=== PATIENT | male | born 1975 | race Caucasian/White ===

== ENCOUNTER 2016-07-23 15:37 | Inpatient (IN) | payer OTHER ==
[2016-07-23] MEDS ORDERED: SODIUM CHLORIDE 0.9% 500 ML IV STA (15:57)
[2016-07-23] MEDS ORDERED: HYDROmorphone 1 MG/ML 1 ML SYRINGE IVP STA (15:57)
--- NOTE | 2016-07-23 16:12 | ED ---
Abdominal Pain HPI - General Chief Complaint: Abdominal Pain Stated Complaint: liver/pancreas-sent by Time Seen by Provider: 07/23/16 15:45 Source: patient, RN notes reviewed Mode of arrival: ambulatory Limitations: no limitations - History of Present Illness Initial Comments: 41-year-old male with a recent alcoholic who quit one year ago presents because he had abdominal pain nausea vomiting any yellowing of the eyes. Patient states he went to his family care doctor and referred here. Patient states she' s had been having brown to the urine as well. Patient denies any pain or discomfort with this just at this time but states he was riding a few days ago. Patient denies any history of liver or pancreatic issues in the past. Patient states that he was concerned due to his symptoms and went to his doctor and been his doctor has now referred him here.Patient denies any recent fever, chills, shortness of breath, chest pain, back pain, numbness or tingling, dysuria or hematuria, constipation or diarrhea, headaches or visual changes, or any other current symptoms. - Related Data Home Medications Medication Instructions Recorded Confirmed Omeprazole Magnesium [Prilosec Otc] 20 mg PO QAM 07/23/16 07/23/16 Ranitidine HCl [Zantac] 150 mg PO HS 07/23/16 07/23/16 Allergies Allergy/AdvReac Type Severity Reaction Status Date / Time Penicillins Allergy Anaphylaxis Verified 07/23/16 16:12 Review of Systems ROS Statement: Those systems with pertinent positive or pertinent negative responses have been documented in the HPI. ROS Other: All systems not noted in ROS Statement are negative. Past Medical History Past Medical History: No Reported History Additional Past Medical History / Comment(s): alcohol abuse for years History of Any Multi-Drug Resistant Organisms: None Reported Past Surgical History: No Surgical Hx Reported Past Psychological History: No Psychological Hx Reported Smoking Status: Current every day smoker Past Alcohol Use History: Abuse Past Drug Use History: None Reported General Exam - General Exam Comments Initial Comments: General: The patient is awake and alert, in no distress, and does not appear acutely ill. Eye: Pupils are equal, round and reactive to light, extra-ocular movements are intact; there is normal conjunctiva bilaterally. Jaundice Ears, nose, mouth and throat: There are moist mucous membranes and no oral lesions. Neck: The neck is supple, there is no tenderness. Cardiovascular: There is a regular rate and rhythm. No murmur, rub or gallop is appreciated. Respiratory: Lungs are clear to auscultation, respirations are non-labored, breath sounds are equal. No wheezes, stridor, rales, or rhonchi. Gastrointestinal: Soft, non-distended, non-tender abdomen without masses or organomegaly noted. There is no rebound or guarding present. No CVA tenderness. Bowel sounds are unremarkable. Back: There is no tenderness to palpation in the midline. There is no obvious deformity. No rashes noted. Musculoskeletal: Normal ROM, no tenderness, There is no pedal edema. There is no calf tenderness or swelling. Sensation intact. Pulses equal bilaterally 2+. Neurological: CN II-XII intact, There are no obvious motor or sensory deficits. Coordination appears grossly intact. Speech is normal. Skin: Skin is warm and dry and no rashes or lesions are noted. Psychiatric: Cooperative, appropriate mood & affect, normal judgment. Limitations: no limitations Course Vital Signs 07/23/16 07/23/16 15:40 17:59 Temperature 97.8 F 97.8 F Pulse Rate 86 76 Respiratory 20 18 Rate Blood Pressure 141/90 124/79 O2 Sat by Pulse 98 99 Oximetry Medical Decision Making - Medical Decision Making 41-year-old male complaining of liver and pancreas issues per his doctor. At this time lab work is reviewed. Patient appears to have elevated pancreatic enzymes also appears to have elevated liver enzymes with reactive hep C here however laboratory done outpatient we does show a nonreactive hepatitis C. At this time we will admit the patient for IV hydration. At this time we will continue tract patient's labs we will consult GI and Dr. Greenfield has agreed to the admission per Dr. Tenorio. - Lab Data Result diagrams: 07/23/16 15:55 07/23/16 15:55 Lab Results 07/23/16 07/23/16 07/23/16 Range/Units 15:55 15:55 15:55 WBC 8.5 (3.8-10.6) k/uL RBC 5.38 (4.30-5.90) m/uL Hgb 17.3 (13.0-17.5) gm/dL Hct 54.7 H (39.0-53.0) % MCV 101.5 H (80.0-100.0) fL MCH 32.1 (25.0-35.0) pg MCHC 31.6 (31.0-37.0) g/dL RDW 13.7 (11.5-15.5) % Plt Count 258 (150-450) k/uL Neutrophils % 53 % Lymphocytes % 32 % Monocytes % 6 % Eosinophils % 3 % Basophils % 2 % Neutrophils # 4.5 (1.3-7.7) k/uL Lymphocytes # 2.7 (1.0-4.8) k/uL Monocytes # 0.5 (0-1.0) k/uL Eosinophils # 0.2 (0-0.7) k/uL Basophils # 0.1 (0-0.2) k/uL Macrocytosis Slight PT (9.0-12.0) sec INR (<1.1) APTT (22.0-30.0) sec Sodium 141 (137-145) mmol/L Potassium 4.8 (3.5-5.1) mmol/L Chloride 107 (98-107) mmol/L Carbon Dioxide 21 L (22-30) mmol/L Anion Gap 13 mmol/L BUN 12 (9-20) mg/dL Creatinine 0.75 (0.66-1.25) mg/dL Est GFR (MDRD) Af Amer >60 (>60 ml/min/1.73 sqM) Est GFR (MDRD) Non-Af >60 (>60 ml/min/1.73 sqM) Glucose 84 (74-99) mg/dL Plasma Lactic Acid Nelson 1.0 (0.7-2.0) mmol/L Calcium 9.3 (8.4-10.2) mg/dL Phosphorus 4.6 H (2.5-4.5) mg/dL Magnesium 2.0 (1.6-2.3) mg/dL Total Bilirubin 7.6 H (0.2-1.3) mg/dL AST 1465 H (17-59) U/L ALT 2595 H (21-72) U/L Alkaline Phosphatase 234 H (38-126) U/L Ammonia 13 (<30) umol/L Total Protein 8.0 (6.3-8.2) g/dL Albumin 4.5 (3.5-5.0) g/dL Amylase 129 H (30-110) U/L Lipase 493 H (23-300) U/L Urine Color Urine Appearance (Clear) Urine pH (5.0-8.0) Ur Specific Nichols (1.001-1.035) Urine Protein (Negative) Urine Glucose (UA) (Negative) Urine Ketones (Negative) Urine Blood (Negative) Urine Nitrite (Negative) Urine Bilirubin (Negative) Urine Urobilinogen (<2.0) mg/dL Ur Leukocyte Esterase (Negative) Hepatitis A IgM Ab NEGATIVE Hep Bs Antigen Negative Hep B Core IgM Ab NEGATIVE Hep C IgG Ab Reactive (Negative) 07/23/16 07/23/16 Range/Units 15:55 15:55 WBC (3.8-10.6) k/uL RBC (4.30-5.90) m/uL Hgb (13.0-17.5) gm/dL Hct (39.0-53.0) % MCV (80.0-100.0) fL MCH (25.0-35.0) pg MCHC (31.0-37.0) g/dL RDW (11.5-15.5) % Plt Count (150-450) k/uL Neutrophils % % Lymphocytes % % Monocytes % % Eosinophils % % Basophils % % Neutrophils # (1.3-7.7) k/uL Lymphocytes # (1.0-4.8) k/uL Monocytes # (0-1.0) k/uL Eosinophils # (0-0.7) k/uL Basophils # (0-0.2) k/uL Macrocytosis PT 11.7 (9.0-12.0) sec INR 1.2 (<1.1) APTT 27.2 (22.0-30.0) sec Sodium (137-145) mmol/L Potassium (3.5-5.1) mmol/L Chloride (98-107) mmol/L Carbon Dioxide (22-30) mmol/L Anion Gap mmol/L BUN (9-20) mg/dL Creatinine (0.66-1.25) mg/dL Est GFR (MDRD) Af Amer (>60 ml/min/1.73 sqM) Est GFR (MDRD) Non-Af (>60 ml/min/1.73 sqM) Glucose (74-99) mg/dL Plasma Lactic Acid Nelson (0.7-2.0) mmol/L Calcium (8.4-10.2) mg/dL Phosphorus (2.5-4.5) mg/dL Magnesium (1.6-2.3) mg/dL Total Bilirubin (0.2-1.3) mg/dL AST (17-59) U/L ALT (21-72) U/L Alkaline Phosphatase (38-126) U/L Ammonia (<30) umol/L Total Protein (6.3-8.2) g/dL Albumin (3.5-5.0) g/dL Amylase (30-110) U/L Lipase (23-300) U/L Urine Color Dark Brown Urine Appearance Clear (Clear) Urine pH 6.0 (5.0-8.0) Ur Specific Nichols 1.018 (1.001-1.035) Urine Protein Trace H (Negative) Urine Glucose (UA) Negative (Negative) Urine Ketones Negative (Negative) Urine Blood Negative (Negative) Urine Nitrite Negative (Negative) Urine Bilirubin 2+ H (Negative) Urine Urobilinogen 4.0 (<2.0) mg/dL Ur Leukocyte Esterase Negative (Negative) Hepatitis A IgM Ab Hep Bs Antigen Hep B Core IgM Ab Hep C IgG Ab (Negative) - Radiology Data Radiology results: report reviewed, image reviewed Disposition Clinical Impression: Alcoholic hepatitis, Hepatitis C, Jaundice, Acute pancreatitis Disposition: ADMITTED IP TO THIS [facility] Condition: Stable Referrals: Georgia Waggoner MD [Primary Care Provider] - 1-2 days Time of Disposition: 18:07 Decision Date: 07/23/16 Decision Time: 18:07
[2016-07-23 16:14] LABS: Basophils # (A) 0.1 k/uL (0-0.2); Basophils % (A) 2 %; CH 32.5; CHCM 32.2; Eosinophils # (A) 0.2 k/uL (0-0.7); Eosinophils % (A) 3 %; HCT 54.7 % (39.0-53.0); HDW 2.62; HGB 17.3 gm/dL (13.0-17.5); Luc # (Auto) 0.37; Luc % (Auto) 4; Lymphocytes # (A) 2.7 k/uL (1.0-4.8); Lymphocytes % (A) 32 %; MCH 32.1 pg (25.0-35.0); MCHC 31.6 g/dL (31.0-37.0); MCV 101.5 fL (80.0-100.0); Macrocytosis Slight; Mean Platelet Volume 7.9; Monocytes # (A) 0.5 k/uL (0-1.0); Monocytes % (A) 6 %; Neutrophils # (A) 4.5 k/uL (1.3-7.7); Neutrophils % (A) 53 %; RBC 5.38 m/uL (4.30-5.90); RDW 13.7 % (11.5-15.5); WBC 8.5 k/uL (3.8-10.6); WBC (Perox) 7.73
[2016-07-23 16:25] LABS: Appearance,Urine Clear (Clear); Bilirubin,Urine 2+ (Negative); Glucose,Urine (UA) Negative (Negative); Ketones,Urine Negative (Negative); Leukocyte Esterase,Urine Negative (Negative); Nitrite,Urine Negative (Negative); Protein,Urine Trace (Negative); Specific Gravity,Urine 1.018 (1.001-1.035); UA Billing (MACRO vs. MICRO) CHEM
[2016-07-23 16:26] LABS: Alkaline Phosphatase 234 U/L (38-126); Amylase 129 U/L (30-110); Anion Gap 13 mmol/L; Blood Urea Nitrogen 12 mg/dL (9-20); Calcium 9.3 mg/dL (8.4-10.2); Carbon Dioxide 21 mmol/L (22-30); Chloride 107 mmol/L (98-107); Glucose 84 mg/dL (74-99); Non-African American GFR(MDRD) >60 (>60 ml/min/1.73 sqM); Phosphorous 4.6 mg/dL (2.5-4.5); Potassium 4.8 mmol/L (3.5-5.1); Sodium 141 mmol/L (137-145); Total Bilirubin 7.6 mg/dL (0.2-1.3)
[2016-07-23 16:36] LABS: AST 1465 U/L (17-59)
[2016-07-23 16:43] LABS: INR 1.2 (<1.1); Partial Thromboplastin Time 27.2 sec (22.0-30.0); Prothrombin Time 11.7 sec (9.0-12.0)
[2016-07-23 16:44] LABS: ALT 2595 U/L (21-72)
--- NOTE | 2016-07-23 17:11 | XR ---
EXAMINATION TYPE: XR abdomen 2V DATE OF EXAM: 07/23/2016 COMPARISON: 11/20/2010 HISTORY: Abdominal pain TECHNIQUE: 2 views FINDINGS: There is no sign of intestinal obstruction or pneumoperitoneum. Fecal pattern is normal. Juhi ng bases are clear. There are no pathologic calcifications over the kidneys. IMPRESSION: Nonacute abdomen. No change.
[2016-07-23 17:15] LABS: Hepatitis B Surface Ag Index 0.07
[2016-07-23 17:16] LABS: Hepatitis B Core IgM Index 0.04; Hepatitis C Virus IgG Ab Reactive (Negative)
--- NOTE | 2016-07-23 17:23 | US ---
EXAMINATION TYPE: US abdomen limited DATE OF EXAM: 07/23/2016 COMPARISON: NONE CLINICAL HISTORY: RUQ. EXAM MEASUREMENTS: Liver Length: 16.6 cm Gallbladder Wall: 1.0 cm CBD: 0.3 cm Right Kidney: 11.9 x 4.7 x 5.3 cm Pancreas: wnl Liver: wnl Gallbladder: very thick edematous wall, no stones visualized Evidence for sonographic Wright's sign: No CBD: wnl Right Kidney: wnl IMPRESSION: There is gallbladder wall thickening. No stones seen. This is suggestive of acalculous ch olecystitis. No dilated ducts.
[2016-07-23] MEDS ORDERED: NALOXONE 0.4 MG/ML 1 ML VIAL IV PRN (18:08)
[2016-07-23] MEDS ORDERED: ONDANSETRON 4 MG/2 ML VIAL IVP PRN (18:08)
[2016-07-23] MEDS: SODIUM CHLORIDE 0.9% 1,000 ML IV SCH (18:31)
[2016-07-23 18:59] LABS: Acetaminophen <10.0 ug/mL; Alcohol <10 mg/dL
[2016-07-23] MEDS: HYDROmorphone 1 MG/ML 1 ML SYRINGE IV PRN ×2 (19:19→22:29)
[2016-07-23 19:29] VITALS: BMI 24.7
[2016-07-23] MEDS ORDERED: FAMOTIDINE 20 MG TAB PO SCH (21:00)
[2016-07-23] MEDS: CALCIUM CARBONATE LIQUID 500 MG/5 ML CUP PO SCH (22:30)
[2016-07-23] MEDS: NICOTINE 21MG/24HR PATCH TRANSDERM SCH (22:30)
[2016-07-24] MEDS: HYDROmorphone 1 MG/ML 1 ML SYRINGE IV PRN ×7 (02:16→23:03)
[2016-07-24] MEDS: SODIUM CHLORIDE 0.9% 1,000 ML IV SCH ×3 (07:01→16:17)
[2016-07-24] MEDS: PANTOPRAZOLE 40 MG TABLET PO SCH (07:01)
[2016-07-24] MEDS: CALCIUM CARBONATE LIQUID 500 MG/5 ML CUP PO SCH ×3 (07:01→17:20)
--- NOTE | 2016-07-24 07:44 | HP ---
DATE OF ADMISSION: 07/23/2016 PRESENTING COMPLAINT: Abdominal pain. HISTORY OF PRESENTING COMPLAINT: This is a 41-year-old patient who follows with Dr. Georgia Waggoner. Patient has been a long-standing alcoholic for over 20 years. Stopped drinking about a month ago since not feeling well. Patient started not feeling well about 3-4 weeks and increasing abdominal pain for the last 2 weeks; urine becoming strongly discolored. Having increasing upper abdominal pain, nausea, decreased bowel movement. No fever. Went to a local doctor and was sent in. Patient was found to have grossly elevated liver enzymes and admitted for the same. REVIEW OF SYSTEMS: Weight loss, loss of appetite. HEENT: None. RESPIRATORY: Some wheezing. CARDIOVASCULAR: None. GASTROINTESTINAL: As above. GENITOURINARY: None. MUSCULOSKELETAL: None. Dermatological: Yellow eyes. HEMATOLOGICAL: None. LYMPHATICS: None. PSYCHIATRY: Anxious. NEUROLOGICAL: None. PAST MEDICAL HISTORY: History of alcohol abuse. PAST SURGICAL HISTORY: None. SOCIAL HISTORY: Pack and a half day. Alcohol for over 20 years, cut back a month ago, basically homeless, currently stable in parents. Family history of myocardial infarction and MS. HOME MEDICATIONS: 1. Zantac 150 mg q.h.s. 2. Prilosec 20 mg p.o. daily. ALLERGIES: PENICILLIN. On examination, temperature 98, pulse 76, respiration 18, blood pressure 120/72, pulse ox 99% on room air., General appearance: Average build, lying in bed, somewhat restless. EYES: Pupils equal. Conjunctivae yellow. HEENT: Oral cavity normal. NECK: JVD not raised. Mass not palpable. RESPIRATORY: Effort increased. LUNGS: Decreased breath sounds. Mild wheezing. CARDIOVASCULAR: First and second sounds normal. No edema. ABDOMEN: Diffuse abdominal tenderness. Mild guarding. No rigidity. LYMPHATIC: No lymph node palpable in neck or axillae. PSYCHIATRY: Alert and oriented x3. Mood and affect anxious -appearing. NEUROLOGICAL: Pupils equal. Cranial nerves grossly intact. Power and sensation grossly intact. INVESTIGATIONS: White count 8.5, hemoglobin 7.3, potassium 4.8 and ( ) 7.6, AST 1465, ALT 2595, amylase 129, lipase 193, and serum alcohol less than 10, ( ) IgG antibody reactive. ASSESSMENT: 1. Acute severe alcoholic hepatitis. 2. Hyperbilirubinemia. 3. Alcoholic pancreatitis. 4. Chronic alcohol dependence. 5. Chronic nicotine dependence. 6. Probable acute and chronic gastritis from alcoholism. PLAN: The patient is put on IV proton pump inhibitor, IV fluids. Put on a liquid diet. Advised against smoking and will put on a nicotine patch and Gastroenterology was consulted. We will do neuro checks for hepatic failure. We will also give TUMS for the gastric lining. Patient counseled against smoking and alcohol. Given a nicotine patch. Gastroenterology was consulted. Copy to Dr. Georgia Waggoner.
[2016-07-24 08:02] LABS: INR 1.3 (<1.1); Prothrombin Time 12.5 sec (9.0-12.0)
[2016-07-24 08:04] LABS: Aty Lym Flag Slight; CHCM 32.4; HDW 2.73; HGB 15.2 gm/dL (13.0-17.5); MCH 32.2 pg (25.0-35.0); MCHC 32.4 g/dL (31.0-37.0); MCV 99.4 fL (80.0-100.0); Mean Platelet Volume 7.7; RBC 4.72 m/uL (4.30-5.90); RDW 13.4 % (11.5-15.5); WBC 5.9 k/uL (3.8-10.6); WBC (Perox) 6.09
[2016-07-24 08:18] LABS: Alkaline Phosphatase 186 U/L (38-126); Anion Gap 9 mmol/L; Blood Urea Nitrogen 11 mg/dL (9-20); Calcium 9.1 mg/dL (8.4-10.2); Carbon Dioxide 24 mmol/L (22-30); Chloride 107 mmol/L (98-107); Glucose 97 mg/dL (74-99); Magnesium 1.8 mg/dL (1.6-2.3); Non-African American GFR(MDRD) >60 (>60 ml/min/1.73 sqM); Phosphorous 4.3 mg/dL (2.5-4.5); Potassium 4.5 mmol/L (3.5-5.1); Sodium 140 mmol/L (137-145); Total Bilirubin 8.5 mg/dL (0.2-1.3); Total Protein 6.4 g/dL (6.3-8.2)
[2016-07-24 08:41] LABS: Add Differential Manual Differential
[2016-07-24 08:45] LABS: Nucleated Red Blood Cells 0 /100 WBC (0-0); Total Cells Counted 200
[2016-07-24 08:50] LABS: Target Cells Present
[2016-07-24] MEDS: ENOXAPARIN 40 MG/0.4 ML SYRINGE SQ SCH (08:54)
[2016-07-24 08:57] LABS: ALT 2230 U/L (21-72); AST 1444 U/L (17-59)
[2016-07-24] MEDS ORDERED: NICOTINE 21MG/24HR PATCH TRANSDERM SCH (09:00)
[2016-07-24] MEDS: NICOTINE 21MG/24HR PATCH TRANSDERM SCH (10:01)
--- NOTE | 2016-07-24 10:06 | P.CONS ---
History of Present Illness - Reason for Consult Consult date: 07/24/16 Hepatitis Requesting physician: Stephan Magallon - History of Present Illness 41-year-old male admitted with a 2 week history of generalized malaise fatigue, mild right upper quadrant discomfort and jaundice with dark colored urine. Patient was evaluated in the outpatient setting. Chemistries revealed total bilirubin 6.0. AST 970. ALT 2620. Alkaline phosphatase 229. Hepatitis panel nonreactive on July 19. Lipase 99. Past medical history of heavy EtOH abuse kind to fifth of vodka daily for 20 years quit a month ago. History of IVDA heroin abuse. Last heroin usage about 2 months ago but reports using "clean" needle. Denies consumption of acetaminophen or aspirin. No other illicit drugs. No history of hepatitis or known liver disorders. Denies weight loss fever or chills. Denies acholic stools. No recent travels. No diarrhea. Admission white count 8.5. Hemoglobin 17.3. MCV 101.5. Hematocrit 54.7. Total bilirubin 7.6-8.5. AST 5893-9774. ALT 1263-1494. Alkaline phosphatase 186- 234. Ammonia 13. Acetaminophen less than 10. Serum alcohol less than 10. Lipase 493. Amylase 129. INR 1.2-1.3. Hepatitis panel in the outpatient setting on July 19 was nonreactive however hepatitis panel yesterday was reactive for hepatitis C IgG antibody. Abdominal ultrasound pancreas liver within normal limits. Gallbladder thick edematous wall 1 cm, no stones. No dilated ducts. CBD 0.3 cm. Review of Systems Constitutional: Denies fever, chills, sweats, weight gain, or loss. HEENT: Negative for migraines, blurred vision or loss, earaches, drainage, tinnitus, oral mucosal lesions, dysphagia, or odynophagia. Cardiac: Negative for chest pain, arrhythmias, or palpitation. Respiratory: Nicotine cigarette dependency. Negative for shortness of breath, hemoptysis, cough, or sputum production. Gastrointestinal: See HPI for pertinent findings. Genitourinary: Negative for hematuria, urgency, frequency, polyuria, dysuria, or penile discharge. Musculoskeletal: Negative for muscle aches, swelling, arthritis, and arthralgias. Neurologic: Negative for stroke or TIA. Endocrine: Negative for thyroid problems. Skin: Negative for rash or itching. Psychiatric: Negative history for depression and anxiety. IVDA heroin abuse. All systems: negative (See HPI) Past Medical History Past Medical History: No Reported History Additional Past Medical History / Comment(s): alcohol abuse for years History of Any Multi-Drug Resistant Organisms: None Reported Past Surgical History: No Surgical Hx Reported Past Psychological History: No Psychological Hx Reported Smoking Status: Current every day smoker Past Alcohol Use History: Abuse Past Drug Use History: None Reported - Past Family History Father Family Medical History: Myocardial Infarction (MD) Mother Additional Family Medical History / Comment(s): MS Medications and Allergies Home Medications Medication Instructions Recorded Confirmed Type Omeprazole Magnesium [Prilosec Otc] 20 mg PO QAM 07/23/16 07/23/16 History Ranitidine HCl [Zantac] 150 mg PO HS 07/23/16 07/23/16 History Allergies Allergy/AdvReac Type Severity Reaction Status Date / Time Penicillins Allergy Anaphylaxis Verified 07/23/16 16:12 Physical Exam Vitals: Vital Signs Temp Pulse Pulse Resp BP BP BP 07/24/16 08:00 68 16 07/24/16 07:00 97.6 F 68 16 106/58 07/23/16 23:09 83 18 07/23/16 22:59 97.8 F 83 18 120/73 07/23/16 19:19 98 F 78 18 121/72 07/23/16 18:29 97.7 F 64 18 131/74 07/23/16 17:59 97.8 F 76 18 124/79 07/23/16 15:40 97.8 F 86 20 141/90 Pulse Ox 07/24/16 08:00 07/24/16 07:00 98 07/23/16 23:09 07/23/16 22:59 99 07/23/16 19:19 99 07/23/16 18:29 99 07/23/16 17:59 99 07/23/16 15:40 98 Intake and Output 07/23/16 07/24/16 07/24/16 22:59 06:59 14:59 Intake Total 400 800 240 Balance 400 800 240 Intake: Intake, IV Titration 400 800 Amount Sodium Chloride 0.9% 1, 400 800 000 ml @ 100 mls/hr IV . Q10H CECE Rx#:[id number] Oral 240 Other: Voiding Method Toilet Toilet Toilet # Voids 2 2 Weight 80.467 kg 80.467 kg Patient Weight 07/25/16 06:59 Weight 80.467 kg General appearance: The patient is alert, oriented, in no acute distress. Visibly jaundiced. HET: Head is normocephalic and atraumatic. Pupils are equal and reactive. Scleral icterus. Oropharynx is clear without lesions. Neck: Supple without lymphadenopathy. Trachea midline. Heart: S1 S2. Regular rate and rhythm. Lungs: No crackles or wheezes are heard. Abdomen: Soft, mild tenderness to the right upper quadrant, nondistended with bowel sounds. No peritoneal signs. No palpable organomegaly or masses. Extremities: Normal skin color and turgor. No cyanosis, rash, ulceration, clubbing, or edema. Radial and pedal pulses are 2/4 bilaterally. Neurological: No focal deficits. Strength and sensation are grossly intact. Results CBC & Chem 7: 07/24/16 07:22 07/24/16 07:22 Labs: Abnormal Lab Results - Last 24 Hours (Table) 07/23/16 07/23/16 07/23/16 Range/Units 15:55 15:55 15:55 Hct 54.7 H (39.0-53.0) % MCV 101.5 H (80.0-100.0) fL PT (9.0-12.0) sec Carbon Dioxide 21 L (22-30) mmol/L Phosphorus 4.6 H (2.5-4.5) mg/dL Total Bilirubin 7.6 H (0.2-1.3) mg/dL AST 1465 H (17-59) U/L ALT 2595 H (21-72) U/L Alkaline Phosphatase 234 H (38-126) U/L Amylase 129 H (30-110) U/L Lipase 493 H (23-300) U/L Urine Protein Trace H (Negative) Urine Bilirubin 2+ H (Negative) 07/24/16 07/24/16 Range/Units 07:22 07:22 Hct (39.0-53.0) % MCV (80.0-100.0) fL PT 12.5 H (9.0-12.0) sec Carbon Dioxide (22-30) mmol/L Phosphorus (2.5-4.5) mg/dL Total Bilirubin 8.5 H (0.2-1.3) mg/dL AST 1444 H (17-59) U/L ALT 2230 H (21-72) U/L Alkaline Phosphatase 186 H (38-126) U/L Amylase (30-110) U/L Lipase (23-300) U/L Urine Protein (Negative) Urine Bilirubin (Negative) Microbiology - Last 24 Hours (Table) 07/23/16 15:55 Urine Culture - Preliminary Urine,Voided US - abdomen: report reviewed (Dr. Hussein) Assessment and Plan (1) Acute hepatitis Narrative/Plan: Suspect acute hepatitis C viral infection with superimposed alcohol hepatitis. Status: Acute (2) Hepatitis C antibody positive in blood Status: Acute (3) Alcoholic hepatitis Status: Acute (4) Alcohol abuse Status: Chronic (5) Heroin abuse Status: Acute (6) Alcoholic pancreatitis Status: Suspected (7) Jaundice, hepatocellular Status: Acute Plan: 1. Will obtain hepatitis C RNA quantitative measurement/genotype. 2. Will obtain viral studies CMV/EBV. Salicylate level. 3. IVDA EtOH abstinence strongly advised. 4. Continue supportive and symptomatically treatment. 5. Daily CMP/PT/INR. For now INR is stable we'll continue to monitor closely. 6. Light diet/full liquid diet as tolerated. We'll follow closely with you. Thank you for this kind referral and the opportunity to participate in the care of your patient. This consultation was discussed with Dr. Hussein. The impression and plan of care have been directed as dictated.
--- NOTE | 2016-07-24 20:31 | PN ---
DATE OF SERVICE: 07/24/2016 PRESENTING COMPLAINT: Abdominal pain. INTERVAL HISTORY: This is a patient who presented with severe pancreatitis, alcohol related and gastritis. Still having significant abdominal pain. LFTs are not really changed. GI was consulted. Patient does drink some liquid diet in bed. Review of systems done for constitutional, cardiovascular, GI, pulmonary; relevant findings as above. Current medications are reviewed that include Protonix, IV fluids, TUMs. On examination, temperature 97.5, pulse 68, respirations 16, blood pressure 108/72, pulse ox 99% on room air. GENERAL APPEARANCE: Lying in bed, restless. EYES: Pupils equal. Conjunctivae yellow. NECK: JVD not raised. Mass not palpable. RESPIRATORY: Effort normal. LUNGS: Decreased breath sounds. Some wheezing. CARDIOVASCULAR: First and second sounds normal. No edema. ABDOMEN: Diffuse tenderness. No guarding or rigidity. Bowel sounds are present. PSYCHIATRY: Alert and oriented x3. Mood and affect anxious -appearing. INVESTIGATIONS: White count 5.9, hemoglobin 15.2. Potassium 4.5, total bilirubin 8.5, AST 1444, ALT 2230. ASSESSMENT: 1. Acute severe alcoholic hepatitis, slow to respond. 2. Hyperbilirubinemia. 3. Alcoholic pancreatitis. 4. Chronic alcohol dependence. 5. Chronic nicotine dependence. 6. Possible acute on chronic gastritis from alcoholism. PLAN: Prognosis remains guarded. Follow to GI. Care was discussed with the patient. Again re-emphasized no alcohol. Follow.
[2016-07-25] MEDS: HYDROmorphone 1 MG/ML 1 ML SYRINGE IV PRN ×7 (02:47→22:21)
[2016-07-25] MEDS: SODIUM CHLORIDE 0.9% 1,000 ML IV SCH ×2 (02:51→15:12)
[2016-07-25 04:54] LABS: EBV - EA (IgG) <5.0 U/mL (<9.0); EBV - EBNA (IgG) >600.0 U/mL (<18.0); EBV - VCA (IgG) >750.0 U/mL (<18.0); EBV - VCA IgM <10.0 U/mL (<36.0)
[2016-07-25] MEDS: ENOXAPARIN 40 MG/0.4 ML SYRINGE SQ SCH (07:43)
[2016-07-25] MEDS: NICOTINE 21MG/24HR PATCH TRANSDERM SCH (07:43)
[2016-07-25] MEDS: CALCIUM CARBONATE LIQUID 500 MG/5 ML CUP PO SCH ×3 (07:43→17:38)
[2016-07-25] MEDS: PANTOPRAZOLE 40 MG TABLET PO SCH (07:43)
[2016-07-25 08:16] LABS: INR 1.3 (<1.1); Prothrombin Time 12.6 sec (9.0-12.0)
[2016-07-25 08:18] LABS: Basophils # (A) 0.1 k/uL (0-0.2); Basophils % (A) 1 %; CH 32.2; CHCM 32.4; Eosinophils # (A) 0.2 k/uL (0-0.7); Eosinophils % (A) 4 %; HCT 47.1 % (39.0-53.0); HDW 2.64; HGB 15.3 gm/dL (13.0-17.5); Luc # (Auto) 0.21; Luc % (Auto) 5; Lymphocytes # (A) 1.6 k/uL (1.0-4.8); Lymphocytes % (A) 35 %; MCH 32.5 pg (25.0-35.0); MCHC 32.5 g/dL (31.0-37.0); MCV 99.9 fL (80.0-100.0); Mean Platelet Volume 7.6; Monocytes # (A) 0.4 k/uL (0-1.0); Monocytes % (A) 9 %; Neutrophils # (A) 2.2 k/uL (1.3-7.7); Neutrophils % (A) 47 %; RBC 4.71 m/uL (4.30-5.90); RDW 13.4 % (11.5-15.5); WBC 4.6 k/uL (3.8-10.6)
[2016-07-25 08:33] LABS: Alkaline Phosphatase 194 U/L (38-126); Anion Gap 8 mmol/L; Blood Urea Nitrogen 9 mg/dL (9-20); Calcium 9.1 mg/dL (8.4-10.2); Carbon Dioxide 27 mmol/L (22-30); Chloride 107 mmol/L (98-107); Glucose 85 mg/dL (74-99); Non-African American GFR(MDRD) >60 (>60 ml/min/1.73 sqM); Potassium 4.5 mmol/L (3.5-5.1); Sodium 142 mmol/L (137-145); Total Bilirubin 9.5 mg/dL (0.2-1.3); Total Protein 6.5 g/dL (6.3-8.2)
[2016-07-25 08:48] LABS: AST 1481 U/L (17-59)
[2016-07-25 09:04] LABS: ALT 2230 U/L (21-72)
--- NOTE | 2016-07-25 11:16 | P.PN ---
Subjective Principal diagnosis: Hepatitis 41-year-old male with a history of IVDA heroin abuse admitted with 2 week history jaundice generalized malaise. Hepatitis panel reactive for hepatitis C antibody. Additional hepatitis C testing is pending. Afebrile. INR stable at 1.3. LFTs relatively unchanged total bilirubin slightly increased to 9.5. Lipase 300. AFP 3.2. Tolerating regular diet. CMV nonreactive. EBV nuclear and capsid antigen IgG antibody elevated suspect previous exposure. Salicylate <1.0. Objective - Vital Signs Vital signs: Vital Signs Temp 97.6 F 07/25/16 07:00 Pulse 65 07/25/16 08:00 Resp 16 07/25/16 08:00 BP 105/64 07/25/16 07:00 Pulse Ox 97 07/25/16 07:00 Intake & Output 07/24/16 07/25/16 07/25/16 18:59 06:59 18:59 Intake Total 1420 1200 240 Balance 1420 1200 240 Weight 80.467 kg 80.467 kg Intake: Intake, IV Titration 700 1200 Amount Sodium Chloride 0.9% 1, 700 1200 000 ml @ 100 mls/hr IV . Q10H [facility]CE Rx#:[id number] Oral 720 240 Other: Voiding Method Toilet Toilet Toilet # Voids 2 2 2 - Exam General appearance: The patient is alert, oriented, in no acute distress. Jaundice. Sclerae icterus. HET: Head is normocephalic and atraumatic. Pupils are equal and reactive. Oropharynx is clear without lesions. Neck: Supple without lymphadenopathy. Trachea midline. Heart: S1 S2. Regular rate and rhythm. Lungs: No crackles or wheezes are heard. Abdomen: Soft, mild tenderness right upper quadrant, nondistended with bowel sounds. No peritoneal signs. No palpable organomegaly or masses. Extremities: Normal skin color and turgor. No cyanosis, rash, ulceration, clubbing, or edema. Radial and pedal pulses are 2/4 bilaterally. Neurological: No focal deficits. Strength and sensation are grossly intact. - Labs CBC & Chem 7: 07/25/16 07:48 07/25/16 07:48 Labs: Abnormal Lab Results - Last 24 Hours (Table) 07/24/16 07/25/16 07/25/16 Range/Units 12:16 07:48 07:48 PT 12.6 H (9.0-12.0) sec Total Bilirubin 9.5 H (0.2-1.3) mg/dL AST 1481 H (17-59) U/L ALT 2230 H (21-72) U/L Alkaline Phosphatase 194 H (38-126) U/L EBV Capsid Ag IgG Ab >750.0 H (<18.0) U/mL EBV Nuclear Ag IgG Ab >600.0 H (<18.0) U/mL Microbiology - Last 24 Hours (Table) 07/23/16 15:55 Urine Culture - Final Urine,Voided 07/23/16 15:55 Blood Culture - Preliminary Blood No Growth after 24 hours Assessment and Plan (1) Acute hepatitis Narrative/Plan: Suspect acute hepatitis C viral infection with superimposed alcohol hepatitis. Status: Acute (2) Hepatitis C antibody positive in blood Status: Acute (3) Alcoholic hepatitis Status: Acute (4) Alcohol abuse Status: Chronic (5) Heroin abuse Status: Acute (6) Alcoholic pancreatitis Status: Suspected (7) Jaundice, hepatocellular Status: Acute Plan: 1. Agreeable for discharge. Follow up in GI office in 1-2 weeks after discharge for reevaluation. Assessment and plan of care discussed with Dr. Rocha.
--- NOTE | 2016-07-25 16:06 | P.PN ---
Progress Note - Text DATE OF SERVICE: 07/25/2016 PRESENTING COMPLAINT: Abdominal pain INTERVAL HISTORY: This a patient who is admitted with severe alcoholic hepatitis, acute pancreatitis, acute gastritis. The patient is lying in bed, still has some abdominal pain, tolerating his liquid diet, ambulatory within the room. REVIEW OF SYSTEMS: Done for constitutional ,cardiovascular, GI, pulmonary with relevant findings as above. CURRENT MEDICATIONS Lovenox, hydromorphone, nicotine patch, Protonix. PHYSICAL EXAM: VITAL SIGNS: GENERAL APPEARANCE: Lying in bed, uncomfortable appearing. EYES: Pupils equal. Conjunctiva normal. NECK: JVD not raised. Mass not palpable. RESPIRATORY: Respiratory effort normal. Lungs diminished to auscultation. CARDIOVASCULAR: First and second sounds normal. No edema. ABDOMEN: Soft diffuse tenderness Liver and spleen not palpable. . No mass palpable. PSYCHIATRY: Alert and oriented x3. Mood and affect anxious appearing. INVESTIGATIONS: CBC unremarkable, total bilirubin 9.5, AST 1481, ALTs 2230, alkaline phosphatase 194, lipase 300 ASSESSMENT: Acute severe alcoholic hepatitis, slow to respond Hyperbilirubinemia, worsening Alcoholic pancreatitis, unchanged Chronic alcohol dependence Chronic nicotine dependence. Acute and chronic gastritis from alcoholism PLAN: Continue current medication and treatment plan. We'll continue to follow closely. LAWN SERVICE SUPERVISOR statement: Patient was seen and examined by nurse practitioner Tina Goodwin in all elements of the case discussed with attending is Dr. Magallon
[2016-07-26] MEDS: HYDROmorphone 1 MG/ML 1 ML SYRINGE IV PRN ×7 (01:36→18:05)
--- NOTE | 2016-07-26 07:32 | PN ---
DATE OF SERVICE: 07/25/2016 ATTENDING NOTE: This patient was seen and examined by me earlier today. I reviewed the note of my nurse practitioner, Ms. Goodwin. I reviewed, discussed, additional findings below. This patient with alcoholism present with acute severe alcoholic hepatitis, gastritis, and pancreatitis. Feels a shade better. Did tell him to eat the light ( ) food and avoid acetic foods. The patient does appear to be uncomfortable. Has been up to the bathroom. On examination, epigastric tenderness present. No guarding or rigidity. PSYCH: Alert and oriented x3. Patient anxious-appearing. INVESTIGATIONS: AST 142 and ALT 5230. Kaveh-Cody virus antibodies noted. ASSESSMENT: 1. Acute severe alcoholic hepatitis, slow to respond. 2. Acute on chronic gastritis from alcoholism. 3. Hyperbilirubinemia worsening. 4. Acute alcoholic pancreatitis. PLAN: Patient told to keep on taking light diet, avoid acidic foods. Encouraged to ambulate. Follow with GI. Patient reiterated about not drinking alcohol.
[2016-07-26] MEDS: SODIUM CHLORIDE 0.9% 1,000 ML IV SCH ×2 (08:13→17:10)
[2016-07-26] MEDS: PANTOPRAZOLE 40 MG TABLET PO SCH (08:13)
[2016-07-26] MEDS: CALCIUM CARBONATE LIQUID 500 MG/5 ML CUP PO SCH ×3 (08:13→17:11)
[2016-07-26] MEDS: NICOTINE 21MG/24HR PATCH TRANSDERM SCH (08:13)
[2016-07-26] MEDS: ENOXAPARIN 40 MG/0.4 ML SYRINGE SQ SCH (08:14)
[2016-07-26 10:58] LABS: Basophils # (A) 0.1 k/uL (0-0.2); Basophils % (A) 1 %; CH 32.1; CHCM 32.4; Eosinophils # (A) 0.2 k/uL (0-0.7); Eosinophils % (A) 4 %; HCT 44.2 % (39.0-53.0); HDW 2.64; HGB 14.6 gm/dL (13.0-17.5); Luc # (Auto) 0.18; Luc % (Auto) 4; Lymphocytes # (A) 1.3 k/uL (1.0-4.8); Lymphocytes % (A) 30 %; MCH 32.9 pg (25.0-35.0); MCHC 33.1 g/dL (31.0-37.0); MCV 99.6 fL (80.0-100.0); Mean Platelet Volume 7.5; Monocytes # (A) 0.3 k/uL (0-1.0); Monocytes % (A) 7 %; Neutrophils # (A) 2.4 k/uL (1.3-7.7); Neutrophils % (A) 53 %; RBC 4.44 m/uL (4.30-5.90); RDW 13.5 % (11.5-15.5); WBC 4.4 k/uL (3.8-10.6); WBC (Perox) 4.61
[2016-07-26 11:09] LABS: Alkaline Phosphatase 194 U/L (38-126); Anion Gap 9 mmol/L; Blood Urea Nitrogen 9 mg/dL (9-20); Calcium 9.3 mg/dL (8.4-10.2); Carbon Dioxide 27 mmol/L (22-30); Chloride 105 mmol/L (98-107); Glucose 89 mg/dL (74-99); Non-African American GFR(MDRD) >60 (>60 ml/min/1.73 sqM); Potassium 4.4 mmol/L (3.5-5.1); Sodium 141 mmol/L (137-145); Total Protein 6.2 g/dL (6.3-8.2)
--- NOTE | 2016-07-26 11:11 | P.PN ---
Subjective Principal diagnosis: Hepatitis 41-year-old male with a history of IVDA heroin abuse admitted with 2 week history jaundice generalized malaise. Hepatitis panel reactive for hepatitis C antibody. Additional hepatitis C testing is pending. Afebrile. INR stable yesterday at 1.3. LFTs pending today. Tolerating regular diet. Objective - Vital Signs Vital signs: Vital Signs Temp 97.3 F L 07/25/16 21:43 Pulse 80 07/26/16 08:00 Resp 18 07/26/16 08:00 BP 112/65 07/26/16 07:00 Pulse Ox 97 07/26/16 07:00 Intake & Output 07/25/16 07/26/16 07/26/16 18:59 06:59 18:59 Intake Total 1920 800 Balance 1920 800 Weight 80.467 kg 80.467 kg Intake: IV 800 Sodium Chloride 0.9% 1, 800 000 ml @ 100 mls/hr IV . Q10H [facility] Rx#:[id number] Intake, IV Titration 600 Amount Sodium Chloride 0.9% 1, 600 000 ml @ 100 mls/hr IV . Q10H [facility] Rx#:[id number] Oral 1320 Other: Voiding Method Toilet Toilet Toilet # Voids 2 1 1 - Exam General appearance: The patient is alert, oriented, in no acute distress. Jaundice. Sclerae icterus. HET: Head is normocephalic and atraumatic. Pupils are equal and reactive. Oropharynx is clear without lesions. Neck: Supple without lymphadenopathy. Trachea midline. Heart: S1 S2. Regular rate and rhythm. Lungs: No crackles or wheezes are heard. Abdomen: Soft, mild tenderness right upper quadrant, nondistended with bowel sounds. No peritoneal signs. No palpable organomegaly or masses. Extremities: Normal skin color and turgor. No cyanosis, rash, ulceration, clubbing, or edema. Radial and pedal pulses are 2/4 bilaterally. Neurological: No focal deficits. Strength and sensation are grossly intact. - Labs CBC & Chem 7: 07/26/16 10:15 07/25/16 07:48 Labs: Microbiology - Last 24 Hours (Table) 07/23/16 15:55 Blood Culture - Preliminary Blood No Growth after 48 hours Assessment and Plan (1) Acute hepatitis Narrative/Plan: Suspect acute hepatitis C viral infection with superimposed alcohol hepatitis. Status: Acute (2) Hepatitis C antibody positive in blood Status: Acute (3) Alcoholic hepatitis Status: Acute (4) Alcohol abuse Status: Chronic (5) Heroin abuse Status: Acute (6) Alcoholic pancreatitis Status: Suspected (7) Jaundice, hepatocellular Status: Acute Plan: 1. Discharge per medicine if LFTs stable this morning. Repeat CMP within a week of discharge. Follow up in GI office in 7-10 days. We'll sign off. Assessment and plan a care discussed with Dr. Rocha
[2016-07-26 11:16] LABS: AST 1483 U/L (17-59)
[2016-07-26 11:52] LABS: ALT 2171 U/L (21-72)
--- NOTE | 2016-07-26 14:35 | P.PN ---
Progress Note - Text DATE OF SERVICE: 07/26/2016 PRESENTING COMPLAINT: Abdominal pain INTERVAL HISTORY: This a patient who is admitted with severe alcoholic hepatitis, acute pancreatitis, acute gastritis. The patient is lying in bed, still has some abdominal pain, tolerating his liquid diet still trying to avoid acidic foods, ambulatory within the room, is anxious appearing. REVIEW OF SYSTEMS: Done for constitutional ,cardiovascular, GI, pulmonary with relevant findings as above. CURRENT MEDICATIONS Lovenox, hydromorphone, nicotine patch, Protonix. PHYSICAL EXAM: VITAL SIGNS: Temperature 97.6, pulse 65, respiratory rate 16, blood pressure 105 /64, oxygen saturation 97% on room air GENERAL APPEARANCE: Lying in bed, uncomfortable and anxious appearing. EYES: Pupils equal. Conjunctiva normal. NECK: JVD not raised. Mass not palpable. RESPIRATORY: Respiratory effort normal. Lungs diminished to auscultation. CARDIOVASCULAR: First and second sounds normal. No edema. ABDOMEN: Soft diffuse tenderness Liver and spleen not palpable. . No mass palpable. PSYCHIATRY: Alert and oriented x3. Mood and affect anxious appearing. INVESTIGATIONS: CBC unremarkable, AST 1483, ALTs 2171, alkaline phosphatase 194, total bilirubin 9.0 ASSESSMENT: Acute severe alcoholic hepatitis, slow to respond Hyperbilirubinemia, worsening Acute Alcoholic pancreatitis, unchanged Chronic alcohol dependence Chronic nicotine dependence. Acute on chronic gastritis from alcoholism. PLAN: Liver enzymes remain elevated, GI has cleared patient as long as labs downtrending. Continue current medication and treatment plan. Plan for discharge in a day or 2. We'll continue to follow closely. ACCOUNTS OFFICER statement: Patient was seen and examined by nurse practitioner Tina Goodwin in all elements of the case discussed with attending is Dr. Magallon
[2016-07-26 14:50] LABS: HCV Qualitative Result DETECTED (Not detected)
[2016-07-26] MEDS: traMADol 50 MG TAB PO PRN (20:15)
[2016-07-27] MEDS: traMADol 50 MG TAB PO PRN ×3 (06:20→20:22)
--- NOTE | 2016-07-27 07:25 | PN ---
DATE OF SERVICE: 07/26/2016 ATTENDING NOTE: This patient was seen and examined by me earlier today. I reviewed the note of my nurse practitioner, Ms. Goodwin. Reviewed, discussed and additional findings below. Patient admitted with severe alcoholic hepatitis, pancreatitis, gastritis. Still some pain is better, but oral intake is slowly improving. I spoke to Mara from GI and no further intervention by them and they have actually cleared the patient. Patient did get up to the bathroom. On examination, temperature 98.2, pulse 72, respirations 18, blood pressure 105/60, pulse 97% on room air. GENERAL APPEARANCE: Lying in bed, somewhat uncomfortable. ABDOMEN: Some diffuse tenderness. Anxious-appearing. INVESTIGATIONS: AST 143, ALT 2171. ASSESSMENT: 1. Acute severe alcoholic hepatitis. 2. Hyperbilirubinemia. 3. Acute alcoholic pancreatitis, which is biochemically improved. 4. Chronic gastritis. PLAN: Repeat labs tomorrow. If no worsening, then patient can be discharged tomorrow. Care was discussed with the patient. Will follow.
[2016-07-27 07:58] LABS: Alkaline Phosphatase 231 U/L (38-126); Amylase 75 U/L (30-110); Anion Gap 9 mmol/L; Blood Urea Nitrogen 9 mg/dL (9-20); Calcium 9.5 mg/dL (8.4-10.2); Carbon Dioxide 25 mmol/L (22-30); Chloride 106 mmol/L (98-107); Glucose 84 mg/dL (74-99); Non-African American GFR(MDRD) >60 (>60 ml/min/1.73 sqM); Potassium 4.4 mmol/L (3.5-5.1); Sodium 140 mmol/L (137-145); Total Bilirubin 10.4 mg/dL (0.2-1.3); Total Protein 6.6 g/dL (6.3-8.2)
[2016-07-27] MEDS: NICOTINE 21MG/24HR PATCH TRANSDERM SCH (08:15)
[2016-07-27] MEDS: ENOXAPARIN 40 MG/0.4 ML SYRINGE SQ SCH (08:15)
[2016-07-27] MEDS: PANTOPRAZOLE 40 MG TABLET PO SCH (08:15)
[2016-07-27] MEDS: CALCIUM CARBONATE LIQUID 500 MG/5 ML CUP PO SCH ×3 (08:15→17:14)
--- NOTE | 2016-07-27 08:27 | US ---
EXAMINATION TYPE: US abdomen complete DATE OF EXAM: 07/27/2016 COMPARISON: US 07/23/2016 CLINICAL HISTORY: rule out pseudocyst; pancreatitis per order, acalculus cholecystitis from recent US here; icterus; hypogastric pain and back pain. EXAM MEASUREMENTS: Liver Length: 18.1 cm Gallbladder Wall: 1.3 cm CBD: 0.4 cm Spleen: 13.0 cm Right Kidney: 11.1 x 5.4 x 5.0cm Left Kidney: 11.8 x 5.3 x 6.1cm Pancreas: wnl Liver: small amount of free fluid is noted inferior to liver; liver appears wnl Gallbladder: abnormally thickened and edematous garza and as previously seen by recent US; no stones seen Evidence for sonographic Wright's sign: mild pain CBD: size is wnl; internal echogenicity is hypoechoic compared to normal anechoic CBD appearance Spleen: size is at upper limits of normal Right Kidney: wnl Left Kidney: mid lower pole parallel hyperechoic lines suggests vessel wall calcification Upper IVC: wnl Abd Aorta: wnl as visualized as inferior aorta is gassed out IMPRESSION: 1. Small amount of free fluid noted adjacent to the liver. 2. Gallbladder wall appears thickened and edematous. Does appear to be abnormal echogenicity within t he CBD. Correlate for cholecystitis. Mucosal lesion, sludge or tiny stones within the distal CBD not excluded. CBD measures within normal limits in size and 4 mm.
[2016-07-27 08:43] LABS: ALT 2167 U/L (21-72); AST 1470 U/L (17-59)
[2016-07-27] MEDS ORDERED: LEVOFLOXACIN 500MG-D5W PMX 500 MG in DEXTROSE/WATER 1 100ML.BAG IVPB SCH (21:00)
--- NOTE | 2016-07-27 21:45 | P.PN ---
Progress Note - Text DATE OF SERVICE: 07/27/2016 PRESENTING COMPLAINT: Abdominal pain INTERVAL HISTORY: This a patient who is admitted with severe alcoholic hepatitis, acute pancreatitis, acute gastritis. The patient is lying in bed, still has some abdominal pain, barely tolerating his liquid diet still trying to avoid acidic foods, ambulatory within the room and in the hallway, is anxious appearing. Is complaining of not having enough pain medication on board. REVIEW OF SYSTEMS: Done for constitutional ,cardiovascular, GI, pulmonary with relevant findings as above. CURRENT MEDICATIONS Lovenox, hydromorphone, nicotine patch, Protonix. PHYSICAL EXAM: VITAL SIGNS: Temperature 97.6, pulse 60, respiratory rate 18, blood pressure 117 /73, oxygen saturation 97% on room air. GENERAL APPEARANCE: Lying in bed, uncomfortable and anxious appearing. EYES: Pupils equal. Conjunctiva normal. NECK: JVD not raised. Mass not palpable. RESPIRATORY: Respiratory effort normal. Lungs diminished to auscultation. CARDIOVASCULAR: First and second sounds normal. No edema. ABDOMEN: Soft diffuse tenderness Liver and spleen not palpable. . No mass palpable. PSYCHIATRY: Alert and oriented x3. Mood and affect anxious appearing. INVESTIGATIONS: Total bilirubin 10.4, AST 1470, ALTs 2167, alkaline phosphatase 231. ASSESSMENT: Acute severe alcoholic hepatitis, slow to respond Hyperbilirubinemia, worsening Acute Alcoholic pancreatitis, unchanged Chronic alcohol dependence Chronic nicotine dependence. Chronic gastritis from alcoholism. PLAN: Discussion had with patient regarding pain medication. CERTIFIED ETHICAL HACKER explained how pain medication are processed by the liver and given the current state of his liver adding additional pain medications is not appropriate. Explained that I would have a discussion with Dr. Magallon and Dr. Rocha regarding his concerns. Liver enzymes remain elevated, GI has cleared patient as long as labs downtrending. Continue current medication and treatment plan. Plan for discharge in a day or 2. We'll continue to follow closely. CERTIFIED ETHICAL HACKER statement: Patient was seen and examined by nurse practitioner Tina Goodwin in all elements of the case discussed with attending is Dr. Magallon
--- NOTE | 2016-07-28 00:30 | P.PN ---
Subjective Principal diagnosis: Hepatitis The patient is a 41-year-old male with history of IV drug use was admitted to the hospital because of jaundice and malaise of 2 weeks duration. The patient also has history of alcohol dependency and indicates that he has not used any drugs or alcohol for more than 2 months. The patient had significant elevation in his transaminases as well as jaundice. His hepatitis serology showed positive hepatitis C viral titers Log 6.56 genotype 1a. His bilirubin has increased from 8.5 on admission to 10.4. AST is now at 1470 ALT at 2167 and alkaline phosphatase 231. Patient continues to complain of abdominal pain and keeps asking for more and stronger pain medicines. Objective - Vital Signs Vital signs: Vital Signs Temp 97.6 F 07/27/16 07:00 Pulse 60 07/27/16 07:00 Resp 18 07/27/16 08:00 BP 117/73 07/27/16 07:00 Pulse Ox 97 07/27/16 07:00 Intake & Output 07/26/16 07/27/16 07/27/16 18:59 06:59 18:59 Intake Total 1180 300 Balance 1180 300 Weight 80.467 kg 80.467 kg Intake: IV 700 300 Sodium Chloride 0.9% 1, 700 300 000 ml @ 100 mls/hr IV . Q10H [facility] Rx#:[id number] Oral 480 Other: Voiding Method Toilet Toilet Toilet # Voids 3 1 - Exam General appearance: The patient is alert, oriented, in no acute distress. Visibly jaundiced. HET: Head is normocephalic and atraumatic. Pupils are equal and reactive. Scleral icterus. Oropharynx is clear without lesions. Neck: Supple without lymphadenopathy. Trachea midline. Heart: S1 S2. Regular rate and rhythm. Lungs: No crackles or wheezes are heard. Abdomen: Soft, mild tenderness to the right upper quadrant, nondistended with bowel sounds. No peritoneal signs. No palpable organomegaly or masses. Extremities: Normal skin color and turgor. No cyanosis, rash, ulceration, clubbing, or edema. Radial and pedal pulses are 2/4 bilaterally. Neurological: No focal deficits. Strength and sensation are grossly intact. 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 The other possible etiologies for his liver enzyme abnormalities and worsening bilirubin are not likely with his history of not using drugs or alcohol for more than 2 months and is negative toxicology on admission. The thickening of the wall of the gallbladder and the of cholecystitis cannot account for the degree of elevation in his transaminases and total bilirubin. The EBV viral titer points to a remote infection but no acute infection. An acute viral infection or toxic hepatitis superimposed on chronic liver disease related to alcohol or chronic HCV infection is part of the possibilities as well. Despite his liver enzyme abnormalities and rising bilirubin, he does not seem to be showing additional manifestations of liver failure including coagulopathy or encephalopathy or other alarm symptoms. Agree with your current management, I think it would be appropriate to continue to monitor the situation closely until we have more clarity as to the etiology and the course he is taking. I would discuss with you and follow do with interest.
[2016-07-28] MEDS: traMADol 50 MG TAB PO PRN ×2 (04:49→12:27)
[2016-07-28] MEDS ORDERED: RX INFO: IV CONTRAST WAS GIVEN 1 EACH MISC MISCELLANE PRN (07:04)
[2016-07-28] MEDS: PANTOPRAZOLE 40 MG TABLET PO SCH (07:24)
[2016-07-28] MEDS: NICOTINE 21MG/24HR PATCH TRANSDERM SCH (07:24)
[2016-07-28] MEDS: ENOXAPARIN 40 MG/0.4 ML SYRINGE SQ SCH (07:24)
[2016-07-28 07:44] LABS: Basophils # (A) 0.1 k/uL (0-0.2); Basophils % (A) 2 %; CH 31.5; CHCM 31.7; Eosinophils # (A) 0.3 k/uL (0-0.7); Eosinophils % (A) 5 %; HCT 47.9 % (39.0-53.0); HDW 2.42; HGB 15.5 gm/dL (13.0-17.5); Luc % (Auto) 4; Lymphocytes # (A) 1.8 k/uL (1.0-4.8); Lymphocytes % (A) 32 %; MCH 32.3 pg (25.0-35.0); MCHC 32.3 g/dL (31.0-37.0); MCV 100.1 fL (80.0-100.0); Monocytes # (A) 0.4 k/uL (0-1.0); Monocytes % (A) 8 %; Neutrophils # (A) 2.7 k/uL (1.3-7.7); Neutrophils % (A) 49 %; RBC 4.78 m/uL (4.30-5.90); RDW 13.9 % (11.5-15.5); WBC 5.4 k/uL (3.8-10.6); WBC (Perox) 5.48
[2016-07-28] MEDS: IOHEXOL 350 MG/ML 25 ML BOTTLE (ORAL USE) PO PRN ×2 (07:53→08:36)
[2016-07-28 08:09] LABS: Alkaline Phosphatase 229 U/L (38-126); Anion Gap 11 mmol/L; Blood Urea Nitrogen 11 mg/dL (9-20); Calcium 9.5 mg/dL (8.4-10.2); Carbon Dioxide 26 mmol/L (22-30); Chloride 104 mmol/L (98-107); Glucose 79 mg/dL (74-99); Non-African American GFR(MDRD) >60 (>60 ml/min/1.73 sqM); Potassium 4.6 mmol/L (3.5-5.1); Sodium 141 mmol/L (137-145); Total Bilirubin 9.3 mg/dL (0.2-1.3); Total Protein 6.9 g/dL (6.3-8.2)
[2016-07-28 08:20] LABS: ALT 1910 U/L (21-72); AST 1452 U/L (17-59)
[2016-07-28 08:35] VITALS: TEMP 96.9
[2016-07-28] MEDS: CALCIUM CARBONATE LIQUID 500 MG/5 ML CUP PO SCH ×2 (08:40→12:27)
--- NOTE | 2016-07-28 09:38 | CT ---
EXAMINATION TYPE: CT abdomen pelvis w con DATE OF EXAM: 07/28/2016 COMPARISON: NONE HISTORY: Jaundice, alcoholic hepatitis, abn US CT DLP: 548.7 mGycm Automated exposure control for dose reduction was used. CONTRAST: CT scan of the abdomen pelvis is performed with IV Contrast, patient injected with 100 mL of Omnipaqu e 300. FINDINGS- LUNG BASES-groundglass changes in the lung bases are suggestive of pneumonitis or atelectasis correla te for COPD. LIVER/GB-there appears be evidence of pericholecystic fluid. Correlate for cholecystitis. There is mi ld periportal edema and central intrahepatic biliary prominence. PANCREAS- No gross abnormality is seen. SPLEEN-spleen measures 14 cm and is mildly prominent. ADRENALS- No gross abnormality is seen. KIDNEYS/BLADDER- no hydronephrosis nephrolithiasis or renal mass. BOWEL- no bowel dilatation. Appendix is not seen with certainty. Small duodenal diverticulum suspect ed. LYMPH NODES- No greater than 1cm abdominal or pelvic lymph nodes areappreciated. OSSEOUS STRUCTURES- No significant abnormality is seen. There is variant anatomy of the celiac axis and SMA. Origin of the celiac axis and SMA appear to be c omminuted. Diminutive artery above the level of the celiac axis noted. Small amount of adjacent to ga llbladder. IMPRESSION- 1. Correlate for cholecystitis. 2. Splenomegaly 3. Nonspecific periportal edema correlate for hepatocellular disease. Mild central intrahepatic bilia ry dilation also suspected. 4. Suspected. Anatomy of the celiac axis and SMA suspected common origin. 5. Appendix not identified in nondiagnostic for appendicitis. 6. Air within the subcutaneous tissues may be iatrogenic correlate clinically along the anterior abdo keila wall.
--- NOTE | 2016-07-28 12:03 | PN ---
DATE OF SERVICE: 07/27/2016 ATTENDING NOTE: This patient was seen and examined by me earlier today. I reviewed the note of my nurse practitioner, Ms. Goodwin. Reviewed, discussed with additional findings below. This patient presented with acute severe hepatitis for multiple reasons. Some acute pancreatitis, acute, gastritis. Still having abdominal pain. I spoke to Dr. Rocha today to come and talk to patient. I kept him back since his numbers are not improving. He has still been in pain. Given his liver failure, I have been cautious about his pain medications. ( ) liver failure. Patient's father, mother and ex- are in the room. Obviously concerned about him. On examination, the patient is afebrile. Abdominal tenderness. No guarding or rigidity. PSYCHIATRY: Alert and oriented x3. Patient is actually walked up and down in the hallway. INVESTIGATIONS: Blood work is noted. I had ordered an ultrasound yesterday evening to check for any pancreatic pseudocyst. I had a discussion with the patient and family members. They were concerned if there was anything else going on. I did explain to them to ask GI specialist and that I am following with him. There was concern if there was any other additional etiology present. I did say that I will go ahead and check on the ultrasound and also put in surgical consult. I did look at the ultrasound. Results are noted. There is some gallbladder abnormity stated. Clinically the patient has got no fever, no white count. I discussed with the family earlier. I will get a surgical consultation. I did discuss this with the patient latera again in the evening and also did tell the patient and family if he did not improve and sent for cultures, I may even transfer him to [facility] to see if they have any further input on the matter. Patient's enzymes remain high. Bilirubin is 10.4. Patient's hep C is also positive.
[2016-07-28 15:01] VITALS: BP 111/78; PULSE 86; RESP 18
--- NOTE | 2016-07-28 16:00 | P.PN ---
Progress Note - Text Please see full dictated consult. Patient imaging including computed tomography scan and ultrasound were reviewed. He reports intolerance to fatty foods as his abdominal pain is worsened after eating foods with fat. Separately has a complicated history of acute hepatitis. Recommend immediate transfer to tertiary care center such as [facility] given his complicated hepatitis history. In the meantime, recommend low-fat diet.
--- NOTE | 2016-07-28 20:40 | P.GSCN ---
History of Present Illness Consult date: 07/28/16 Reason for Consult: Cholecystitis Requesting physician: Stephan Magallon History of present illness: The patient is a 41-year-old male who was admitted now 1 week ago with abdominal pain and jaundice. His hospital workup demonstrated acute hepatitis. He has hyperbilirubinemia as a result. Separately, he has personal history of IV drug abuse including alcohol abuse. He had an ultrasound which demonstrated findings consistent with cholecystitis. Given these findings, Gen. surgery is consulted. He reports worsening of his abdominal pain after eating particularly foods with fat. Review of Systems CONSTITUTIONAL: Denies any fever or chills. Has weight loss. HEENT: Denies any trouble with vision, hearing or nosebleeds. No difficulty swallowing. LYMPHATIC: The patient denies any lumps and bumps around the neck. ENDOCRINE: Denies any thyroid disorders. Denies any blood sugar glucose intolerance. RESPIRATORY: Denies pneumonia. Denies any troubles with breathing or dyspnea on exertion. CARDIOVASCULAR: Denies any chest pain, palpitations, or recent heart attacks. GASTROINTESTINAL: Has heart burn. No constipation or bright red blood per rectum. Recent diagnosis of acute hepatitis. GENITOURINARY: Denies any blood in urine or increased urinary frequency. MUSCULOSKELETAL: Has back pain, stiffness, joint arthritis. NEUROLOGIC: Denies any numbness or tingling along the distal extremities. No seizure disorders or headaches. PSYCHIATRIC: Denies depression or suidical ideation. HEMATOLOGIC: Has abnormal bleeding or bruising. Past Medical History Past Medical History: No Reported History Additional Past Medical History / Comment(s): alcohol abuse for years History of Any Multi-Drug Resistant Organisms: None Reported Past Surgical History: No Surgical Hx Reported Past Psychological History: No Psychological Hx Reported Smoking Status: Current every day smoker Past Alcohol Use History: Abuse Past Drug Use History: None Reported - Past Family History Father Family Medical History: Myocardial Infarction ([place]) Mother Additional Family Medical History / Comment(s): MS Medications and Allergies Home Medications Medication Instructions Recorded Confirmed Type Omeprazole Magnesium [Prilosec Otc] 20 mg PO QAM 07/23/16 07/23/16 History Ranitidine HCl [Zantac] 150 mg PO HS 07/23/16 07/23/16 History Allergies Allergy/AdvReac Type Severity Reaction Status Date / Time Penicillins Allergy Anaphylaxis Verified 07/23/16 16:12 Surgical - Exam Vital Signs Temp Pulse Resp BP Pulse Ox 97.8 F 86 20 141/90 98 07/23/16 15:40 07/23/16 15:40 07/23/16 15:40 07/23/16 15:40 07/23/16 15:40 GENERAL: Well developed and in no acute distress. Pleasant. HEENT: No sclera icterus. Extraocular movements grossly intact. Moist buccal mucosa. Head is atraumatic, normocephalic. Hears conversational speech. No nasal drainage. NECK: Supple without lymphadenopathy. No JV distention. CHEST: Non-labored respirations and equal bilateral excursions. CARDIOVASCULAR: Regular rate and rhythm. Palpable 2+ radial pulses. ABDOMEN: Soft, tender along the umbilicus. Minimal tenderness along the right upper quadrant. MUSCULOSKELETAL: No clubbing, cyanosis or edema. NEUROLOGIC: No focal or lateralizing signs. PSYCH: Appropriate affect. Alert and oriented to person, place and time. Results - Labs 07/28/16 06:56 07/28/16 06:56 Abnormal Lab Results - Last 24 Hours (Table) 07/28/16 07/28/16 Range/Units 06:56 06:56 MCV 100.1 H (80.0-100.0) fL Total Bilirubin 9.3 H (0.2-1.3) mg/dL AST 1452 H (17-59) U/L ALT 1910 H (21-72) U/L Alkaline Phosphatase 229 H (38-126) U/L Microbiology - Last 24 Hours (Table) 07/23/16 15:55 Blood Culture - Preliminary Blood No Growth after 96 hours Diabetes panel 07/28/16 Range/Units 06:56 Sodium 141 (137-145) mmol/L Potassium 4.6 (3.5-5.1) mmol/L Chloride 104 (98-107) mmol/L Carbon Dioxide 26 (22-30) mmol/L BUN 11 (9-20) mg/dL Creatinine 0.85 (0.66-1.25) mg/dL Glucose 79 (74-99) mg/dL Calcium 9.5 (8.4-10.2) mg/dL AST 1452 H (17-59) U/L ALT 1910 H (21-72) U/L Alkaline Phosphatase 229 H (38-126) U/L Total Protein 6.9 (6.3-8.2) g/dL Albumin 3.8 (3.5-5.0) g/dL Calcium panel 07/28/16 Range/Units 06:56 Calcium 9.5 (8.4-10.2) mg/dL Albumin 3.8 (3.5-5.0) g/dL Pituitary panel 07/28/16 Range/Units 06:56 Sodium 141 (137-145) mmol/L Potassium 4.6 (3.5-5.1) mmol/L Chloride 104 (98-107) mmol/L Carbon Dioxide 26 (22-30) mmol/L BUN 11 (9-20) mg/dL Creatinine 0.85 (0.66-1.25) mg/dL Glucose 79 (74-99) mg/dL Calcium 9.5 (8.4-10.2) mg/dL Adrenal panel 07/28/16 Range/Units 06:56 Sodium 141 (137-145) mmol/L Potassium 4.6 (3.5-5.1) mmol/L Chloride 104 (98-107) mmol/L Carbon Dioxide 26 (22-30) mmol/L BUN 11 (9-20) mg/dL Creatinine 0.85 (0.66-1.25) mg/dL Glucose 79 (74-99) mg/dL Calcium 9.5 (8.4-10.2) mg/dL Total Bilirubin 9.3 H (0.2-1.3) mg/dL AST 1452 H (17-59) U/L ALT 1910 H (21-72) U/L Alkaline Phosphatase 229 H (38-126) U/L Total Protein 6.9 (6.3-8.2) g/dL Albumin 3.8 (3.5-5.0) g/dL - Imaging CT scan - abdomen: report reviewed, image reviewed CT scan - pelvis: report reviewed, image reviewed (Findings are consistent with fluid along the gallbladder. No free air.) US - abdomen: report reviewed, image reviewed Assessment and Plan (1) Cholecystitis Status: Acute (2) History of alcohol abuse Status: Acute (3) Acute hepatitis Status: Acute (4) Hepatitis C antibody positive in blood Status: Acute (5) Heroin abuse Status: Acute (6) Jaundice Status: Acute (7) Epigastric abdominal pain Status: Acute Plan: 1. His diagnostic studies and clinical exam are consistent with cholecystitis in the background of acute hepatitis with jaundice. 2. I reviewed with him that he is high surgical risk however recommend management with a sports umpire. Transfer to a tertiary care center such as [facility] is advised. 3. On review of his diet, he has been receiving fatty foods which he states is exacerbating his abdominal pain. Recommend low-fat diet. 4. I have reviewed the care plan with the federal java developer and am in agreement with transfer to tertiary care center.
--- NOTE | 2016-07-29 09:54 | DS ---
DATE OF ADMISSION: 07/23/2016 DATE OF DISCHARGE: 07/28/2016 TRANSFER/DISCHARGE SUMMARY FINAL DIAGNOSES: 1. Acute severe hepatitis, probably a combination of alcoholic and hepatitis C. 2. Acute severe alcoholic hepatitis, may be a chronic component. 3. Hyperbilirubinemia. 4. Alcoholic pancreatitis, present on admission. 5. Chronic alcohol dependence. 6. Chronic nicotine dependence. 7. Possible acute on chronic gastritis from alcoholism. 8. Possible acute cholecystitis. CONSULTATIONS: Dr. Rocha from GI and Dr. Cowan from general surgery. HOSPITAL COURSE: This patient presented with increasing abdominal pain with grossly elevated LFTs. Patient's AST was 1465, ALT 2595. Bilirubin was 7.6, did go up to 10.4 then down to 9.3. Amylase and lipase were up, did actually normalize. Patient's CMV IgG antibody was nonreactive. Kaveh-Cody virus capsid Ag IgG antibody was greater than 750 and nuclear antigen IgG antibody was greater than 600. Hepatitis A and IgM was negative. Hepatitis B was negative. Hepatitis C virus RNA quantitative was detected and C RNA was 3.6 million and PCR log was 6.56. Hepatitis C genotype was 1a. A lengthy discussion was had with the patient and family. Also they discussed with Dr. Rocha. This could be cholecystitis in addition to the above and with patient not a good surgical candidate at this point because of the multiple other problems, Dr. Cowan also talked to the patient. She also recommended that the patient be transferred to [facility] in a specialized center. I discussed this with the patient. He is agreeable the same. I spoke to ( ) from [facility]. Patient is being accepted there to the medical service. On examination, upper abdominal tenderness. PSYCH: Alert and oriented x3. Jaundice present. Discharge plan more than 35 minutes. Additionally, in the form of antibiotic, patient was on Levaquin.
== END 2016-07-28 17:40 | disposition short-term general hospital (02) | DRG 432 ==
LOC: EC 15:37 → 5MS5E 18:18
PROVIDERS: ADMIT Hospitalist; ATTEND Hospitalist
DX: K70.10 Alcoholic hepatitis without ascites (principal); K85.20 Alcohol induced acute pancreatitis without necrosis or infection; K72.90 Hepatic failure, unspecified without coma; K81.9 Cholecystitis, unspecified; F11.10 Opioid abuse, uncomplicated; B19.20 Unspecified viral hepatitis C without hepatic coma; F10.20 Alcohol dependence, uncomplicated; F17.210 Nicotine dependence, cigarettes, uncomplicated; K29.20 Alcoholic gastritis without bleeding; Z88.0 Allergy status to penicillin; Z79.899 Other long term (current) drug therapy
CPT/HCPCS: 36415; 74020; 74177; 76700; 76705; 80053; 80074; 80306; 80320; 81003; 82105; 82140; 82150; 83520; 83605; 83690; 83735; 84100; 85025; 85610; 85730; 86644; 86663; 86664; 86665; 87040; 87086; 87522; 87902; 96361; 96374; 96376; 99285

== ENCOUNTER → 2016-09-24 | Outpatient (CLI) | payer OTHER ==
--- NOTE | 2016-09-24 23:53 | MR ---
EXAMINATION TYPE: MR liver wo/w con and mrcp DATE OF EXAM: 09/24/2016 COMPARISON: NONE HISTORY: Epigastic pain Standard multiplanar, multisequence MRI departmental protocol Multiplanar, multisequence images of the abdomen were acquired. Diffusion weighted imaging was perfor med. The contrast was MultiHance 17 mL. FINDINGS: Liver has normal size. There is diffuse hepatic periportal edema. The bile ducts are not di lated. There is no evidence of a pancreatic mass. Pancreas has normal size. Gallbladder appears jorge luis l. There is no evidence of fluid around the gallbladder. There is no discrete liver mass. Spleen is enlarged and measures 14 cm. There is no evidence of an adrenal mass. Kidneys show satisfactory contrast opacification. There is n o hydronephrosis. There is no sign of retroperitoneal adenopathy. There is no sign of pleural effusio n. There is no sign of ascites. The MRCP images show no evidence of dilated bile ducts. Ducts have normal size. Gallbladder appears n ormal. Pancreatic duct appears normal. Intrahepatic bile ducts are not dilated. I see no filling defe ct. There is no evidence of a stricture. IMPRESSION: There is periportal fluid consistent with edema. This is similar to the CT scan of 07/28/2016. The cau se is not evident. This could relate to nonspecific hepatitis in view of the lack of any other signif icant abnormality. There is clearing of the fluid around the gallbladder since the old CT scan. Mild splenomegaly. Normal pancreatic duct and common bile duct. Normal hepatic ducts. No evidence of pancreatitis.
== END | disposition home or self-care (01) ==
LOC: RADMRIMAIN 07:12
PROVIDERS: ATTEND Internal Medicine Gastroenterology
DX: R16.1 Splenomegaly, not elsewhere classified (principal); R10.13 Epigastric pain
CPT/HCPCS: 74183; A9577

== ENCOUNTER 2017-06-14 05:44 | Emergency (ER) | payer BC, OTHER ==
--- NOTE | 2017-06-14 06:08 | ED ---
Overdose HPI - General Source: patient, EMS Mode of arrival: EMS Limitations: no limitations - History of Present Illness MD Complaint: accidental overdose -: minutes(s) How Overdose Was Discovered: family/friend present at time Context: Accidental Overdose: wanted to get high Treatments Prior to Arrival: none <Shawn Bailey - Last Filed: 06/14/17 06:31> <Raffaele Ham - Last Filed: 06/14/17 09:21> - General Chief Complaint: Overdose Stated Complaint: Overdose Time Seen by Provider: 06/14/17 05:49 - History of Present Illness Initial Comments: Patient is a 41 year old man presenting after accidental overdose. Sts that he has heroin affinity and believes he may have taken too much. Sts parents called EMS when he was hard to awaken. Patient denies complaints. (AlejandroShawn laguna) - Related Data Home Medications Medication Instructions Recorded Confirmed Omeprazole Magnesium [Prilosec Otc] 20 mg PO QAM 07/23/16 07/23/16 Ranitidine HCl [Zantac] 150 mg PO HS 07/23/16 07/23/16 Allergies Allergy/AdvReac Type Severity Reaction Status Date / Time Penicillins Allergy Anaphylaxis Verified 07/23/16 16:12 Review of Systems ROS Other: All systems not noted in ROS Statement are negative. Constitutional: Denies: fever, chills Respiratory: Denies: cough, dyspnea Cardiovascular: Denies: chest pain, palpitations, syncope Gastrointestinal: Denies: abdominal pain, nausea, vomiting Musculoskeletal: Denies: back pain Skin: Reports: other (No abscesses). Denies: rash Neurological: Denies: headache, weakness Psychiatric: Denies: depression, suicidal thoughts <Shawn Bailey - Last Filed: 06/14/17 06:31> ROS Other: All systems not noted in ROS Statement are negative. <Raffaele Ham - Last Filed: 06/14/17 09:21> ROS Statement: Those systems with pertinent positive or pertinent negative responses have been documented in the HPI. Past Medical History Past Medical History: No Reported History Additional Past Medical History / Comment(s): alcohol abuse for years History of Any Multi-Drug Resistant Organisms: None Reported Past Surgical History: No Surgical Hx Reported Additional Past Surgical History / Comment(s): ganglion cyst. Past Psychological History: Anxiety, Bipolar, Depression, PTSD Smoking Status: Current every day smoker Past Alcohol Use History: Abuse Past Drug Use History: Heroin - Past Family History Father Family Medical History: Myocardial Infarction ([place]) Mother Additional Family Medical History / Comment(s): <Shawn Bailey - Last Filed: 06/14/17 06:31> General Exam Limitations: no limitations General appearance: alert, in no apparent distress Head exam: Present: atraumatic, normocephalic Eye exam: Present: normal appearance. Absent: scleral icterus, conjunctival injection Respiratory exam: Present: normal lung sounds bilaterally. Absent: respiratory distress, wheezes, rales, rhonchi, stridor Cardiovascular Exam: Present: regular rate, normal rhythm, normal heart sounds. Absent: systolic murmur, diastolic murmur, rubs, gallop GI/Abdominal exam: Present: soft. Absent: distended, tenderness, guarding, rebound Extremities exam: Present: normal inspection, normal capillary refill. Absent: pedal edema, calf tenderness Skin exam: Present: warm, dry, intact, normal color. Absent: rash <LynnShawn - Last Filed: 06/14/17 06:31> Vital Signs 06/14/17 06/14/17 06/14/17 05:45 06:00 06:08 Temperature 98.5 F 98.2 F Pulse Rate 113 H 81 Pulse Rate [ 90 Sensitizer ] Respiratory 18 16 Rate Blood Pressure 139/86 139/86 O2 Sat by Pulse 96 97 Oximetry 06/14/17 06/14/17 06:37 08:49 Temperature Pulse Rate 75 84 Pulse Rate [ Sensitizer ] Respiratory 15 18 Rate Blood Pressure 117/79 119/74 O2 Sat by Pulse 96 98 Oximetry Medical Decision Making - EKG Data -: EKG Interpreted by Me EKG shows normal: sinus rhythm, axis (normal), intervals (normal), QRS complexes (normal), ST-T waves (normal) Rate: normal (95 bpm) <AlejandroShawn laguna - Last Filed: 06/14/17 06:31> <Raffaele Ham - Last Filed: 06/14/17 09:21> - Medical Decision Making I asked the patient if he was suicidal patient stated he was absolutely not suicidal he states he actually enjoys life quite a bit has a son to live for. Patient is awake and oriented. Patient again denies suicide. Patient ate breakfast. Patient will be discharged home. (Raffaele Ham) Disposition <Shawn Bailey - Last Filed: 06/14/17 06:31> Is patient prescribed a controlled substance at d/c from ED?: No Time of Disposition: 09:21 <Raffaele Ham - Last Filed: 06/14/17 09:21> Clinical Impression: Opiate abuse, continuous Disposition: HOME SELF-CARE Condition: Good Instructions: Narcotic Abuse (ED) Referrals: None,Stated [Primary Care Provider] - 1-2 days
[2017-06-14 06:12] VITALS: TEMP 98.2
[2017-06-14] MEDS ORDERED: ONDANSETRON 4 MG/2 ML VIAL IVP STA ×2 (06:54)
[2017-06-14 08:50] VITALS: RESP 18
[2017-06-14 09:28] VITALS: BP 121/79; PULSE 80
== END 2017-06-14 10:11 | disposition home or self-care (01) ==
LOC: EC 05:44
DX: F11.10 Opioid abuse, uncomplicated (principal); F17.200 Nicotine dependence, unspecified, uncomplicated; Z79.899 Other long term (current) drug therapy; Z88.0 Allergy status to penicillin
CPT/HCPCS: 82075; 93005; 99284; 96374; J2405

== ENCOUNTER 2018-04-18 20:12 | Inpatient (IN) | payer OTHER ==
[2018-04-18] MEDS ORDERED: ONDANSETRON 4 MG/2 ML VIAL IVP STA (21:22)
[2018-04-18] MEDS ORDERED: HYDROmorphone 2 MG/ML 1 ML SYRINGE IVP STA (21:22)
[2018-04-18] MEDS ORDERED: RX INFO: IV CONTRAST WAS GIVEN 1 EACH MISC MISCELLANE PRN (21:35)
[2018-04-18 22:10] LABS: Basophils # (A) 0.1 k/uL (0-0.2); Basophils % (A) 0 %; Eosinophils # (A) 0.3 k/uL (0-0.7); Eosinophils % (A) 3 %; HCT 42.5 % (39.0-53.0); HGB 14.6 gm/dL (13.0-17.5); Lymphocytes # (A) 1.5 k/uL (1.0-4.8); Lymphocytes % (A) 15 %; MCH 31.3 pg (25.0-35.0); MCHC 34.4 g/dL (31.0-37.0); MCV 90.9 fL (80.0-100.0); Mean Platelet Volume 6.5; Monocytes # (A) 0.6 k/uL (0-1.0); Monocytes % (A) 6 %; Neutrophils # (A) 7.7 k/uL (1.3-7.7); Neutrophils % (A) 75 %; Platelet Count 246 k/uL (150-450); RBC 4.68 m/uL (4.30-5.90); RDW 12.8 % (11.5-15.5); WBC 10.3 k/uL (3.8-10.6)
[2018-04-18 22:20] LABS: INR 0.9 (<1.2); Partial Thromboplastin Time 27.2 sec (22.0-30.0)
[2018-04-18 22:21] LABS: ALT 34 U/L (21-72); AST 18 U/L (17-59); Albumin 3.9 g/dL (3.5-5.0); Alkaline Phosphatase 78 U/L (38-126); Amylase 59 U/L (30-110); Anion Gap 10 mmol/L; Blood Urea Nitrogen 15 mg/dL (9-20); Calcium 9.3 mg/dL (8.4-10.2); Carbon Dioxide 22 mmol/L (22-30); Chloride 103 mmol/L (98-107); Glucose 100 mg/dL (74-99); Lipase 78 U/L (23-300); Potassium 4.3 mmol/L (3.5-5.1); Sodium 135 mmol/L (137-145); Total Bilirubin 0.6 mg/dL (0.2-1.3); Total Protein 7.6 g/dL (6.3-8.2)
[2018-04-18] MEDS ORDERED: IBUPROFEN 600 MG TAB PO STA (23:20)
--- NOTE | 2018-04-18 23:24 | ED ---
Abdominal Pain HPI - General Source: patient Mode of arrival: ambulatory Limitations: no limitations <Laure Hawthorne - Last Filed: 04/18/18 23:21> <Miles Espino - Last Filed: 04/19/18 05:11> - General Chief Complaint: Abdominal Pain Stated Complaint: Abd pain Time Seen by Provider: 04/18/18 21:02 - History of Present Illness Initial Comments: 42-year-old male patient presents to the emergency department today for evaluation of left arm pain, redness, swelling, and abdominal pain. Patient states that he does have a history of IV drug use, states he was clean for one year and then used injectable drugs the other day. Patient states her last 2-3 days he has been having increasing, swelling, and tenderness over the left antecubital region. States today the swelling became worse and started to exten d down to his wrist. Patient denies any numbness or tingling to the arm. States he has felt feverish and chilled. Patient states that over the last 2-3 days he has had increase in abdominal pain. States the pain is severe. States he's had multiple episodes of vomiting. Denies any constipation or diarrhea. Denies any hematochezia, melena, or hematemesis. Patient denies any recent rash, shortness breath, chest pain, back pain, numbness, tingling, dizziness, weakness, hematuria, dysuria, urinary urgency, urinary frequency, headache, visual changes, or any other complaints. (Laure Hawthorne) - Related Data Home Medications Medication Instructions Recorded Confirmed No Known Home Medications 04/18/18 04/18/18 Allergies Allergy/AdvReac Type Severity Reaction Status Date / Time Penicillins Allergy Anaphylaxis Verified 04/18/18 21:22 Review of Systems ROS Other: All systems not noted in ROS Statement are negative. <Laure Hawthorne - Last Filed: 04/18/18 23:21> ROS Other: All systems not noted in ROS Statement are negative. <Miles Espino - Last Filed: 04/19/18 05:11> ROS Statement: Those systems with pertinent positive or pertinent negative responses have been documented in the HPI. Past Medical History Past Medical History: No Reported History Additional Past Medical History / Comment(s): alcohol abuse for years, hep c History of Any Multi-Drug Resistant Organisms: None Reported Past Surgical History: No Surgical Hx Reported Additional Past Surgical History / Comment(s): ganglion cyst. Past Psychological History: Anxiety, Bipolar, Depression, PTSD Smoking Status: Current every day smoker Past Alcohol Use History: Abuse Past Drug Use History: Heroin - Past Family History Father Family Medical History: Myocardial Infarction ([place]) Mother Additional Family Medical History / Comment(s): MS <Laure Hawthorne M - Last Filed: 04/18/18 23:21> General Exam Limitations: no limitations General appearance: alert, in no apparent distress, other (This is a well- developed, thin appearing adult male patient in mild distress related to pain. Vital signs upon presentation are temperature 99.7F oral, pulse 124, respirations 22, blood pressure 157/88, pulse ox 100% on room air.) Eye exam: Present: normal appearance, PERRL, EOMI. Absent: scleral icterus, conjunctival injection, periorbital swelling Respiratory exam: Present: normal lung sounds bilaterally. Absent: respiratory distress, wheezes, rales, rhonchi, stridor Cardiovascular Exam: Present: normal rhythm, tachycardia, normal heart sounds. Absent: systolic murmur, diastolic murmur, rubs, gallop, clicks GI/Abdominal exam: Present: soft, tenderness (Generalized abdominal tenderness), guarding, normal bowel sounds. Absent: distended, rebound, rigid Neurological exam: Present: alert, oriented X3, CN II-XII intact Psychiatric exam: Present: normal affect, normal mood Skin exam: Present: warm, dry, intact, normal color. Absent: rash <Laure Hawthorne M - Last Filed: 04/18/18 23:21> Course Vital Signs 04/18/18 04/18/18 04/19/18 20:42 23:41 00:06 Temperature 99.7 F H 99.7 F H Pulse Rate 124 H 61 109 H Respiratory 22 18 18 Rate Blood Pressure 157/88 146/99 138/91 O2 Sat by Pulse 100 100 98 Oximetry 04/19/18 04/19/18 01:50 04:02 Temperature 98.4 F Pulse Rate 70 79 Respiratory 17 16 Rate Blood Pressure 125/81 118/89 O2 Sat by Pulse 96 99 Oximetry Medical Decision Making - Lab Data Result diagrams: 04/18/18 21:55 04/18/18 21:55 <Laure Hawthorne M - Last Filed: 04/18/18 23:21> - Lab Data Result diagrams: 04/18/18 21:55 04/18/18 21:55 <Miles Espino - Last Filed: 04/19/18 05:11> - Medical Decision Making Patient has had to me by previous shift physician assistant in nursing Laure Hawthorne. He flew, patient was here for left upper extremity pain. He is an IV drug abuser. He had extensive workup including CT abdomen and pelvis and CT of the arm. Labs otherwise. Fairly benign. Ultrasound bedside was performed by myself showing large abscess. Abscess was drained after needle aspiration. Lidocaine with epi was used. Wound was packed with 1% iodoform packing and patient tolerated the procedure well. Patient was in a lot of pain after the procedure and given degree of cellulitis and also that patient does not have primary care physician will have patient admitted for IV antibiotics and wound monitoring. Patient understandable and agreeable with disposition. (Miles Espino) - Lab Data Lab Results 04/18/18 04/18/18 04/18/18 Range/Units 21:55 21:55 21:55 WBC 10.3 (3.8-10.6) k/uL RBC 4.68 (4.30-5.90) m/uL Hgb 14.6 (13.0-17.5) gm/dL Hct 42.5 (39.0-53.0) % MCV 90.9 (80.0-100.0) fL MCH 31.3 (25.0-35.0) pg MCHC 34.4 (31.0-37.0) g/dL RDW 12.8 (11.5-15.5) % Plt Count 246 (150-450) k/uL Neutrophils % 75 % Lymphocytes % 15 % Monocytes % 6 % Eosinophils % 3 % Basophils % 0 % Neutrophils # 7.7 (1.3-7.7) k/uL Lymphocytes # 1.5 (1.0-4.8) k/uL Monocytes # 0.6 (0-1.0) k/uL Eosinophils # 0.3 (0-0.7) k/uL Basophils # 0.1 (0-0.2) k/uL PT (9.0-12.0) sec INR (<1.2) APTT (22.0-30.0) sec Sodium 135 L (137-145) mmol/L Potassium 4.3 (3.5-5.1) mmol/L Chloride 103 (98-107) mmol/L Carbon Dioxide 22 (22-30) mmol/L Anion Gap 10 mmol/L BUN 15 (9-20) mg/dL Creatinine 0.74 (0.66-1.25) mg/dL Est GFR (CKD-EPI)AfAm >90 (>60 ml/min/1.73 sqM) Est GFR (CKD-EPI)NonAf >90 (>60 ml/min/1.73 sqM) Glucose 100 H (74-99) mg/dL Plasma Lactic Acid Nelson 1.4 (0.7-2.0) mmol/L Calcium 9.3 (8.4-10.2) mg/dL Total Bilirubin 0.6 (0.2-1.3) mg/dL AST 18 (17-59) U/L ALT 34 (21-72) U/L Alkaline Phosphatase 78 (38-126) U/L Total Protein 7.6 (6.3-8.2) g/dL Albumin 3.9 (3.5-5.0) g/dL Amylase 59 (30-110) U/L Lipase 78 (23-300) U/L Urine Color Urine Appearance (Clear) Urine pH (5.0-8.0) Ur Specific Swan (1.001-1.035) Urine Protein (Negative) Urine Glucose (UA) (Negative) Urine Ketones (Negative) Urine Blood (Negative) Urine Nitrite (Negative) Urine Bilirubin (Negative) Urine Urobilinogen (<2.0) mg/dL Ur Leukocyte Esterase (Negative) 04/18/18 04/19/18 Range/Units 21:55 00:25 WBC (3.8-10.6) k/uL RBC (4.30-5.90) m/uL Hgb (13.0-17.5) gm/dL Hct (39.0-53.0) % MCV (80.0-100.0) fL MCH (25.0-35.0) pg MCHC (31.0-37.0) g/dL RDW (11.5-15.5) % Plt Count (150-450) k/uL Neutrophils % % Lymphocytes % % Monocytes % % Eosinophils % % Basophils % % Neutrophils # (1.3-7.7) k/uL Lymphocytes # (1.0-4.8) k/uL Monocytes # (0-1.0) k/uL Eosinophils # (0-0.7) k/uL Basophils # (0-0.2) k/uL PT 10.0 (9.0-12.0) sec INR 0.9 (<1.2) APTT 27.2 (22.0-30.0) sec Sodium (137-145) mmol/L Potassium (3.5-5.1) mmol/L Chloride (98-107) mmol/L Carbon Dioxide (22-30) mmol/L Anion Gap mmol/L BUN (9-20) mg/dL Creatinine (0.66-1.25) mg/dL Est GFR (CKD-EPI)AfAm (>60 ml/min/1.73 sqM) Est GFR (CKD-EPI)NonAf (>60 ml/min/1.73 sqM) Glucose (74-99) mg/dL Plasma Lactic Acid Nelson (0.7-2.0) mmol/L Calcium (8.4-10.2) mg/dL Total Bilirubin (0.2-1.3) mg/dL AST (17-59) U/L ALT (21-72) U/L Alkaline Phosphatase (38-126) U/L Total Protein (6.3-8.2) g/dL Albumin (3.5-5.0) g/dL Amylase (30-110) U/L Lipase (23-300) U/L Urine Color Yellow Urine Appearance Clear (Clear) Urine pH 7.5 (5.0-8.0) Ur Specific Swan 1.027 (1.001-1.035) Urine Protein Negative (Negative) Urine Glucose (UA) Negative (Negative) Urine Ketones Negative (Negative) Urine Blood Negative (Negative) Urine Nitrite Negative (Negative) Urine Bilirubin Negative (Negative) Urine Urobilinogen 2.0 (<2.0) mg/dL Ur Leukocyte Esterase Negative (Negative) Disposition <Laure Hawthorne - Last Filed: 04/18/18 23:21> Decision Time: 05:11 <Miles Espino - Last Filed: 04/19/18 05:11> Clinical Impression: Cellulitis Disposition: ADMITTED IP TO THIS HOSP Condition: Fair Referrals: None,Stated [Primary Care Provider] - 1-2 days
--- NOTE | 2018-04-19 00:09 | CT ---
EXAM: CT Abdomen and Pelvis With Intravenous Contrast CLINICAL HISTORY: ITS.REASON CT Reason: Pain TECHNIQUE: Axial computed tomography images of the abdomen and pelvis with intravenous contrast. CTDI is 9.1+9.6 mGy and DLP is 949.9 mGy-cm. This CT exam was performed using one or more of the following dose reduction techniques: automated exposure control, adjustment of the mA and/or kV according to patient size, and/or use of iterative reconstruction technique. COMPARISON: CT dated 07/28/2016. FINDINGS: Lung bases: Unremarkable. No mass. No consolidation. ABDOMEN: Liver: Subtle periportal edema is nonspecific but can be seen in hepatitis and overhydration among other etiologies. Gallbladder and bile ducts: Unremarkable. No calcified stones. No ductal dilation. Pancreas: Unremarkable. No evidence of mass. No ductal dilation. Spleen: Unremarkable. No splenomegaly. Adrenals: Unremarkable. No mass. Kidneys and ureters: Unremarkable. No solid mass. No hydronephrosis. Stomach and bowel: Unremarkable. No obstruction. No mucosal thickening. PELVIS: Appendix: The appendix is again not identified with certainty. Bladder: Unremarkable. No evidence of mass. Reproductive: Unremarkable as visualized. ABDOMEN and PELVIS: Intraperitoneal space: Unremarkable. No free air. No significant fluid collection. Bones/joints: No acute fracture. Soft tissues: Unremarkable. Vasculature: Unremarkable. No abdominal aortic aneurysm. Lymph nodes: Unremarkable. No enlarged lymph nodes. IMPRESSION: 1. Subtle periportal edema is nonspecific but can be seen in hepatitis and overhydration among other etiologies. 2. The appendix is again not identified with certainty. Evaluation is limited without oral contrast.
[2018-04-19 00:35] LABS: Appearance,Urine Clear (Clear); Bilirubin,Urine Negative (Negative); Blood,Urine Negative (Negative); Color,Urine Yellow; Glucose,Urine (UA) Negative (Negative); Ketones,Urine Negative (Negative); Leukocyte Esterase,Urine Negative (Negative); Nitrite,Urine Negative (Negative); PH, Urine 7.5 (5.0-8.0); Protein,Urine Negative (Negative); Specific Gravity,Urine 1.027 (1.001-1.035)
--- NOTE | 2018-04-19 03:04 | CT ---
EXAM: CT Left Upper Extremity Without Intravenous Contrast CLINICAL HISTORY: ITS.REASON CT Reason: Pain TECHNIQUE: Axial computed tomography images of the left upper extremity without intravenous contrast. CTDI is 15.4 mGy and DLP is 1088.2 mGy-cm. This CT exam was performed using one or more of the following dose reduction techniques: automated exposure control, adjustment of the mA and/or kV according to patient size, and/or use of iterative reconstruction technique. COMPARISON: No relevant prior studies available. FINDINGS: Limitations: Interpretation of this CT of the entire left arm is limited without more detailed history. Bones/joints: There is a punctate age-indeterminate nondisplaced fracture of the coronoid process. Soft tissues: Diffuse soft tissue edema. IMPRESSION: 1. Interpretation of this CT of the entire left arm is limited without more detailed history. 2. There is a punctate age-indeterminate nondisplaced fracture of the coronoid process. 3. Diffuse soft tissue edema. This may represent edema or cellulitis. It is otherwise not well characterized without contrast.
[2018-04-19] MEDS ORDERED: VANCOMYCIN IV PER PHARMACY 1 EACH MISC MISCELLANE PRN ×2 (04:23→08:18)
[2018-04-19] MEDS ORDERED: LIDOCAINE 1%-EPI 1:100,000 20 ML VIAL SQ STA (04:33)
[2018-04-19] MEDS ORDERED: MORPHINE SULFATE 4 MG/ML SYRINGE IVP STA (04:56)
[2018-04-19] MEDS ORDERED: VANCOMYCIN 1,500 MG in SODIUM CHLORIDE 0.9% 250 ML IVPB ONE (05:00)
[2018-04-19] MEDS ORDERED: NALOXONE 0.4 MG/ML 1 ML VIAL IV PRN (05:07)
[2018-04-19] MEDS ORDERED: MORPHINE SULFATE 4 MG/ML SYRINGE IV PRN (05:07)
[2018-04-19 06:35] VITALS: BMI 23.0
[2018-04-19] MEDS: SODIUM CHLORIDE 0.9% 1,000 ML IV SCH (08:12)
--- NOTE | 2018-04-19 08:34 | P.HPIM ---
History of Present Illness H&P Date: 04/19/18 Chief Complaint: Left forearm swelling and pain 42-year-old male with history of IV drug abuse. Patient presented to the hospital due to progressive worsening of swelling and erythema over his left forearm. Patient admits to using IV drug her when for the past 3 years he was clean for 1 year during that time however he relapsed 3 months ago is using IV heroin at least 3 times daily. Patient reports that 4 days ago he noticed some swelling and redness that progressively got worse he didn't try anything at home he hoped that it will clear but he realizes that could be infected sites decided to come the hospital today for evaluation he denies any fevers or chills at home but he does report significant swelling in the left forearm when compared to the other arm he denies any numbness or tingling in his left hand. He denies any similar symptoms in the past. He de nies any history of endocarditis. He denies any chest pain or trouble breathing at this time. In the ED I&D was done to the abscess collection over his left forearm however patient was admitted due to concerns regarding compliance with outpatient by mouth antibiotics due to his addiction and IV drugs. However patient at this time declined evaluation for drug rehab [facility] placement due to concerns about losing his job. Patient also reported occasional abdominal cramps for which CAT scan of the belly was done in the ED showed nonspecific portal edema otherwise unremarkable. Patient labs were unremarkable. I will check alpha-fetoprotein. Otherwise patient denies any changes in his bowel habits any melena or bloody bowel movements. Patient seen on the medical floor seems to be in pain whenever he moves his left forearm I explained to the patient that I will avoid IV opiates and will rely on by mouth opiates and IV NSAIDs he voiced understanding and agreement. Review of Systems Pertinent positives as noted in HPI. All other systems were reviewed and are negative Past Medical History Past Medical History: No Reported History Additional Past Medical History / Comment(s): alcohol abuse for years, hep c History of Any Multi-Drug Resistant Organisms: None Reported Past Surgical History: No Surgical Hx Reported Additional Past Surgical History / Comment(s): ganglion cyst. Past Anesthesia/Blood Transfusion Reactions: No Reported Reaction Past Psychological History: Anxiety, Bipolar, Depression, PTSD Smoking Status: Current every day smoker Past Alcohol Use History: Abuse Past Drug Use History: Heroin - Past Family History Father Family Medical History: Myocardial Infarction ([place]) Mother Additional Family Medical History / Comment(s): MS Medications and Allergies Home Medications Medication Instructions Recorded Confirmed Type No Known Home Medications 04/18/18 04/18/18 History Allergies Allergy/AdvReac Type Severity Reaction Status Date / Time Penicillins Allergy Anaphylaxis Verified 04/18/18 21:22 Physical Exam Vitals: Vital Signs Temp Pulse Resp BP Pulse Ox 04/19/18 06:13 98.6 F 81 17 138/84 98 04/19/18 05:09 98.7 F 81 18 140/102 98 04/19/18 04:02 98.4 F 79 16 118/89 99 04/19/18 01:50 70 17 125/81 96 04/19/18 00:06 109 H 18 138/91 98 04/18/18 23:41 99.7 F H 61 18 146/99 100 04/18/18 20:42 99.7 F H 124 H 22 157/88 100 Intake and Output 04/18/18 04/19/18 04/19/18 21:59 06:59 14:59 Other: Weight Constitutional: Patient looks in pain whenever he moves his left upper extremity otherwise, conversant, pleasant, well-nourished Eyes: Anicteric sclerae, moist conjunctiva, no lid-lag Pupils equal round reactive to light ENMT: NC/AT Oropharynx clear, no erythema, or exudates Neck: Supple, FROM, no masses, or JVD No carotid bruits No thyromegaly Lungs: Clear to auscultation Clear to percussion Normal respiratory effort, no accessory muscle use Cardiovascular: Heart regular in rate and rhythm, No murmurs, gallops, or rubs No peripheral edema Abdominal: Soft Nontender, no guarding, rebound or rigidity Abdomen moving with respiration Normoactive bowel sounds No hepatomegaly, No splenomegaly No palpable mass No abdominal wall hernia noted Skin: Surgical dressing looks dry and intact over the proximal ventral aspect of the left forearm which is tender to palpation with surrounding erythema and induration was marked using a pen to marked the edges to assess for progression, warm to the touch Otherwise skin is unremarkable Extremities: No digital cyanosis No clubbing Pedal pulses intact and symmetrical Radial pulses intact and symmetrical No calf tenderness Psychiatric: Alert and oriented to person, place and time Appropriate affect fair judgment Neuro Muscles Strength 5/5 in all 4 extremities except for limited exam over his left upper extremity due to pain Sensation to light touch grossly present throughout Cranial nerves II-XII grossly intact No focal sensory deficits Lymphatics: no palpable cervical or supraclavicular , or inguinal lymph nodes Results CBC & Chem 7: 04/18/18 21:55 04/18/18 21:55 Labs: Abnormal Lab Results - Last 24 Hours (Table) 04/18/18 Range/Units 21:55 Sodium 135 L (137-145) mmol/L Glucose 100 H (74-99) mg/dL Thrombosis Risk Factor Assmnt - Choose All That Apply Any of the Below Risk Factors Present?: Yes Each Factor Represents 1 point: Age 41-60 years Other Risk Factors: No Other congenital or acquired thrombophilia - If yes, enter type in comment: No Thrombosis Risk Factor Assessment Total Risk Factor Score: 1 Thrombosis Risk Factor Assessment Level: Low Risk Assessment and Plan Assessment: 42 -year-old male with no significant past medical history except for IV drug abuse admitted under observation with anticipated length of stay less than 48 hours for forearm cellulitis and abscess status post I&D to receive IV antibiotics , Patient is an IV drug abuser and concerns were for compliance with by mouth antibiotics if the patient to be discharged from the ER. Will be monitor for less than 48 hours and follow-up on his blood cultures to rule out any bacteremia. Patient will be initiated on IV vancomycin. pain control with PO opiates and IV NSAIDs. Patient declined evaluation for possible placement a t drug abuse rehab [facility] due to concerns regarding losing his job Plan: Cellulitis and abscess of left forearm due to IV drug abuse IV drug abuse with heroin Patient status I&D in the ED Pain control with by mouth opiates (we'll try to avoid IV opiates) and IV Toradol Follow-up cultures IV vancomycin dosed by pharmacy Elevation of the left forearm IV drug abuse with heroin Patient counseled regarding drug abuse Patient refused placement at rehab at this time due to concerns regarding losing his job Consultation for addiction medicine Avoid IV opiates Smoking Counseled to quit smoking Nicotine replacement therapy offered History of hepatitis C Check AFP Patient reported occasional abdominal pains, computed tomography scan of the abdomen was unremarkable showed nonspecific portal edema Surrogate decision-maker: Patient mother CODE STATUS: Full code Discussed with: Patient, ER, RN Anticipated discharge: <[address]: Home A total of 60 minutes was spent on the care of this complex patient more than 50% of the time was spent in counseling and care coordination.
[2018-04-19] MEDS: KETOROLAC 30 MG/ML 1 ML VIAL IVP SCH ×3 (11:49→20:37)
[2018-04-19] MEDS: NICOTINE 21MG/24HR PATCH TRANSDERM SCH (11:50)
[2018-04-19] MEDS: HYDROcodone/APAP 7.5-325MG 1 EACH TAB PO PRN ×3 (11:50→23:18)
[2018-04-19] MEDS: VANCOMYCIN 1,250 MG in SODIUM CHLORIDE 0.9% 250 ML IVPB SCH ×2 (12:38→20:37)
[2018-04-19] MEDS: HEPARIN SODIUM,PORCINE 5,000 UNIT/ML 1 ML VIAL SQ SCH ×2 (17:14→23:18)
[2018-04-20] MEDS ORDERED: MORPHINE SULFATE 4 MG/ML SYRINGE IVP STA ×2 (00:07→11:02)
[2018-04-20 00:38] VITALS: RESP 16
[2018-04-20] MEDS: KETOROLAC 30 MG/ML 1 ML VIAL IVP SCH ×3 (02:42→15:53)
[2018-04-20] MEDS: VANCOMYCIN 1,250 MG in SODIUM CHLORIDE 0.9% 250 ML IVPB SCH ×2 (05:31→13:49)
[2018-04-20] MEDS: HYDROcodone/APAP 7.5-325MG 1 EACH TAB PO PRN ×3 (05:31→17:34)
[2018-04-20] MEDS: HEPARIN SODIUM,PORCINE 5,000 UNIT/ML 1 ML VIAL SQ SCH ×2 (07:05→15:23)
[2018-04-20] MEDS: SODIUM CHLORIDE 0.9% 1,000 ML IV SCH (07:10)
[2018-04-20] MEDS: NICOTINE 21MG/24HR PATCH TRANSDERM SCH (07:10)
[2018-04-20 07:54] LABS: Basophils % (A) 0 %; Eosinophils # (A) 0.1 k/uL (0-0.7); Eosinophils % (A) 1 %; HCT 42.3 % (39.0-53.0); HGB 13.9 gm/dL (13.0-17.5); Lymphocytes # (A) 1.3 k/uL (1.0-4.8); Lymphocytes % (A) 13 %; MCH 30.6 pg (25.0-35.0); MCHC 32.8 g/dL (31.0-37.0); MCV 93.2 fL (80.0-100.0); Mean Platelet Volume 6.5; Monocytes # (A) 0.5 k/uL (0-1.0); Monocytes % (A) 5 %; Neutrophils # (A) 7.9 k/uL (1.3-7.7); Neutrophils % (A) 79 %; Platelet Count 245 k/uL (150-450); RBC 4.54 m/uL (4.30-5.90); RDW 12.7 % (11.5-15.5)
[2018-04-20 08:09] LABS: ALT 30 U/L (21-72); AST 16 U/L (17-59); Albumin 3.1 g/dL (3.5-5.0); Alkaline Phosphatase 62 U/L (38-126); Anion Gap 7 mmol/L; Blood Urea Nitrogen 15 mg/dL (9-20); Calcium 8.8 mg/dL (8.4-10.2); Carbon Dioxide 21 mmol/L (22-30); Chloride 110 mmol/L (98-107); Glucose 92 mg/dL (74-99); Potassium 4.5 mmol/L (3.5-5.1); Sodium 138 mmol/L (137-145); Total Bilirubin 0.7 mg/dL (0.2-1.3); Total Protein 6.6 g/dL (6.3-8.2)
--- NOTE | 2018-04-20 11:25 | P.PN ---
Subjective Progress Note Date: 04/20/18 Principal diagnosis: left arm pain Patient is a 42-year-old male with a past medical history of hepatitis C, tobacco abuse and IV drug use who presented to the ER with complaints of left forearm pain. He had been injecting heroin into that area. In the ER he underwent an extensive evaluation. On arrival he had a mild elevated heart rate at 124. Laboratory analysis was within normal limits. In the ER he underwent I&D of the left forearm abscess with placement of iodoform gauze. Left forearm CT showed diffuse soft tissue edema representing edema or cellulitis. CT of abdomen and pelvis showed periportal edema. There was concern that he'll be noncompliant with oral medication that he has increasing risk for sepsis and bacteremia secondary to his IV drug use. He was subsequently admitted for further monitoring. Dressing removed on the morning of 04/20 with removal of packing. He still has a significant amount of purulent drainage. Patient seen and examined at bedside. He complains of increasing pain in his left arm that feels like a tightness. He denies any significant withdrawal symptoms including nausea, vomiting, tremulousness, or diaphoresis. 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 He has no other complaints currently. Objective - Vital Signs Vital signs: Vital Signs Temp 98.2 F 04/20/18 07:00 Pulse 82 04/20/18 07:00 Resp 16 04/20/18 07:00 BP 154/90 04/20/18 07:00 Pulse Ox 100 04/20/18 07:00 Intake & Output 04/19/18 04/20/18 04/20/18 18:59 06:59 18:59 Intake Total 200 2200 Balance 200 2200 Intake: Intake, IV Titration 1100 Amount Sodium Chloride 0.9% 1, 600 000 ml @ 100 mls/hr IV . Q10H [facility] Rx#:[id number] Vancomycin 1,250 mg In 500 Sodium Chloride 0.9% 250 ml @ 125 mls/hr IVPB Q8H [facility] Rx#:[id number] Oral 200 1100 Other: Voiding Method Toilet # Voids 1 2 - Exam General: non toxic, no distress, appears at stated age Derm: left arm with edema, erythema and warmt around incision site, still large amount of purulen drainage expressed approximately 50 CC. warm, dry Head: atraumatic, normocephalic, symmetric Eyes: EOMI, no lid lag, anicteric sclera Mouth: no lip lesion, mucus membranes moist Cardiovascular: S1S2 reg, no murmur, positive posterior tibial pulse bilateral, Lungs: CTA bilateral, no rhonchi, no rales , no accessory muscle use Abdominal: soft, nontender to palpation, no guarding, no appreciable organomegaly Ext: no gross muscle atrophy, no edema, no contractures Neuro: CN II-XI grossly intact, no focal neuro deficits Psych: Alert, oriented, appropriate affect - Labs CBC & Chem 7: 04/20/18 06:48 04/20/18 06:48 Labs: Abnormal Lab Results - Last 24 Hours (Table) 04/20/18 04/20/18 Range/Units 06:48 06:48 Neutrophils # 7.9 H (1.3-7.7) k/uL Chloride 110 H (98-107) mmol/L Carbon Dioxide 21 L (22-30) mmol/L AST 16 L (17-59) U/L Albumin 3.1 L (3.5-5.0) g/dL Microbiology - Last 24 Hours (Table) 04/18/18 21:55 Blood Culture - Preliminary Blood No Growth after 24 hours 04/19/18 00:25 Urine Culture - Preliminary Urine,Voided Assessment and Plan Assessment: Abscess and cellulitis of the left upper extremity -Continue with iodoform packing -Nonocclusive dressing -Continue with vancomycin another 24 hours and anticipate discharge in a.m. on Bactrim -At high risk for readmission if discharged early secondary to likely noncompliance with oral medication row due to IV drug use. Risk include sepsis, bactermia and IV drug use -Intends on quitting when he goes home but already talking about snorting if he has withdrawal symptoms -Social work consult Tobacco abuse -Cessation -Nicotine replacement Social stressors -Has no PCP but has active insurance. We'll work on setting him up a follow-up appointment prior to discharge. DVT prophylaxis:early ambulation Discussed with: patient, nursing Anticipated discharge: [address]: home A total of 25 minutes was spent on the care of this complex patient more than 50% of the time was spent in counseling and care coordination.
[2018-04-20] MEDS ORDERED: VANCOMYCIN TROUGH DUE 1 EACH MISC MISCELLANE ONE (12:00)
[2018-04-20 16:30] VITALS: BP 139/88; PULSE 92; TEMP 97.5
--- NOTE | 2018-04-20 19:30 | P.DS ---
Providers Date of admission: 04/19/18 05:11 Expected date of discharge: 04/20/18 Attending physician: Fiona Patiño MD Primary care physician: Stated None Hospital Course: Discharge Diagnosis: Abscess and cellulitis of the left upper extremity IV drug use Tobacco abuse Hospital Course: Patient is a 42-year-old male with a past medical history of hepatitis C, tobacco abuse and IV drug use who presented to the ER with complaints of left forearm pain. He had been injecting heroin into that area. In the ER he underwent an extensive evaluation. On arrival he had a mild elevated heart rate at 124. Laboratory analysis was within normal limits. In the ER he underwent I&D of the left forearm abscess with placement of iodoform gauze. Left forearm CT showed diffuse soft tissue edema representing edema or cellulitis. CT of abdomen and pelvis showed periportal edema. There was concern that he'll be noncompliant with oral medication that he has increasing risk for sepsis and bacteremia secondary to his IV drug use. He was subsequently admitted for further monitoring. Dressing removed on the morning of 04/20 with removal of packing. He still has a significant amount of purulent drainage and it was repacked. The erythema and redness around the site had significantly decreased. He was checked on again in the even and redness and edema improved even further, incision was still draining. Patient requesting discharge as he was feeling better. He was determined stable for discharge. He will remove the packing on the morning of 04/21. He will keep the wound covered. He will go to urgent care for in 2-4 days for a recheck. He was provided an rx for motrin 800mg for pain and bactrim for 5 more days. He was also given an Rx for pepcid. He was given information on narcotic rehabs. Patient seen and examined at bedside.improvement in swelling and redness. Vital signs reviewed and stable. General: non toxic, no distress, appears at stated age Derm: redness and warmth on the left arm, with purulent drainage out of prior I and D site improving. Not warm, dry A total of 40 minutes of time were spent preparing this complex discharge summary . Pertinent Studies: CT left for arm cellulitis CT and and pelvis with periportal hepatitis Patient Condition at Discharge: Fair Plan - Discharge Summary Discharge Rx Participant: Yes New Discharge Prescriptions: New Sulfamethox-Tmp 800-160Mg [Bactrim DS 800-160 mg] 1 tab PO Q12HR #10 tab Ibuprofen [Motrin] 800 mg PO Q8H PRN #20 tab PRN Reason: Pain Famotidine [Pepcid] 20 mg PO DAILY #10 tablet Discharge Medication List Famotidine [Pepcid] 20 mg PO DAILY #10 tablet 04/20/18 [Rx] Ibuprofen [Motrin] 800 mg PO Q8H PRN #20 tab 04/20/18 [Rx] Sulfamethox-Tmp 800-160Mg [Bactrim DS 800-160 mg] 1 tab PO Q12HR #10 tab 04/20/18 [Rx] Follow up Appointment(s)/Referral(s): None,Stated [Primary Care Provider] - 1-2 days Activity/Diet/Wound Care/Special Instructions: regular diet activity as tolerated Remove packing on the morning of 04/21. Keep wound covered with 4 by 4 and when working cover with saran wrap Follow-up with a physician in the next 2-4 days for a recheck on your wound an infection Abstain from illicit drugs
== END 2018-04-20 20:15 | disposition home or self-care (01) | DRG 603 ==
LOC: EC 20:12 → 4SSUR 04-19 05:11
PROVIDERS: ADMIT Internal Medicine; ATTEND Internal Medicine
PROC: 0J9H3ZZ Drainage of Left Lower Arm Subcutaneous Tissue and Fascia, Percutaneous Approach (ICD-10-PCS; principal; 2018-04-18)
DX: L03.114 Cellulitis of left upper limb (principal); L02.414 Cutaneous abscess of left upper limb; F11.10 Opioid abuse, uncomplicated; Z71.6 Tobacco abuse counseling; F17.210 Nicotine dependence, cigarettes, uncomplicated; F31.9 Bipolar disorder, unspecified; F43.10 Post-traumatic stress disorder, unspecified; Z82.49 Family history of ischemic heart disease and other diseases of the circulatory system; Z91.14 Patient's other noncompliance with medication regimen; Z86.19 Personal history of other infectious and parasitic diseases; Z82.0 Family history of epilepsy and other diseases of the nervous system; F10.11 Alcohol abuse, in remission; Z88.0 Allergy status to penicillin; F41.9 Anxiety disorder, unspecified; Z71.51 Drug abuse counseling and surveillance of drug abuser
CPT/HCPCS: 10160; 36415; 74177; 80053; 80202; 81003; 82105; 82150; 83605; 83690; 85025; 85610; 85730; 87040; 87086; 94760; 96365; 96375; 99285

== ENCOUNTER 2018-07-13 22:34 | Emergency (ER) | payer BC, OTHER ==
[2018-07-13 22:44] VITALS: BP 151/97; PULSE 110; RESP 18; TEMP 98.3
[2018-07-13] MEDS ORDERED: DIPH,PERTUS(ACELL)TETVAC-LF 0.5 ML VIAL IM ONE (23:03)
[2018-07-13] MEDS ORDERED: LIDOCAINE 1% INJ 10MG/ML (20 ML MDV) SQ ONE (23:03)
--- NOTE | 2018-07-13 23:57 | ED ---
General Adult HPI - General Chief complaint: Wound/Laceration Stated complaint: Finger Lac Time Seen by Provider: 07/13/18 22:49 Source: patient Mode of arrival: ambulatory Limitations: no limitations - History of Present Illness Initial comments: Patient is a 42-year-old male presents emergency Department with a laceration to the PIP of his left second digit. Patient reports drinking alcohol earlier today when he decided to sharpen some metal and caused a laceration. Patient reports walking to the emergency department. Patient reports mild bleeding at the site of injury. Patient reports the pain is localized only to the site of injury without radiation. Patient reports full range of motion. Patient denies numbness or tingling.. Patient denies use of blood thinners. Patient is unaware of his tetanus status. Patient denies taking medication to alleviate the pain. - Related Data Home Medications Medication Instructions Recorded Confirmed Buprenorphine HCl/Naloxone HCl 1 film SL BID 07/13/18 07/13/18 [Suboxone 8 mg-2 mg Sl Film] Allergies Allergy/AdvReac Type Severity Reaction Status Date / Time influenza virus vaccine, Allergy Rash/Hives Verified 07/13/18 23:06 specific Penicillins Allergy Anaphylaxis Verified 07/13/18 23:06 Review of Systems ROS Statement: Those systems with pertinent positive or pertinent negative responses have been documented in the HPI. ROS Other: All systems not noted in ROS Statement are negative. Past Medical History Past Medical History: No Reported History Additional Past Medical History / Comment(s): alcohol abuse for years, hep c, drug addiction " all drugs" History of Any Multi-Drug Resistant Organisms: None Reported Past Surgical History: No Surgical Hx Reported Additional Past Surgical History / Comment(s): ganglion cyst. Past Anesthesia/Blood Transfusion Reactions: No Reported Reaction Past Psychological History: Anxiety, Bipolar, Depression, PTSD Smoking Status: Current every day smoker Past Alcohol Use History: Abuse Past Drug Use History: Cocaine, Heroin, IV Drug Use, Methamphetamine, Opiates, Prescription Drug Abuse - Past Family History Father Family Medical History: Myocardial Infarction ([place]) Mother Additional Family Medical History / Comment(s): MS General Exam Limitations: no limitations General appearance: alert, in no apparent distress Head exam: Present: atraumatic, normocephalic, normal inspection Eye exam: Present: normal appearance, PERRL, EOMI Pupils: Present: normal accommodation ENT exam: Present: normal exam Neck exam: Present: normal inspection, full ROM Respiratory exam: Present: normal lung sounds bilaterally Cardiovascular Exam: Present: regular rate, normal rhythm, normal heart sounds Left Shoulder Exam: Present: normal inspection, full ROM Upper Arm exam: Present: normal inspection, full ROM Elbow exam: Present: normal inspection, full ROM Forearm Wrist exam: Present: normal inspection, full ROM Hand Wrist exam: Present: tenderness (PIP on left second digit.), laceration (2 cm laceration on the PIP of left second digit.) Vascular: Present: normal capillary refill, radial pulse, ulnar pulse Back exam: Present: normal inspection, full ROM Neurological exam: Present: alert, oriented X3 Psychiatric exam: Present: normal affect, normal mood Skin exam: Present: warm, intact, normal color Course Vital Signs 07/13/18 22:40 Temperature 98.3 F Pulse Rate 110 H Respiratory 18 Rate Blood Pressure 151/97 O2 Sat by Pulse 98 Oximetry Procedures - Laceration Laceration #1 Consent Obtained: verbal consent Indication: laceration Site: hand Size (cm): 2 Description: linear Depth: simple, single layer Anesthetic Used: lidocaine 1% Anesthesia Technique: local infiltration Amount (mls): 10 Pre-repair: irrigated extensively Type of Sutures: nylon Size of Sutures: 4-0 Number of Sutures: 6 Technique: simple, interrupted Patient Tolerated Procedure: well Medical Decision Making - Medical Decision Making Patient is a 42-year-old male presenting to emergency department with a lac eration to the PIP of left second digit. Patient was given tetanus prophylaxis. The laceration was repaired with 3 sutures. Patient advised to return to emergency department in 10 days. Patient advised to follow proper wound care instructions. Patient advised to follow-up primary care. Patient advised to return to emergency department if symptoms worsen. Case discussed with physician. Disposition Clinical Impression: Laceration Disposition: HOME SELF-CARE Condition: Stable Instructions (If sedation given, give patient instructions): Laceration (DC) Additional Instructions: Please follow up primary care. Please return to emergency department if symptoms worsen. Please return in 10 days for suture removal. Is patient prescribed a controlled substance at d/c from ED?: No Referrals: Armando Melendrez MD [Primary Care Provider] - 1-2 days Time of Disposition: 23:30
== END 2018-07-14 00:05 | disposition home or self-care (01) ==
LOC: EC 22:34
DX: S61.211A Laceration without foreign body of left index finger without damage to nail, initial encounter (principal); F10.10 Alcohol abuse, uncomplicated; F17.200 Nicotine dependence, unspecified, uncomplicated; Z88.0 Allergy status to penicillin; Z88.7 Allergy status to serum and vaccine; Z98.890 Other specified postprocedural states; Z23 Encounter for immunization; W26.8XXA Contact with other sharp object(s), not elsewhere classified, initial encounter; Y93.89 Activity, other specified; Y92.015 Private garage of single-family (private) house as the place of occurrence of the external cause
CPT/HCPCS: 90715; 99282; 12001; 90471; J2001

== ENCOUNTER 2018-08-13 16:41 | Inpatient (IN) | payer BC ==
[2018-08-13] MEDS ORDERED: LEVOFLOXACIN 750MG-D5W PMX 750 MG in DEXTROSE/WATER 1 150ML.BAG IVPB STA (16:57)
[2018-08-13] MEDS ORDERED: SODIUM CHLORIDE 0.9% 1,000 ML IV ONE ×2 (16:57→19:07)
[2018-08-13] MEDS ORDERED: VANCOMYCIN IV PER PHARMACY 1 EACH MISC MISCELLANE PRN ×2 (16:57→20:13)
[2018-08-13] MEDS ORDERED: KETOROLAC 30 MG/ML 1 ML VIAL IVP STA (16:58)
[2018-08-13] MEDS ORDERED: MORPHINE SULFATE 4 MG/ML SYRINGE IVP STA ×2 (16:58→16:59)
[2018-08-13] MEDS ORDERED: ACETAMINOPHEN TAB 500 MG TAB PO STA (16:59)
[2018-08-13] MEDS ORDERED: VANCOMYCIN 1,500 MG in SODIUM CHLORIDE 0.9% 250 ML IVPB ONE (17:00)
[2018-08-13] MEDS ORDERED: ONDANSETRON 4 MG/2 ML VIAL IVP STA (17:01)
--- NOTE | 2018-08-13 17:05 | ED ---
General Adult HPI - General Chief complaint: Psychiatric Symptoms Stated complaint: Abscess Time Seen by Provider: 08/13/18 16:49 Source: patient, RN notes reviewed, old records reviewed Mode of arrival: ambulatory Limitations: no limitations - History of Present Illness Initial comments: Patient is a 43-year-old male who presents emergency department today for evaluation with complaints of right forearm abscess. Patient reports that he has a history of IV drug abuse, drug choice is heroin. Patient reports that he injected into his right forearm 4 days ago. He states that he's had abscesses such as this will pass. He also states that he is suicidal but denies any specific plan. Patient reports emergency Department with fever, complains of decreased strength within the right arm due to swelling. Patient states that he has been hospitalized with these in the past. - Related Data Home Medications Medication Instructions Recorded Confirmed Buprenorphine HCl/Naloxone HCl 1 film SL BID 07/13/18 07/13/18 [Suboxone 8 mg-2 mg Sl Film] Allergies Allergy/AdvReac Type Severity Reaction Status Date / Time influenza virus vaccine, Allergy Rash/Hives Verified 08/13/18 16:59 specific Penicillins Allergy Anaphylaxis Verified 08/13/18 16:59 Review of Systems ROS Statement: Those systems with pertinent positive or pertinent negative responses have been documented in the HPI. ROS Other: All systems not noted in ROS Statement are negative. Past Medical History Past Medical History: No Reported History Additional Past Medical History / Comment(s): alcohol abuse for years, hep c, drug addiction " all drugs" History of Any Multi-Drug Resistant Organisms: None Reported Past Surgical History: No Surgical Hx Reported Additional Past Surgical History / Comment(s): ganglion cyst. Past Anesthesia/Blood Transfusion Reactions: No Reported Reaction Past Psychological History: Anxiety, Bipolar, Depression, PTSD Smoking Status: Current every day smoker Past Alcohol Use History: Abuse Past Drug Use History: Cocaine, Heroin, IV Drug Use, Methamphetamine, Opiates, Prescription Drug Abuse - Past Family History Father Family Medical History: Myocardial Infarction ([place]) Mother Additional Family Medical History / Comment(s): MS General Exam - General Exam Comments Initial Comments: 43-year-old male. Alert and oriented 3. Patient appears in moderate discomfort. Pacing around the room. Limitations: no limitations General appearance: alert, in no apparent distress Head exam: Present: atraumatic, normocephalic, normal inspection Eye exam: Present: normal appearance, PERRL, EOMI. Absent: scleral icterus, conjunctival injection, periorbital swelling ENT exam: Present: normal exam, mucous membranes moist Neck exam: Present: normal inspection. Absent: tenderness, meningismus, lymphadenopathy Respiratory exam: Present: normal lung sounds bilaterally. Absent: respiratory distress, wheezes, rales, rhonchi, stridor Cardiovascular Exam: Present: regular rate, normal rhythm, normal heart sounds. Absent: systolic murmur, diastolic murmur, rubs, gallop, clicks GI/Abdominal exam: Present: soft, normal bowel sounds. Absent: distended, tenderness, guarding, rebound, rigid Right Elbow exam: Present: normal inspection, full ROM Forearm Wrist exam: Present: full ROM. Absent: normal inspection (Patient has a large forcibly by 3 cm abscess over the right forearm with surrounding circumfer ential cellulitis.) Hand Wrist exam: Present: normal inspection, full ROM Neuro motor exam: Present: wrist extension intact, thumb opposition intact, thumb IP flexion intact, thumb adduction intact, fingers 2-5 abduction intact Vascular: Present: normal capillary refill Back exam: Present: normal inspection Neurological exam: Present: alert, oriented X3, CN II-XII intact Psychiatric exam: Present: normal affect Skin exam: Present: warm, dry, intact, normal color. Absent: rash Course Vital Signs 08/13/18 16:54 Temperature 100.9 F H Pulse Rate 89 Respiratory 22 Rate Blood Pressure 150/110 O2 Sat by Pulse 96 Oximetry Medical Decision Making - Medical Decision Making Patient is a 43-year-old male persist restarted today with right forearm abscess and cellulitis. Latest IV drug use. Incision and drainage is completed. Patient did not tolerate the procedure well swelling some purulent fluid was removed for Patient would refuse further treatment of removing the abscess. Patient was started on Levaquin and vancomycin. He is ALLERGIC to penicillins. Lactic acid is elevated 2.3. Given 2 L bolus. We'll admit the Patient this time with consult infectious disease. Aerobic wound culture is completed. - Lab Data Result diagrams: 08/13/18 17:04 08/13/18 17:04 Lab Results 08/13/18 08/13/18 08/13/18 Range/Units 17: 17: 17:04 WBC 13.5 H (3.8-10.6) k/uL RBC 4.61 (4.30-5.90) m/uL Hgb 14.7 (13.0-17.5) gm/dL Hct 42.8 (39.0-53.0) % MCV 92.9 (80.0-100.0) fL MCH 31.9 (25.0-35.0) pg MCHC 34.3 (31.0-37.0) g/dL RDW 12.6 (11.5-15.5) % Plt Count 269 (150-450) k/uL Neutrophils % 75 % Lymphocytes % 16 % Monocytes % 4 % Eosinophils % 2 % Basophils % 1 % Neutrophils # 10.1 H (1.3-7.7) k/uL Lymphocytes # 2.1 (1.0-4.8) k/uL Monocytes # 0.6 (0-1.0) k/uL Eosinophils # 0.3 (0-0.7) k/uL Basophils # 0.1 (0-0.2) k/uL Sodium 140 (137-145) mmol/L Potassium 4.4 (3.5-5.1) mmol/L Chloride 104 (98-107) mmol/L Carbon Dioxide 26 (22-30) mmol/L Anion Gap 10 mmol/L BUN 12 (9-20) mg/dL Creatinine 0.83 (0.66-1.25) mg/dL Est GFR (CKD-EPI)AfAm >90 (>60 ml/min/1.73 sqM) Est GFR (CKD-EPI)NonAf >90 (>60 ml/min/1.73 sqM) Glucose 106 H (74-99) mg/dL Plasma Lactic Acid Nelson 2.3 H* (0.7-2.0) mmol/L Calcium 9.0 (8.4-10.2) mg/dL Total Bilirubin 1.0 (0.2-1.3) mg/dL AST 27 (17-59) U/L ALT 25 (21-72) U/L Alkaline Phosphatase 58 (38-126) U/L Total Protein 7.1 (6.3-8.2) g/dL Albumin 4.0 (3.5-5.0) g/dL Serum Alcohol <10 mg/dL - Radiology Data Radiology results: report reviewed Right forearm is soft tissue swelling. Disposition Clinical Impression: Abscess of forearm, Drug abuse, Sepsis Disposition: ADMITTED IP TO THIS HOSP Condition: Stable Is patient prescribed a controlled substance at d/c from ED?: No Referrals: Armando Mleendrez MD [Primary Care Provider] - 1-2 days Time of Disposition: 18:27
[2018-08-13] MEDS ORDERED: LIDOCAINE/EPINEPHR/TETRACAINE 5 ML BOTTLE TOPICAL ONE (17:09)
[2018-08-13] MEDS: SODIUM CHLORIDE 0.9% 1,000 ML IV SCH (17:13)
[2018-08-13 17:25] LABS: Basophils # (A) 0.1 k/uL (0-0.2); Basophils % (A) 1 %; Eosinophils # (A) 0.3 k/uL (0-0.7); Eosinophils % (A) 2 %; HCT 42.8 % (39.0-53.0); HGB 14.7 gm/dL (13.0-17.5); Lymphocytes # (A) 2.1 k/uL (1.0-4.8); Lymphocytes % (A) 16 %; MCH 31.9 pg (25.0-35.0); MCHC 34.3 g/dL (31.0-37.0); MCV 92.9 fL (80.0-100.0); Mean Platelet Volume 6.7; Monocytes # (A) 0.6 k/uL (0-1.0); Monocytes % (A) 4 %; Neutrophils # (A) 10.1 k/uL (1.3-7.7); Neutrophils % (A) 75 %; Platelet Count 269 k/uL (150-450); RBC 4.61 m/uL (4.30-5.90); RDW 12.6 % (11.5-15.5); WBC 13.5 k/uL (3.8-10.6)
--- NOTE | 2018-08-13 17:32 | XR ---
EXAMINATION TYPE: XR forearm RT DATE OF EXAM: 08/13/2018 COMPARISON: NONE HISTORY: Forearm abscess. Pain TECHNIQUE: 2 views FINDINGS: There is soft tissue swelling anterior to the mid forearm on the lateral view. I see no fra cture nor dislocation. Elbow joint and wrist joint appear intact. IMPRESSION: Anterior soft tissue swelling.
[2018-08-13 17:38] LABS: ALT 25 U/L (21-72); AST 27 U/L (17-59); African American GFR (CKD) >90 (>60 ml/min/1.73 sqM); Alcohol <10 mg/dL; Alkaline Phosphatase 58 U/L (38-126); Anion Gap 10 mmol/L; Blood Urea Nitrogen 12 mg/dL (9-20); Carbon Dioxide 26 mmol/L (22-30); Chloride 104 mmol/L (98-107); Glucose 106 mg/dL (74-99); Potassium 4.4 mmol/L (3.5-5.1); Sodium 140 mmol/L (137-145); Total Protein 7.1 g/dL (6.3-8.2)
[2018-08-13] MEDS ORDERED: NALOXONE 0.4 MG/ML 1 ML VIAL IV PRN (18:28)
[2018-08-13] MEDS ORDERED: KETOROLAC 30 MG/ML 1 ML VIAL IVP PRN (18:28)
[2018-08-13] MEDS ORDERED: ACETAMINOPHEN TAB 325 MG TAB PO PRN (18:28)
[2018-08-13] MEDS ORDERED: IBUPROFEN 400 MG TAB PO PRN (18:28)
--- NOTE | 2018-08-13 20:11 | P.HPIM ---
History of Present Illness H&P Date: 08/13/18 The patient is a 43 yo M with a PMH of polysubstance abuse (heroin, cocaine, methamphetamines), Hepatitis C, tobacco abuse, anxiety, and depression presented to the ED for R forearm swelling and pain. The patient reports that for the past 3 days he has had worsening pain and swelling of his R forearm. He notes injecting heroin at the site 4 days prior. He reports prior abscesses of his arms brought on by injecting substances. He notes that the pain gradually worsened and became a 10/10 earlier today at which time he came to the ED. He also endorsed fever and chills, R hand weakness due to pain, and finger paresthesias. At time of the interview, he reports his pain had improved to a 7/10. He notes he has difficulty making a fist with his right hand due to pain and developed tingling of his fingers a few hours prior to presentation. The patient also stated that he is tired of his constant substance abuse and is contemplating suicide, though denied any particular plan. He otherwise denied nausea, vomiting, chest pain or SOB. Denied abdominal pain, diarrhea, sick contacts, or recent travel. He underwent an extensive evaluation in the ED w/ R forearm x-ray showing soft-tissue swelling. Laboratory evaluation revealed a WBC count of 13.5, lactate 2.3, Cr 0.83, and Hgb 14.7. He is allergic to Penicillins and was given Levaquin and Vancomycin and admitted to the medicine service for further management. Review of Systems Pertinent positives and negatives as discussed in HPI, a complete review of systems was performed and all other systems are negative. Past Medical History Past Medical History: No Reported History Additional Past Medical History / Comment(s): alcohol abuse for years, hep c, drug addiction " all drugs" History of Any Multi-Drug Resistant Organisms: None Reported Past Surgical History: No Surgical Hx Reported Additional Past Surgical History / Comment(s): ganglion cyst. Past Anesthesia/Blood Transfusion Reactions: No Reported Reaction Past Psychological History: Anxiety, Bipolar, Depression, PTSD Smoking Status: Current every day smoker Past Alcohol Use History: Abuse Past Drug Use History: Cocaine, Heroin, IV Drug Use, Methamphetamine, Opiates, Prescription Drug Abuse - Past Family History Father Family Medical History: Myocardial Infarction ([place]) Mother Additional Family Medical History / Comment(s): MS Medications and Allergies Home Medications Medication Instructions Recorded Confirmed Type Buprenorphine HCl/Naloxone HCl 1 film SL TID 07/13/18 08/13/18 History [Suboxone 8 mg-2 mg Sl Film] Allergies Allergy/AdvReac Type Severity Reaction Status Date / Time influenza virus vaccine, Allergy Rash/Hives Verified 08/13/18 18:38 specific Penicillins Allergy Anaphylaxis Verified 08/13/18 18:38 Physical Exam Vitals: Vital Signs Temp Pulse Resp BP Pulse Ox 08/13/18 19:05 97.7 F 95 18 123/95 97 08/13/18 16:54 100.9 F H 89 22 150/110 96 Intake and Output 08/13/18 08/13/18 08/13/18 06:59 14:59 22:59 Other: Weight 71.668 kg General: non toxic, in moderate distress from pain, appears at stated age, normal weight Derm: Right anterior forearm swelling, erythema, and induration with an ulcer and underlying fluctuance difficult to quantify size due to significant guarding by patient, warm Head: atraumatic, normocephalic, symmetric Eyes: EOMI, no lid lag, anicteric sclera, pupils equal round reactive to light ENT: Nose and ears atraumatic, no thrush, no pharyngeal erythema Neck: No thyromegaly, no cervical lymphadenopathy, trachea midline, supple Mouth: no lip lesion, mucus membranes moist Cardiovascular: S1S2 reg, no murmur, positive posterior tibial pulse bilateral, no edema, capillary refill less than 2 seconds Lungs: CTA bilateral, no rhonchi, no rales , no accessory muscle use Abdominal: soft, nontender to palpation, no guarding, no appreciable organomegaly, normal bowel sounds Ext: no gross muscle atrophy, muscle strength 5 out of 5 in all extremities grossly except RUE due to pain, no contractures, R hand limited ROM and strength due to pain, R radial pulse 3+, no overlying skin pallor, R hand and forearm skin warm Neuro: CN II-XI grossly intact, light touch intact all 4 extremities Psych: Alert, oriented, appropriate affect Results CBC & Chem 7: 08/13/18 17:04 08/13/18 17:04 Labs: Abnormal Lab Results - Last 24 Hours (Table) 08/13/18 08/13/18 08/13/18 Range/Units 17:04 17:04 17:04 WBC 13.5 H (3.8-10.6) k/uL Neutrophils # 10.1 H (1.3-7.7) k/uL Glucose 106 H (74-99) mg/dL Plasma Lactic Acid Nelson 2.3 H* (0.7-2.0) mmol/L Assessment and Plan Plan: Severe sepsis secondary to R forearm abscess, underwent I&D in the ED -C/w Vancomcycin and Levofloxacin -ID consult -In setting of paresthesias and decreased ROM, will consult surgery for monitoring of possible compartment syndrome and possible repeat I&D -IVFs -F/u blood and wound cultures -Pain control Suicidal ideation and hx of depression -Consult psychiatry -Suicide precautions for now Active tobacco abuse and Polysubstance abuse -Advised patient on importance of cessation -Nicotine patch DVT prophylaxis -Lovenox The patient is admitted with an anticipated greater than 2 midnight stay for evaluation of severe sepsis from abscess. CODE STATUS:Full Code Discussed with: Patient Anticipated discharge date: 08/15/[address]: Home A total of 45 minutes was spent on the care of this complex patient more than 50% of the time was spent in counseling and care coordination.
[2018-08-13] MEDS: oxyCODONE-APAP 5-325MG 1 EACH TAB PO PRN (21:11)
[2018-08-14] MEDS: oxyCODONE-APAP 5-325MG 1 EACH TAB PO PRN ×3 (01:17→16:56)
[2018-08-14] MEDS: SODIUM CHLORIDE 0.9% 1,000 ML IV SCH ×5 (03:46→19:41)
[2018-08-14] MEDS: VANCOMYCIN 1,250 MG in SODIUM CHLORIDE 0.9% 250 ML IVPB SCH ×3 (03:47→22:04)
[2018-08-14 04:10] LABS: Amphetamine Screen,Urine Detected (NotDetected); Barbiturate Screen,Urine Not Detected (NotDetected); Benzodiazepines Screen,Urine Not Detected (NotDetected); Cocaine Screen,Urine Detected (NotDetected); Methadone Screen, Urine Not Detected (NotDetected); Opiate Screen,Urine Detected (NotDetected); Oxycodone Screen, Urine Detected (NotDetected); Phencyclidine Screen,Urine Not Detected (NotDetected); Tricyclic Antidepressant,Urine Not Detected (NotDetected); Urn Cannabinoid Scrn Not Detected (NotDetected)
[2018-08-14] MEDS ORDERED: METHADONE 10 MG TAB PO STA (05:48)
[2018-08-14] MEDS: ENOXAPARIN 40 MG/0.4 ML SYRINGE SQ SCH (08:56)
[2018-08-14] MEDS: PANTOPRAZOLE 40 MG/10 ML VIAL IV SCH (08:58)
[2018-08-14] MEDS: NICOTINE 14MG/24HR PATCH TRANSDERM SCH (11:12)
--- NOTE | 2018-08-14 11:14 | P.PN ---
Subjective Progress Note Date: 08/14/18 Principal diagnosis: Forearm abscess Patient was seen and examined. No acute events overnight. Patient reports right forearm pain, 5 out of 10 in severity. States that it is too bags of IV heroin daily. He denies any chest pain, shortness breath or palpitations. No nausea or vomiting. No fever or chills. Objective - Vital Signs Vital signs: Vital Signs Temp 97.4 F L 08/14/18 07:17 Pulse 76 08/14/18 07:17 Resp 19 08/14/18 07:17 BP 135/97 08/14/18 07:17 Pulse Ox 98 08/14/18 07:17 Intake & Output 08/13/18 08/14/18 08/14/18 18:59 06:59 18:59 Intake Total 240 Balance 240 Weight 71.668 kg 71.668 kg Intake: Oral 240 - Exam General: [non toxic], [no distress], [appears at stated age] Derm: [warm], [dry] Head: [atraumatic], [normocephalic], [symmetric] Eyes: [EOMI], [no lid lag], [anicteric sclera] Mouth: [no lip lesion], [mucus membranes moist] Cardiovascular: [S1S2 reg], [no murmur], [positive posterior tibial pulse bilateral], Lungs: [CTA bilateral], [no rhonchi, no rales] , [no accessory muscle use] Abdominal: [soft], [ nontender to palpation], [no guarding], [no appreciable organomegaly] Ext: [no gross muscle atrophy], [no edema], [no contractures], [right forearm serosanguineous discharge, wrapped with dressing clean dry and intact] Neuro: [no focal neuro deficits] Psych: [Alert], [oriented], [appropriate affect] - Labs CBC & Chem 7: 08/13/18 17:04 08/13/18 17:04 Labs: Abnormal Lab Results - Last 24 Hours (Table) 08/13/18 08/13/18 08/13/18 Range/Units 17:04 17: 17:04 WBC 13.5 H (3.8-10.6) k/uL Neutrophils # 10.1 H (1.3-7.7) k/uL Glucose 106 H (74-99) mg/dL Plasma Lactic Acid Nelson 2.3 H* (0.7-2.0) mmol/L Urine Opiates Screen (NotDetected) Ur Oxycodone Screen (NotDetected) Ur Amphetamines Screen (NotDetected) U Methamphetamines Scrn (NotDetected) Urine Cocaine Screen (NotDetected) 08/14/18 Range/Units 03:40 WBC (3.8-10.6) k/uL Neutrophils # (1.3-7.7) k/uL Glucose (74-99) mg/dL Plasma Lactic Acid Nelson (0.7-2.0) mmol/L Urine Opiates Screen Detected H (NotDetected) Ur Oxycodone Screen Detected H (NotDetected) Ur Amphetamines Screen Detected H (NotDetected) U Methamphetamines Scrn Detected H (NotDetected) Urine Cocaine Screen Detected H (NotDetected) Microbiology - Last 24 Hours (Table) 08/13/18 19:16 Gram Stain - Preliminary Arm - Right Wound Culture - Preliminary Assessment and Plan Assessment: Assessment and Plan Sepsis due to right forearm abscess, I&D performed in the ED Suicidal ideation with history of depression IV drug abuse along with tobacco abuse Initially met septic criteria. Leukocytosis of 13.5, febrile at 100.9F, positive source of infection, lactic acid 2.3. Lactic acid within normal limits on repeat. Right forearm x-ray shows anterior soft tissue swelling. Plans: Pain management with Tylenol, Motrin, Toradol, Percocet. Add Morphine as needed. Started on vancomycin and levofloxacin IV for concerns of cellulitis. Follow wound cultures. Follow blood cultures. Follow general surgery consultation. Follow ID consultation. Continue normal saline at 150 mL per hour. Zofran as needed for nausea or vomiting. Plans: Continue sitter. Suicidal precautions. Continue psychiatry consultation. Plans: Start methadone. Offer nicotine patch. Patient admitted for sepsis secondary to right forearm abscess from IV drug use. I&D performed in the ED. Patient to go to OR today. Start methadone and adequate pain management. Is pending clinical improvement. Likely DC in 2-3 days.
[2018-08-14] MEDS: METHADONE 10 MG TAB PO SCH (11:30)
--- NOTE | 2018-08-14 12:03 | P.GSCN ---
History of Present Illness Consult date: 08/14/18 History of present illness: CHIEF COMPLAINT: Right forearm abscess HISTORY OF PRESENT ILLNESS: The patient is a 43 year old male who presents with history of intravenous drug abuse including IV heroin. He presented to the emergency room yesterday with moderate to severe pain of the right forearm with swelling and cellulitis. He presented with fevers including elevated white count over 14,000. Incidentally, he did have suicidal ideation. He also reported troubles with bending his right hand including decreased sensation of the hand as result of the swelling of the right forearm. A bedside I&D was attempted by emergency room provider. This morning, pain has somewhat improved however moderate swelling still persists. As result of the severity of the abs cess of the forearm, Gen. surgery is consultated for further intervention. PAST MEDICAL HISTORY: See list. PAST SURGICAL HISTORY: See list. MEDICATIONS: See list. ALLERGIES: See list. SOCIAL HISTORY: Has illicit drug use with heroin use FAMILY HISTORY: Noncontributory however please see list REVIEW OF ORGAN SYSTEMS: CONSTITUTIONAL: No fevers or chills. No recent weight loss. EYES: Denies any trouble with vision. No glasses. HEENT: No difficulties with hearing. No nosebleeds. No difficulty swallowing. RESPIRATORY: Denies pneumonia. Denies any troubles with breathing or dyspnea on exertion. CARDIOVASCULAR: Denies any chest pain, palpitations, or recent heart attacks. GASTROINTESTINAL: Denies fatty food intolerance. Denies change in bowel habits and gas bloat. GENITOURINARY: Denies any blood in urine or increased urinary frequency. NEUROLOGICAL: Denies any numbness or tingling along the distal extremities. No seizure disorders or headaches. MUSCULOSKELETAL: Has back pain, stiffness or joint arthritis. Has specific forearm pain SKIN: No current skin cancer. No rash. PSYCHIATRIC: Has current depression. Has suicidal thoughts. ENDOCRINE: Denies current thyroid disorders. Denies any blood sugar glucose intolerance. HEME/LYMPHATIC: Denies any lumps and bumps around the neck. No recent deep venous thrombosis. ALLERGY/IMMUNOLOGY: No immunoglobulin therapy. No immune deficiencies. BREAST: Denies current breast lumps, pain or nipple discharge. PHYSICAL EXAM: VITALS: Reviewed CONSTITUTIONAL: Well developed and in no acute distress. EYES: Conjuctivae without sclera icterus. Pupils are equally round and reactive to light. Extraocular movements grossly intact. HEAD, EARS, NOSE, THROAT: Moist buccal mucosa. Head is atraumatic, normocephalic. Hears conversational speech. No nasal drainage. Good dentition. NECK: Supple. No JV distention. No thyroidomegaly. RESPIRATORY: Non-labored respirations and equal bilateral excursions. No gross wheezes. CARDIOVASCULAR: Regular rate and rhythm. Palpable 2+ radial pulses. ABDOMEN: No hepatomegaly. Soft. Non-tender. Nondistended. LYMPH: No neck lymphadenopathy. No axillary lymphadenopathy. MUSCULOSKELETAL: Has edema and swelling along the proximal right forearm volar aspect dressings clean dry and intact. Sensation intact bilateral hands. SKIN: Warm and well perfused with good skin turgor. NEUROLOGIC: Cranial nerves I through XII grossly intact. Sensation upper and extremities intact. No focal or lateralizing signs. PSYCH: Appropriate affect. Alert and oriented to person, place and time. Displays appropriate insight. CLINCAL LABS: Reviewed with white blood cell count over 14,000 RADIOLOGY: Report reviewed without fracture of the right forearm IMAGING: Independently reviewed moderate soft tissue swelling of right forearm without gas or evidence of necrotizing fasciitis ASSESSMENT: 1. Right forearm abscess with cellulitis, complicated 2. History of IV drug abuse, IV heroin use 3. Suicidal ideation, acute PLAN: 1. Recommend further drainage and debridement of the right forearm surgically 2. Nothing by mouth at this time. 3. IV antibiotics 4. Suicidal precautions Thank you for this kind consultation. Past Medical History Past Medical History: No Reported History Additional Past Medical History / Comment(s): alcohol abuse for years, hep c, drug addiction " all drugs" History of Any Multi-Drug Resistant Organisms: None Reported Past Surgical History: No Surgical Hx Reported Additional Past Surgical History / Comment(s): ganglion cyst. Past Anesthesia/Blood Transfusion Reactions: No Reported Reaction Past Psychological History: Anxiety, Bipolar, Depression, PTSD Smoking Status: Current every day smoker Past Alcohol Use History: Abuse Past Drug Use History: Cocaine, Heroin, IV Drug Use, Methamphetamine, Opiates, Prescription Drug Abuse - Past Family History Father Family Medical History: Myocardial Infarction (NH) Mother Additional Family Medical History / Comment(s): MS Medications and Allergies Home Medications Medication Instructions Recorded Confirmed Type Buprenorphine HCl/Naloxone HCl 1 film SL TID 07/13/18 08/13/18 History [Suboxone 8 mg-2 mg Sl Film] Allergies Allergy/AdvReac Type Severity Reaction Status Date / Time influenza virus vaccine, Allergy Rash/Hives Verified 08/13/18 18:38 specific Penicillins Allergy Anaphylaxis Verified 08/13/18 18:38 Surgical - Exam Vital Signs Temp Pulse Resp BP Pulse Ox 100.9 F H 89 22 150/110 96 08/13/18 16:54 08/13/18 16:54 08/13/18 16:54 08/13/18 16:54 08/13/18 16:54 Results - Labs 08/13/18 17:04 08/13/18 17:04 Abnormal Lab Results - Last 24 Hours (Table) 08/13/18 08/13/18 08/13/18 Range/Units 17:04 17:04 17:04 WBC 13.5 H (3.8-10.6) k/uL Neutrophils # 10.1 H (1.3-7.7) k/uL Glucose 106 H (74-99) mg/dL Plasma Lactic Acid Nelson 2.3 H* (0.7-2.0) mmol/L Urine Opiates Screen (NotDetected) Ur Oxycodone Screen (NotDetected) Ur Amphetamines Screen (NotDetected) U Methamphetamines Scrn (NotDetected) Urine Cocaine Screen (NotDetected) 08/14/18 Range/Units 03:40 WBC (3.8-10.6) k/uL Neutrophils # (1.3-7.7) k/uL Glucose (74-99) mg/dL Plasma Lactic Acid Nelson (0.7-2.0) mmol/L Urine Opiates Screen Detected H (NotDetected) Ur Oxycodone Screen Detected H (NotDetected) Ur Amphetamines Screen Detected H (NotDetected) U Methamphetamines Scrn Detected H (NotDetected) Urine Cocaine Screen Detected H (NotDetected) Microbiology - Last 24 Hours (Table) 08/13/18 19:16 Gram Stain - Preliminary Arm - Right Wound Culture - Preliminary Diabetes panel 08/13/18 Range/Units 17:04 Sodium 140 (137-145) mmol/L Potassium 4.4 (3.5-5.1) mmol/L Chloride 104 (98-107) mmol/L Carbon Dioxide 26 (22-30) mmol/L BUN 12 (9-20) mg/dL Creatinine 0.83 (0.66-1.25) mg/dL Glucose 106 H (74-99) mg/dL Calcium 9.0 (8.4-10.2) mg/dL AST 27 (17-59) U/L ALT 25 (21-72) U/L Alkaline Phosphatase 58 (38-126) U/L Total Protein 7.1 (6.3-8.2) g/dL Albumin 4.0 (3.5-5.0) g/dL Calcium panel 08/13/18 Range/Units 17:04 Calcium 9.0 (8.4-10.2) mg/dL Albumin 4.0 (3.5-5.0) g/dL Pituitary panel 08/13/18 Range/Units 17:04 Sodium 140 (137-145) mmol/L Potassium 4.4 (3.5-5.1) mmol/L Chloride 104 (98-107) mmol/L Carbon Dioxide 26 (22-30) mmol/L BUN 12 (9-20) mg/dL Creatinine 0.83 (0.66-1.25) mg/dL Glucose 106 H (74-99) mg/dL Calcium 9.0 (8.4-10.2) mg/dL Adrenal panel 08/13/18 Range/Units 17:04 Sodium 140 (137-145) mmol/L Potassium 4.4 (3.5-5.1) mmol/L Chloride 104 (98-107) mmol/L Carbon Dioxide 26 (22-30) mmol/L BUN 12 (9-20) mg/dL Creatinine 0.83 (0.66-1.25) mg/dL Glucose 106 H (74-99) mg/dL Calcium 9.0 (8.4-10.2) mg/dL Total Bilirubin 1.0 (0.2-1.3) mg/dL AST 27 (17-59) U/L ALT 25 (21-72) U/L Alkaline Phosphatase 58 (38-126) U/L Total Protein 7.1 (6.3-8.2) g/dL Albumin 4.0 (3.5-5.0) g/dL Assessment and Plan (1) Suicidal ideation Current Visit: Yes Status: Acute Code(s): R45.851 - SUICIDAL IDEATIONS SNOMED Code(s): 5287835 (2) Drug abuse Current Visit: Yes Status: Acute Code(s): F19.10 - OTHER PSYCHOACTIVE SUBSTANCE ABUSE, UNCOMPLICATED SNOMED Code(s): 65340565 (3) Sepsis Current Visit: Yes Status: Acute Code(s): A41.9 - SEPSIS, UNSPECIFIED ORGANISM SNOMED Code(s): 31163709 (4) Cellulitis Current Visit: No Status: Acute Code(s): L03.90 - CELLULITIS, UNSPECIFIED SNOMED Code(s): 548043364 (5) Heroin abuse Current Visit: No Status: Acute Code(s): F11.10 - OPIOID ABUSE, UNCOMPLICATED SNOMED Code(s): 6214243 (6) Leukocytosis Current Visit: Yes Status: Acute Code(s): D72.829 - ELEVATED WHITE BLOOD CELL COUNT, UNSPECIFIED SNOMED Code(s): 689589864 (7) Fever Current Visit: Yes Status: Acute Code(s): R50.9 - FEVER, UNSPECIFIED SNOMED Code(s): 054911088
--- NOTE | 2018-08-14 13:00 | P.CN ---
Psychiatric Consult - . Consult date: 08/14/18 Consult:: 08/14/18 12:45 Identification: Patient is a 43-year-old male who presented to the emergency room complaining of an abscess on his right forearm Reason for Consult: Suicidal thoughts History of Present Illness: Patient's chart was reviewed and the patient was seen and interviewed in his room no family members were present patient states that he presented to the emergency room due to an abscess on his forearm where he has been injecting heroin for the last 2 years. Patient states that he is also been using Suboxone on and off. Patient states that he sick of being an addict and states that he has never been able to get to rehab. Patient states that he is frustrated with his inability to stop using drugs and/or alcohol and states that he felt like giving up but had no active plans to act and no active intent. Patient states that he is used heroin IV for the last 2 years and prior to that was snorting it for one year. States that he began using alcohol the age of 21 was drinking up to a half gallon a day during his early and mid 30s, currently he drinks about a pint several times a week. He states that he used cocaine for several years again during his early and mid 30s and denies that he has currently been using. He states that his drug scan is positive for that it's because it was in something he was given and he was unaware of it. Patient states that he's been using methamphetamines on and off for the last year and denies any marijuana use, other amphetamine use or benzodiazepine use. Patient has also been using Neurontin obtained on the street on several occasions because he wasn't feeling well. Patient states that he has never been to inpatient or outpatient alcohol or drug rehab and does not attend AA or NA meetings and states that he last attended meetings many years ago. Patient states that he was seen at [facility] told that he needed to pay $1200 to begin their inpatient program and he stated that he doesn't have the money but does have insurance. Patient states that he is spending about $1000 a week on drugs which is what he makes each week working. Patient states that he attempted suicide twice in the past this is been over 10 years ago and was admitted after both occasions once here and once at [facility] and states he was placed on Effexor and Seroquel at those times and states he stayed on them for a while but never followed up with outpatient psychiatry receiving his medications from his primary care physician. Patient states that he is not currently feeling depressed and refuses any psychotropic medication at this time. He states that he did not feel well and he was on the Seroquel. Patient does not endorse a history of auditory or visual hallucinations does not endorse a history of paranoid or delusional ideation unless he is intoxicated. Patient states that he has never had seizures on alcohol withdrawal and states that he did have blackouts in the past while he was using alcohol. Patient states that he is receiving Narcan once in the past from using heroin and this was 2 years ago. States that he sleeping too much or not at all and states he is eating fairly well. Patient states that he is not currently having any anxiety symptoms. Past Psychiatric History: patient has 2 admissions to inpatient psychiatric units over 10 years ago once here and once in [facility] for suicide attempts once by drowning Recall the other method. Patient was placed on Seroquel and Effexor in the past and states it is been a number of years since he's taken any psychotropic medication. Past Medical/Surgical History: Patient states that he has been diagnosed with hepatitis C Family History: Patient denies any psychiatric history in the family, states on his maternal and paternal side alcohol use disorder prevalent. States his maternal grandfather completed suicide many years ago after he was in a motor vehicle accident while intoxicated killing a whole family. Social History: patient was born in [place] and raised in [place] and both of his parents are alive. He has one sister. Patient completed high school and then went to technical/trade school. 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 He states that he asked for time off from work to get into rehab last Friday. Patient is and has one child age 12. 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 They have been for 13 years. Patient states that he spends his weekly paycheck on drugs and that his is ready to ask him to leave the house. 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 Behavior: Patient does not exhibit any psychomotor agitation or retardation. Speech/Language: Patient's speech is spontaneous of normal volume and rhythm and he is coherent Thought Process: Patient is goal-directed there is no evidence of loose association or flight of ideas. Thought Content: Patient denies any auditory or visual hallucinations and no delusions or paranoid ideation or elicited. Patient states that he wishes to stop using drug and is tired of being an addict. Patient states that he went to [facility] and could not afford the copayment that they were requesting. Patient states that he has been working up until Friday of last week when he asked time off to go get treatment. Patient states that he has been sleeping and eating fairly well. Patient states that he is tired of being an addict Suicidal/Homicidal Ideation: Patient denies any current suicidal or homicidal ideation Sensorium/Cognition: Patient is alert and oriented to person, place, time and his recent and remote memory are grossly intact Mood/Affect: Patient's mood is pleasant and his affect is appropriate Insight/Judgment: Patient's insight and judgment are fair Assessment: Patient has a history over 10 years ago of 2 suicide attempts and was treated with Effexor and Seroquel, he states that he stopped the medications and disliked the side effects and is currently not feeling suicidal. Patient endorses a long history of alcohol and drug use over the last 2 years he has been using IV heroin, and meth and alcohol on a several times a week basis. Patient states that he asked for time off from work to obtain treatment and when he went to [facility] and they asked him to pay $1200 he told them he couldn't afford it even though the patient is spending $1000 a week, his whole paycheck, on drugs. Patient states that he is tired of being an addict and wishes to rece [facility] treatment. Patient does not endorse a history of manic symptoms, psychotic symptoms unless he was intoxicated with drugs and/or alcohol. Diagnosis: Opioid use disorder, severe; methamphetamine use disorder, mild; alcohol use disorder, mild Plan: patient is not currently suicidal and I will discontinue the one-to-one suicide precautions, patient does not require inpatient psychiatric admission is he is not a danger to himself or others and is not verbalizing any current suicidal or homicidal ideation. Patient is interested in inpatient drug rehab, social work consult was already been placed and I discussed with the patient obtaining referrals for inpatient drug rehab. Patient and I discussed long-term consequences of his continued drug use and encourage the patient to follow up with referrals for rehab. Patient does not require any psychotropic medication at this time. I will sign off the case if there are any further questions or concerns please don't hesitate to contact psychiatry.
[2018-08-14 14:01] VITALS: BMI 23.3
[2018-08-14] MEDS: MORPHINE SULFATE 4 MG/ML SYRINGE IVP PRN ×2 (14:59→21:39)
[2018-08-14] MEDS ORDERED: LEVOFLOXACIN 750MG-D5W PMX 750 MG in DEXTROSE/WATER 1 150ML.BAG IVPB SCH (17:00)
[2018-08-14] MEDS ORDERED: VANCOMYCIN TROUGH DUE 1 EACH MISC MISCELLANE ONE (18:00)
[2018-08-14] MEDS ORDERED: MIDAZOLAM (PF) 2 MG/2 ML VIAL IV ONE ×2 (18:45→18:50)
--- NOTE | 2018-08-14 19:07 | P.ANPRN ---
Procedure Note - Anesthesia - Nerve Block Performed Right Axillary Single Time Out Performed: Yes Date of Procedure: 08/14/18 Procedure Start Time: 18:50 Procedure Stop Time: 18:59 Location of Patient Procedure: PreOp Indication: Acute Post-Operative Pain, Dx/Pain Location (Right Forearm Pain), Requested by physician Sedation Type: Sedate with meaningful contact maintained Preparation: Sterile Prep Position: Supine Catheter: None Needle Types: On-Q Needle Gauge: 21 Technique: Ultrasound Injectate: Other (see comment) (15ml 0.5% Ropivacaine + 15ml 2% Lidocaine with Epinephrine 1:200,000) Blood Aspirated: No Pain Paresthesia on Injection Noted: No Resistance on Injection: Normal Events: Uneventful and Well Tolerated
[2018-08-14] MEDS ORDERED: ROPIVACAINE 5 MG/ML 30 ML VIAL ONE (19:36)
[2018-08-14] MEDS ORDERED: GLYCOPYRROLATE 0.2 MG/ML 2 ML VIAL ONE (19:36)
[2018-08-14] MEDS ORDERED: MIDAZOLAM 2 MG/2 ML VIAL ONE (19:36)
[2018-08-14] MEDS ORDERED: fentaNYL (PF) 50 MCG/ML 2 ML AMP ONE (19:36)
[2018-08-14] MEDS ORDERED: PROPOFOL 10 MG/ML 20 ML VIAL IV ONE (19:36)
[2018-08-14] MEDS ORDERED: LIDOCAINE 2%-EPI 1:100,000 20 ML VIAL ONE (19:36)
[2018-08-14] MEDS ORDERED: KETAMINE 10 MG/ML 20 ML VIAL ONE (19:36)
[2018-08-14] MEDS ORDERED: LIDOCAINE 1%-EPI 1:100,000 20 ML VIAL SQ ONE (20:05)
[2018-08-14] MEDS ORDERED: LACTATED RINGERS 1,000 ML IV ONE ×2 (20:09)
--- NOTE | 2018-08-14 20:32 | P.OP ---
Date of Procedure: 08/14/18 Description of Procedure: SURGEON: ADRI MANZANARES MD INDUSTRIAL ELECTRICIAN: NONE. PREOPERATIVE DIAGNOSES: 1. Right forearm abscess with cellulitis 2. Sepsis due to IV drug abuse right forearm cellulitis 3. Anxiety 4. Bipolar disorder 5. Tobacco abuse 6. Depressive disorder 7. Post traumatic stress disorder POSTOPERATIVE DIAGNOSES: 1. Right forearm abscess with cellulitis 2. Sepsis due to IV drug abuse right forearm cellulitis 3. Anxiety 4. Bipolar disorder 5. Tobacco abuse 6. Depressive disorder 7. Post traumatic stress disorder Procedure(s) Performed: 1. Excision of benign skin lesion 4 x 2 cm right forearm volar aspect, 2. Incision and drainage of complex right forearm abscess with cellulitis, subcutaneous tissue 4 x 3 cm Anesthesia: MAC, regional, local Estimated Blood Loss (ml): 40 Pathology: other (Aerobic and anaerobic culture, benign skin lesion) Condition: stable Disposition: floor Operative Findings: 1. Healthy bleeding subcutaneous tissue and muscle bed of superficial muscle compartment right forearm 2. Superficial and deep compartments soft healthy viable tissue without myonecrosis 3. Moderate soft tissue edema extending to the olecranon subcutaneous tissue without necrotizing fasciitis 4. Irrigation of wound 4 x 2 cm using 2 L normal saline solution 5. Wet-to-dry 4 x 4 dressing over wound with gauze and ABD including Coban dressing INDICATIONS: The patient is a 43-year-old gentleman who comes in with sepsis from infected right forearm cellulitis from IV drug abuse. He presented with sepsis. Urgent surgical intervention was described. Benefits and risks were reviewed. Informed consent was obtained. DESCRIPTION: Patient was brought into the operating room, laid in supine position. After adequate IV sedation and right arm block, the right forearm was prepped and draped in standard sterile fashion using ChloraPrep. Prior to incision a timeout protocol was confirmed with surgical team regarding patient's name including procedures being performed. Preoperative antibiotic, which was scheduled vancomycin was already administered. DVT prophylaxis with bilateral SCDs were reviewed. DESCRIPTION: The skin was localized. A longitudinal elliptical incision of 4 x 2 cm was deepened into the subcutaneous tissue with excision of the skin. Aerobic, anaerobic cultures were obtained. The pocket was explored using digital palpation including the anterior and deep compartments of the forearm. No myonecrosis or necrotizing fasciitis was found. Next hemostasis was checked with electro- Bovie cautery. Using 2 L waterjet pulsed lavage, the wound was copiously irrigated. Hemostasis was checked again. The wound was packed with wet-to-dry 4x4 saline, ABD and 6 inch Coban was placed around forearm after cleansing the skin. At the end of the procedure, the needle and sponge counts were verified correct by the registered nurse surgical services. The patient tolerated the procedure well and was taken to postanesthesia care unit in stable condition.
--- NOTE | 2018-08-14 22:45 | P.CONS ---
History of Present Illness - Reason for Consult Consult date: 08/14/18 Right forearm abscess Requesting physician: Cristino Hinojosa - Chief Complaint Right forearm pain and swelling 3 days - History of Present Illness Patient is a 43-year-old male with past medical history significant for IV drug use patient did injected into right forearm about 4 days ago, the patient started having pain swelling and redness of the right forearm at the site of injection with the area becoming more swollen and red and painful pain described to be throbbing with intensity of 10 out of 10 and no radiation patient will be complaining of fever with chills the symptom the patient was evaluated by the ER physician patient did have a fever of 100.9 and elevated white count on presentation to the hospital he did have x-rays of the forearm tissue some soft tissue swelling patient did have a bedside I&D in the ER patient be started on Levaquin and vancomycin and admitted to the hospital infectious disease was consulted for further recommendation regarding antibiotic therapy Review of Systems Positive points has been mentioned in HPI rest of the systems negative Past Medical History Past Medical History: No Reported History Additional Past Medical History / Comment(s): alcohol abuse for years, hep c, drug addiction " all drugs" History of Any Multi-Drug Resistant Organisms: None Reported Past Surgical History: No Surgical Hx Reported Additional Past Surgical History / Comment(s): ganglion cyst. Past Anesthesia/Blood Transfusion Reactions: No Reported Reaction Past Psychological History: Anxiety, Bipolar, Depression, PTSD Smoking Status: Current every day smoker Past Alcohol Use History: Abuse Past Drug Use History: Cocaine, Heroin, IV Drug Use, Methamphetamine, Opiates, Prescription Drug Abuse - Past Family History Father Family Medical History: Myocardial Infarction ([place]) Mother Additional Family Medical History / Comment(s): MS Medications and Allergies Home Medications Medication Instructions Recorded Confirmed Type Buprenorphine HCl/Naloxone HCl 1 film SL TID 07/13/18 08/13/18 History [Suboxone 8 mg-2 mg Sl Film] Allergies Allergy/AdvReac Type Severity Reaction Status Date / Time influenza virus vaccine, Allergy Rash/Hives Verified 08/13/18 18:38 specific Penicillins Allergy Anaphylaxis Verified 08/13/18 18:38 Physical Exam Vitals: Vital Signs Temp Pulse Pulse Resp BP BP Pulse Ox 08/14/18 07:17 97.4 F L 76 19 135/97 98 08/14/18 07:12 98.1 F 63 15 126/81 99 08/14/18 06:56 97.4 F L 71 18 135/97 98 08/14/18 02:58 97.8 F 68 17 120/81 99 08/13/18 23:30 98.0 F 61 18 120/80 99 08/13/18 20:37 97.8 F 76 18 126/78 97 08/13/18 19:05 97.7 F 95 18 123/95 97 08/13/18 16:54 100.9 F H 89 22 150/110 96 Intake and Output 08/13/18 08/14/18 08/14/18 22:59 06:59 14:59 Intake Total 240 Balance 240 Intake: Oral 240 Other: Weight 71.668 kg 71.668 kg GENERAL DESCRIPTION: Middle-aged male lying in bed, no distress. No tachypnea or accessory muscle of respiration use. HEENT: Shows Pallor , no scleral icterus. Oral mucous membrane is dry. No pharyngeal erythema or thrush NECK: Trachea central, no thyromegaly. LUNGS: Unlabored breathing. Clear to auscultation anteriorly. No wheeze or crackle. HEART: S1, S2, regular rate and rhythm. No loud murmur ABDOMEN: Soft, no tenderness , guarding or rigidity, no organomegaly EXTREMITIES: Right forearm is swollen and red tender to touch. SKIN: No rash, no masses palpable. NEUROLOGICAL: The patient is awake, alert, oriented x3, mood and affect normal Results CBC & Chem 7: 08/13/18 17:04 08/13/18 17:04 Labs: Abnormal Lab Results - Last 24 Hours (Table) 08/13/18 08/13/18 08/13/18 Range/Units 17:04 17:04 17:04 WBC 13.5 H (3.8-10.6) k/uL Neutrophils # 10.1 H (1.3-7.7) k/uL Glucose 106 H (74-99) mg/dL Plasma Lactic Acid Nelson 2.3 H* (0.7-2.0) mmol/L Urine Opiates Screen (NotDetected) Ur Oxycodone Screen (NotDetected) Ur Amphetamines Screen (NotDetected) U Methamphetamines Scrn (NotDetected) Urine Cocaine Screen (NotDetected) 08/14/18 Range/Units 03:40 WBC (3.8-10.6) k/uL Neutrophils # (1.3-7.7) k/uL Glucose (74-99) mg/dL Plasma Lactic Acid Nelson (0.7-2.0) mmol/L Urine Opiates Screen Detected H (NotDetected) Ur Oxycodone Screen Detected H (NotDetected) Ur Amphetamines Screen Detected H (NotDetected) U Methamphetamines Scrn Detected H (NotDetected) Urine Cocaine Screen Detected H (NotDetected) Microbiology - Last 24 Hours (Table) 08/13/18 19:16 Gram Stain - Preliminary Arm - Right Wound Culture - Preliminary Assessment and Plan Assessment: 1-patient admitted hospital with sepsis in this patient who did have a fever and elevated white count source was right forearm abscess as results of IV drug use and will need to cover for gram-positive skin brook such as strep and Staphylococcus aureus 2-patient with penicillin ALLERGY that would limit the number of antibiotic safe to use (1) Abscess of forearm Current Visit: Yes Status: Acute Code(s): L02.419 - CUTANEOUS ABSCESS OF LIMB, UNSPECIFIED SNOMED Code(s): 77177070 (2) Sepsis Current Visit: Yes Status: Acute Code(s): A41.9 - SEPSIS, UNSPECIFIED ORGANISM SNOMED Code(s): 66733611 Plan: 1-vancomycin pharmacy to dose target trough of 15 while watching his kidney function and Vanco trough closely 2-await surgical drainage of this abscess further 3-gentle IV fluid we will follow up on clinical condition and cultures to further adjust medication if needed Thank you for this consultation will follow this patient along with you Time with Patient: Greater than 30
[2018-08-15] MEDS: MORPHINE SULFATE 4 MG/ML SYRINGE IVP PRN ×5 (01:39→17:52)
[2018-08-15] MEDS: VANCOMYCIN 1,250 MG in SODIUM CHLORIDE 0.9% 250 ML IVPB SCH ×4 (04:31→21:13)
[2018-08-15] MEDS: oxyCODONE-APAP 5-325MG 1 EACH TAB PO PRN ×3 (04:47→10:52)
[2018-08-15] MEDS: SODIUM CHLORIDE 0.9% 1,000 ML IV SCH ×3 (06:00→21:14)
[2018-08-15] MEDS: PANTOPRAZOLE 40 MG/10 ML VIAL IV SCH (08:13)
[2018-08-15] MEDS: METHADONE 10 MG TAB PO SCH (08:14)
[2018-08-15] MEDS: NICOTINE 14MG/24HR PATCH TRANSDERM SCH (08:14)
[2018-08-15] MEDS: ENOXAPARIN 40 MG/0.4 ML SYRINGE SQ SCH (08:16)
[2018-08-15 08:39] LABS: Basophils % (A) 0 %; Eosinophils # (A) 0.1 k/uL (0-0.7); Eosinophils % (A) 1 %; HCT 41.1 % (39.0-53.0); HGB 13.4 gm/dL (13.0-17.5); Lymphocytes # (A) 1.1 k/uL (1.0-4.8); Lymphocytes % (A) 9 %; MCH 30.4 pg (25.0-35.0); MCHC 32.6 g/dL (31.0-37.0); MCV 93.3 fL (80.0-100.0); Mean Platelet Volume 8.1; Monocytes # (A) 0.5 k/uL (0-1.0); Monocytes % (A) 4 %; Neutrophils % (A) 85 %; Platelet Count 275 k/uL (150-450); RDW 13.8 % (11.5-15.5); WBC 12.9 k/uL (3.8-10.6)
[2018-08-15 08:56] LABS: African American GFR (CKD) >90 (>60 ml/min/1.73 sqM)
[2018-08-15] MEDS ORDERED: METHADONE 5 MG TAB PO STA (10:34)
--- NOTE | 2018-08-15 10:38 | P.PN ---
Subjective Progress Note Date: 08/15/18 Principal diagnosis: Right forearm pain Patient was seen and examined. No acute events overnight. Patient reports significant improvement in his right forearm pain after his procedure. He denies any chest pain, shortness of breath or palpitations. No nausea or vomiting. No fever or chills. Objective - Vital Signs Vital signs: Vital Signs Temp 97.8 F 08/15/18 07:00 Pulse 71 08/15/18 07:00 Resp 16 08/15/18 07:00 BP 148/86 08/15/18 07:00 Pulse Ox 98 08/15/18 07:00 Intake & Output 08/14/18 08/15/18 08/15/18 18:59 06:59 18:59 Intake Total 240 950 Output Total 40 Balance 240 910 Weight 78.018 kg Intake: IV 950 Oral 240 Output: Estimated Blood Loss 40 Other: # Voids 3 1 - Exam General: [non toxic], [no distress], [appears at stated age] Derm: [warm], [dry] Head: [atraumatic], [normocephalic], [symmetric] Eyes: [EOMI], [no lid lag], [anicteric sclera] Mouth: [no lip lesion], [mucus membranes moist] Cardiovascular: [S1S2 reg], [no murmur], [positive DP pulse bilateral] Lungs: [CTA bilateral], [no rhonchi, no rales] , [no accessory muscle use] Abdominal: [soft], [ nontender to palpation], [no guarding], [no appreciable organomegaly] Ext: [no gross muscle atrophy], [no edema], [no contractures], [right forearm wrapped with dressing clean dry and intact, 2+ radial pulse] Neuro: [no focal neuro deficits] Psych: [Alert], [oriented], [appropriate affect] - Labs CBC & Chem 7: 08/15/18 07:31 08/15/18 07:31 Labs: Abnormal Lab Results - Last 24 Hours (Table) 08/15/18 08/15/18 Range/Units 07:31 07:31 WBC 12.9 H (3.8-10.6) k/uL Neutrophils # 11.0 H (1.3-7.7) k/uL Creatinine 0.60 L (0.66-1.25) mg/dL Microbiology - Last 24 Hours (Table) 08/14/18 20:20 Gram Stain - Preliminary Arm - Right Wound Culture - Preliminary 08/14/18 20:20 Anaerobic Culture - Preliminary Arm - Right 08/13/18 17:04 Blood Culture - Preliminary Blood No Growth after 24 hours Assessment and Plan Assessment: Assessment and Plan Sepsis due to right forearm abscess, I&D performed in the ED Suicidal ideation with history of depression IV drug abuse along with tobacco abuse Initially met septic criteria. Leukocytosis of 13.5-12.9, febrile at 100.9F, positive source of infection, lactic acid 2.3. Lactic acid within normal limits on repeat. Right forearm x-ray shows anterior soft tissue swelling. Blood culture preliminary negative at 24 hours. Patient underwent I&D yesterday with Dr. Cowan, no myonecrosis, no necrotizing fasciitis found. Plans: Pain management with Tylenol, Motrin, Toradol, Percocet. Add Morphine as needed. Started on vancomycin and levofloxacin IV for concerns of cellulitis. Follow wound cultures. Follow blood cultures. Follow general surgery consultation. Follow ID consultation. Continue normal saline at 150 mL per hour. Zofran as needed for nausea or vomiting. Plans: Continue sitter. Suicidal precautions. Continue psychiatry consult ation. Plans: Increase methadone. Offer nicotine patch. Patient admitted for sepsis secondary to right forearm abscess from IV drug use. I&D performed in the ED. Underwent I&D under Dr. Cowan yesterday. Start methadone and adequate pain management. Pending cultures. DC in 1-2 days.
--- NOTE | 2018-08-15 10:46 | P.PN ---
Subjective Progress Note Date: 08/15/18 CHIEF COMPLAINT: Right forearm cellulitis HISTORY OF PRESENT ILLNESS: The patient is a 43-year-old male postop day 1 status post drainage of right forearm abscess. He reports moderate improvement of his pain but still is sore. "Doc, I feel so much better. I can move my hand more!" ROS: No reports of nausea and vomiting. No bowel movements. No fevers or chills. No new chest pain. No productive sputum PHYSICAL EXAM: VITAL SIGNS: Reviewed CONSTITUTIONAL: Well developed and in no acute distress. EYES: Conjuctivae without sclera icterus. Extraocular movements grossly intact. HEAD, EARS, NOSE, THROAT: Moist buccal mucosa. Head is atraumatic, normocephalic. Hears conversational speech. No nasal drainage. NECK: Supple. No thyroidomegaly. RESPIRATORY: Non-labored respirations and equal bilateral excursions. CARDIOVASCULAR: Palpable 2+ radial pulses. Regular rate. Regular rhythm. ABDOMEN: Incisions clean dry and intact. Soft. No peritonitis. Minimal tenderness left upper quadrant. MUSCULOSKELETAL: Dressing is clean, dry, and intact of the right forearm. Moderate resolution of edema of the forearm. Sensation intact both hands. SKIN: Good skin turgor. Well perfused. NEUROLOGIC: Cranial nerves I through XII grossly intact. No focal or lateralizing signs. PSYCH: Appropriate affect. Alert and oriented to person, place and time. CLINCAL LABS: White blood cell count improved from 13,500 to 12,900 ASSESSMENT: 1. Right forearm cellulitis secondary to IVDA 2. Leukocytosis PLAN: 1. Dressing to be removed by me tomorrow. Wet to Dry with 4x4 gauze, saline, ABD and Coban re-useable dressing. 2. Continue hospitalization advised. Objective - Vital Signs Vital signs: Vital Signs Temp 97.8 F 08/15/18 07:00 Pulse 71 08/15/18 07:00 Resp 16 08/15/18 07:00 BP 148/86 08/15/18 07:00 Pulse Ox 98 08/15/18 07:00 Intake & Output 08/14/18 08/15/18 08/15/18 18:59 06:59 18:59 Intake Total 240 950 Output Total 40 Balance 240 910 Weight 78.018 kg Intake: IV 950 Oral 240 Output: Estimated Blood Loss 40 Other: # Voids 3 1 - Labs CBC & Chem 7: 08/15/18 07:31 08/15/18 07:31 Labs: Abnormal Lab Results - Last 24 Hours (Table) 08/15/18 08/15/18 Range/Units 07:31 07:31 WBC 12.9 H (3.8-10.6) k/uL Neutrophils # 11.0 H (1.3-7.7) k/uL Creatinine 0.60 L (0.66-1.25) mg/dL Microbiology - Last 24 Hours (Table) 08/14/18 20:20 Gram Stain - Preliminary Arm - Right Wound Culture - Preliminary 08/14/18 20:20 Anaerobic Culture - Preliminary Arm - Right 08/13/18 17:04 Blood Culture - Preliminary Blood No Growth after 24 hours Assessment and Plan (1) Suicidal ideation Current Visit: Yes Status: Acute Code(s): R45.851 - SUICIDAL IDEATIONS SNOMED Code(s): 5797391 (2) Drug abuse Current Visit: Yes Status: Acute Code(s): F19.10 - OTHER PSYCHOACTIVE SUBS TANCE ABUSE, UNCOMPLICATED SNOMED Code(s): 09748595 (3) Sepsis Current Visit: Yes Status: Acute Code(s): A41.9 - SEPSIS, UNSPECIFIED ORGANISM SNOMED Code(s): 19378274 (4) Cellulitis Current Visit: No Status: Acute Code(s): L03.90 - CELLULITIS, UNSPECIFIED SNOMED Code(s): 537580094 (5) Heroin abuse Current Visit: No Status: Acute Code(s): F11.10 - OPIOID ABUSE, UNCOMPLICATED SNOMED Code(s): 1787112 (6) Leukocytosis Current Visit: Yes Status: Acute Code(s): D72.829 - ELEVATED WHITE BLOOD CELL COUNT, UNSPECIFIED SNOMED Code(s): 294900500 (7) Fever Current Visit: Yes Status: Acute Code(s): R50.9 - FEVER, UNSPECIFIED SNOMED Code(s): 226159152
[2018-08-15] MEDS ORDERED: LORazepam 2 MG/ML INJ ONE (16:39)
--- NOTE | 2018-08-15 16:50 | P.PN ---
Progress Note - Text Progress Note Date: 08/15/18 Hospitalist Interval Note Called to see patient regarding acute shaking event. Patient seen and examined at bedside. Patient states that he is receiving vancomycin and felt chills and tremors starting. He then started having leg cramping and acute right sided groin pain. He denies any chest pain or shortness of breath. He is feeling anxious. He was started on methadone today. His last use of heroin was through snorting one day prior to admission and IV was 5 days prior to that. Vital signs reviewed General: non toxic, moderate distress, appears at stated age Derm: No erythema near IV infusion site, no erythema over chest or back, no hives, no excoriations warm, dry Head: atraumatic, normocephalic, symmetric Eyes: EOMI, no lid lag, anicteric sclera Mouth: no lip lesion, mucus membranes moist Cardiovascular: S1S2 reg, no murmur, positive posterior tibial pulse bilateral, Lungs: CTA bilateral, no rhonchi, no rales , no accessory muscle use Abdominal: soft, nontender to palpation, no guarding, no appreciable organomegaly Ext: Dressing in place over right forearm Testicular exam: Slight area of irritation of her left testicle, pain to palpation of right testicle, no masses felt. Neuro: CN II-XI grossly intact, no focal neuro deficits, and tremors which seemed to decrease as soon as patient was told he will receive Ativan Psych: Alert, oriented, appropriate affect Assessment/Plan: Acute tremors -Likely secondary to either withdrawal versus anxiety. Does not have any signs of ALLERGIC reactions such as changes in skin, shortness of breath, crackles, or chest tightness. We'll give IV Ativan 1 now. Acute onset right groin pain-check testicular ultrasound to rule out testicular torsion This is an update note for patient , for full note on 08/[address] see Progress note by Dr. Hernandez . There is no charge associated with this note.
[2018-08-15] MEDS ORDERED: LEVOFLOXACIN 750 MG TAB PO SCH (17:00)
--- NOTE | 2018-08-15 17:26 | US ---
EXAMINATION TYPE: US scrotum with doppler. Grayscale and color Doppler Duplex imaging performed of t he scrotum. DATE OF EXAM: 08/15/2018 COMPARISON: NONE CLINICAL HISTORY: testicular torsion. Pain in testicle and rt groin area. EXAM MEASUREMENTS: TESTICLES: Right Testicle: 2.8 x 1.6 x 3.0 cm Left Testicle: 4.0 x 1.7 x 3.0 cm EPIDIDYMIS HEAD: Right Epididymis: 1.0 x .8 x 1.0 cm Left Epididymis: .5 x .7 x 1.0 cm Doppler performed to assess for testicular vascularity; good bilateral color flow and waveforms are s een. There is no evidence of testicular torsion. Presence of hydroceles: No Presence of varicoceles: Appears dilated bilaterally. Right groin area of pain a few hypoechoic areas seen largest 1.5cm. IMPRESSION: No testicular torsion or mass. Mild bilateral varicocele. No free fluid. Ordinary appeari ng right inguinal lymph nodes measure up to 15 x 6 mm.
--- NOTE | 2018-08-15 21:38 | PN ---
PROGRESS NOTE DATE OF SERVICE: 08/15/2018. REASON FOR FOLLOWUP: Right hand abscess, cellulitis from IV drug use. INTERVAL HISTORY: The patient is currently afebrile. Pain is status post bedside drainage of the abscess. The patient tolerated the procedure. Still complaining of pain to the right thumb area. Denies having any chest pain or shortness of breath or cough. No abdominal pain. No diarrhea. PHYSICAL EXAMINATION: Blood pressure 149/95 with a pulse of 80, temperature 97.9. He is 97% on room air. General description is a middle aged male up in the room in no distress. Respiratory system: Unlabored breathing. Clear to auscultation anteriorly. HEART: S1, S2. Regular rate and rhythm. ABDOMEN: Soft, no tenderness. The right arm is currently dressed up. No obvious drainage on the dressing. LABS: Wound cultures are currently pending. Blood cultures so far negative. White count 12.9. DIAGNOSTIC IMPRESSION AND PLAN: Patient with right arm abscess from IV drug use, status post drainage of this abscess. Waiting for the culture to finalize. Continue the patient on vancomycin adjusting further based on the culture report. Continue supportive care. MMODL / IJN: [id number] /
[2018-08-16] MEDS: MORPHINE SULFATE 4 MG/ML SYRINGE IVP PRN ×4 (01:20→14:51)
[2018-08-16] MEDS: SODIUM CHLORIDE 0.9% 1,000 ML IV SCH ×3 (04:54→15:13)
[2018-08-16] MEDS ORDERED: VANCOMYCIN TROUGH DUE 1 EACH MISC MISCELLANE ONE (05:00)
[2018-08-16] MEDS: VANCOMYCIN 1,250 MG in SODIUM CHLORIDE 0.9% 250 ML IVPB SCH ×2 (05:34→14:51)
[2018-08-16 06:37] LABS: Basophils # (A) 0.1 k/uL (0-0.2); Basophils % (A) 1 %; Eosinophils # (A) 0.2 k/uL (0-0.7); Eosinophils % (A) 3 %; HGB 13.4 gm/dL (13.0-17.5); Lymphocytes # (A) 1.8 k/uL (1.0-4.8); Lymphocytes % (A) 21 %; MCH 31.5 pg (25.0-35.0); MCHC 33.5 g/dL (31.0-37.0); MCV 94.2 fL (80.0-100.0); Mean Platelet Volume 7.5; Monocytes # (A) 0.5 k/uL (0-1.0); Monocytes % (A) 5 %; Neutrophils % (A) 69 %; Platelet Count 259 k/uL (150-450); RBC 4.25 m/uL (4.30-5.90); RDW 14.2 % (11.5-15.5); WBC 8.6 k/uL (3.8-10.6)
[2018-08-16 06:54] LABS: African American GFR (CKD) >90 (>60 ml/min/1.73 sqM)
[2018-08-16] MEDS: NICOTINE 14MG/24HR PATCH TRANSDERM SCH (08:03)
[2018-08-16] MEDS: ENOXAPARIN 40 MG/0.4 ML SYRINGE SQ SCH (08:04)
[2018-08-16] MEDS: oxyCODONE-APAP 5-325MG 1 EACH TAB PO PRN ×2 (08:41→13:42)
--- NOTE | 2018-08-16 08:42 | P.PN ---
Subjective Progress Note Date: 08/16/18 Principal diagnosis: Right forearm pain Patient was seen and examined. No acute events overnight. Patient reports improvement in his right forearm pain, 5 out of 10 in severity at the site of incision. Yesterday, patient had an episode of whole body shaking chills along with bilateral groin pain. Testicular ultrasound was ordered which was within normal limits. Patient's symptoms have completely resolved this morning. He denies any chest pain, shortness of breath or palpitations. No nausea or vomiting. No fever or chills. Objective - Vital Signs Vital signs: Vital Signs Temp 98.2 F 08/16/18 07:00 Pulse 75 08/16/18 07:00 Resp 14 08/16/18 07:00 BP 142/83 08/16/18 07:00 Pulse Ox 99 08/16/18 07:00 Intake & Output 08/15/18 08/16/18 08/16/18 18:59 06:59 18:59 Intake Total 240 Balance 240 Intake: Oral 240 Other: Voiding Method Toilet # Voids 1 1 - Exam General: [non toxic], [no distress], [appears at stated age] Derm: [warm], [dry] Head: [atraumatic], [normocephalic], [symmetric] Eyes: [EOMI], [no lid lag], [anicteric sclera] Mouth: [no lip lesion], [mucus membranes moist] Cardiovascular: [S1S2 reg], [no murmur], [positive DP pulse bilateral] Lungs: [CTA bilateral], [no rhonchi, no rales] , [no accessory muscle use] Abdominal: [soft], [ nontender to palpation], [no guarding], [no appreciable organomegaly] Ext: [no gross muscle atrophy], [no edema], [no contractures], [right forearm wrapped with dressing clean dry and intact, 2+ radial pulse] Neuro: [no focal neuro deficits] Psych: [Alert], [oriented], [appropriate affect] - Labs CBC & Chem 7: 08/16/18 05:25 08/16/18 05:25 Labs: Abnormal Lab Results - Last 24 Hours (Table) 08/15/18 08/15/18 08/16/18 Range/Units 07:31 07:31 05:25 WBC 12.9 H (3.8-10.6) k/uL RBC 4.25 L (4.30-5.90) m/uL Neutrophils # 11.0 H (1.3-7.7) k/uL Creatinine 0.60 L (0.66-1.25) mg/dL Microbiology - Last 24 Hours (Table) 08/14/18 20:20 Gram Stain - Preliminary Arm - Right Wound Culture - Preliminary 08/13/18 19:16 Gram Stain - Preliminary Arm - Right Wound Culture - Preliminary Alpha Hemolytic Streptococcus 08/13/18 17:04 Blood Culture - Preliminary Blood No Growth after 48 hours Assessment and Plan Assessment: Assessment and Plan Sepsis due to right forearm abscess, I&D performed in the ED Bilateral groin pain Suicidal ideation with history of depression IV drug abuse along with tobacco abuse Initially met septic criteria. Leukocytosis of 13.5-12.9-within normal limits, febrile at 100.9F (afebrile over the last 24 hours), positive source of infection, lactic acid 2.3. Lactic acid within normal limits on repeat. Right forearm x-ray shows anterior soft tissue swelling. Blood culture preliminary negative at 48 hours. Patient underwent I&D yesterday with Dr. Cowan, no myonecrosis, no necrotizing fasciitis found. Wound culture shows alphahemolytic strep. Plans: Pain management with Tylenol, Motrin, Toradol, Percocet. Add Morphine as needed. Started on vancomycin and levofloxacin IV for concerns of cellulitis. Follow wound cultures. Follow blood cultures. Follow general surgery consultation. Follow ID consultation. Continue normal saline at 150 mL per hour. Zofran as needed for nausea or vomiting. Patient's leukocytosis has resolved, afebrile over the last 24 hours. Testicular ultrasound within normal limits. Plans: Symptoms have resolved. Evaluated by psychiatry, outpatient follow-up. Plans: Discontinue sitter as patient is not suicidal. Plans: Continue methadone. Offer nicotine patch. Patient admitted for sepsis secondary to right forearm abscess from IV drug use. I&D performed in the ED. Underwent I&D under Dr. Cowan 08/14. Pending cultures. DC today or tomorrow when we get culture sensitivities back.
[2018-08-16] MEDS ORDERED: METHADONE 5 MG TAB PO SCH (09:00)
[2018-08-16] MEDS ORDERED: PANTOPRAZOLE 40 MG TABLET PO SCH (09:00)
--- NOTE | 2018-08-16 11:02 | P.PN ---
Subjective Progress Note Date: 08/16/18 CHIEF COMPLAINT: Right forearm cellulitis HISTORY OF PRESENT ILLNESS: The patient is a 43-year-old male postop day 2 status post drainage of right forearm abscess. "I feel fine." Swelling of his right arm is almost completely gone. ROS: No reports of nausea and vomiting. No bowel movements. No fevers or chills. No new chest pain. No productive sputum PHYSICAL EXAM: VITAL SIGNS: Reviewed CONSTITUTIONAL: Well developed and in no acute distress. EYES: Conjuctivae without sclera icterus. Extraocular movements grossly intact. HEAD, EARS, NOSE, THROAT: Moist buccal mucosa. Head is atraumatic, normocephalic. Hears conversational speech. No nasal drainage. NECK: Supple. No thyroidomegaly. RESPIRATORY: Non-labored respirations and equal bilateral excursions. CARDIOVASCULAR: Palpable 2+ radial pulses. Regular rate. Regular rhythm. ABDOMEN: Incisions clean dry and intact. Soft. No peritonitis. Minimal tenderness left upper quadrant. MUSCULOSKELETAL: Edema along the right forearm almost completely resolved. Healthy bleeding tissues at the forearm. Cellulitis resolved. SKIN: Good skin turgor. Well perfused. NEUROLOGIC: Cranial nerves I through XII grossly intact. No focal or lateralizing signs. PSYCH: Appropriate affect. Alert and oriented to person, place and time. CLINCAL LABS: White blood cell count improved from 12,900 to normal today ASSESSMENT: 1. Right forearm cellulitis secondary to IVDA 2. Leukocytosis PLAN: 1. Dressing changes taught at bedside to patient and nursing. 2. Daily dressing changes. 3. Okay for discharge and follow up as needed. Objective - Vital Signs Vital signs: Vital Signs Temp 98.2 F 08/16/18 07:00 Pulse 75 08/16/18 07:00 Resp 14 08/16/18 07:00 BP 142/83 08/16/18 07:00 Pulse Ox 99 08/16/18 07:00 Intake & Output 08/15/18 08/16/18 08/16/18 18:59 06:59 18:59 Intake Total 240 476 Balance 240 476 Intake: Oral 240 476 Other: Voiding Method Toilet Toilet # Voids 1 1 - Labs CBC & Chem 7: 08/16/18 05:25 08/16/18 05:25 Labs: Abnormal Lab Results - Last 24 Hours (Table) 08/16/18 Range/Units 05:25 RBC 4.25 L (4.30-5.90) m/uL Microbiology - Last 24 Hours (Table) 08/14/18 20:20 Gram Stain - Preliminary Arm - Right Wound Culture - Preliminary 08/13/18 19:16 Gram Stain - Preliminary Arm - Right Wound Culture - Preliminary Alpha Hemolytic Streptococcus 08/13/18 17:04 Blood Culture - Preliminary Blood No Growth after 48 hours Assessment and Plan (1) Suicidal ideation Current Visit: Yes Status: Acute Code(s): R45.851 - SUICIDAL IDEATIONS SNOMED Code(s): 3306489 (2) Drug abuse Current Visit: Yes Status: Acute Code(s): F19.10 - OTHER PSYCHOACTIVE SUBSTANCE ABUSE, UNCOMPLICATED SNOMED Code(s): 29314068 (3) Sepsis Current Visit: Yes Status: Acute Code(s): A41.9 - SEPSIS, UNSPECIFIED ORGANISM SNOMED Code(s): 89507447 (4) Cellulitis Current Visit: No Status: Acute Code(s): L03.90 - CELLULITIS, UNSPECIFIED SNOMED Code(s): 828496335 (5) Heroin abuse Current Visit: No Status: Acute Code(s): F11.10 - OPIOID ABUSE, UNCOMPLICATED SNOMED Code(s): 4754369 (6) Leukocytosis Current Visit: Yes Status: Acute Code(s): D72.829 - ELEVATED WHITE BLOOD CELL COUNT, UNSPECIFIED SNOMED Code(s): 397146337 (7) Fever Current Visit: Yes Status: Acute Code(s): R50.9 - FEVER, UNSPECIFIED SNOMED Code(s): 764521128
[2018-08-16 14:35] VITALS: BP 129/78; PULSE 81; RESP 18; TEMP 97.4
[2018-08-16] MEDS ORDERED: ceFAZolin IN SWFI 2 GM/20 ML SYRINGE IVP ONE (15:00)
--- NOTE | 2018-08-16 18:29 | PN ---
PROGRESS NOTE DATE OF SERVICE: 08/16/2018. REASON FOR FOLLOWUP: Right arm abscess from IV drug use. INTERVAL HISTORY: The patient is currently afebrile, has been breathing comfortably. Pain and swelling to the right arm has improved. The patient denies having any chest pain, shortness of breath or cough. No abdominal pain. No diarrhea and now insisting on going home. PHYSICAL EXAMINATION: Blood pressure 129/78 with pulse of 81, temperature 97.4. He is 98% on room air. General description is a middle-aged male lying in bed in no distress. Respiratory system: Unlabored breathing. Clear to auscultation anteriorly. Heart S1, S2. Regular rate and rhythm. Abdomen soft, no tenderness. The right arm wound base looks clean with no slough tissue, surrounding swelling and redness improved. No drainage. LABS: White count 8.6 wound culture currently showing alpha hemolytic Streptococcus. DIAGNOSTIC IMPRESSION/PLAN: Patient with right arm abscess from IV drug use. Culture positive for Streptococcus. Patient is insisting on going home. The patient does have a PENICILLIN ALLERGY, however, has taken Keflex without any problem. He will be given a dose of cefazolin x1 now and sent home on oral Keflex 500 mg p.o. q.6 hours. Local wound care with Aquacel Silver packing to be changed q.48 hours and [facility] up [facility] . JANL / NGAN: [id number] /
== END 2018-08-16 16:20 | disposition home or self-care (01) | DRG 872 ==
LOC: EC 16:41 → 3NMEDONC 17:42 → 4SSUR 08-14 04:41
PROVIDERS: ADMIT Family Medicine; ATTEND Family Medicine
PROC: 0HBDXZZ Excision of Right Lower Arm Skin, External Approach (ICD-10-PCS; principal; 2018-08-14 13:00)
DX: A41.9 Sepsis, unspecified organism (principal); L02.413 Cutaneous abscess of right upper limb; L03.113 Cellulitis of right upper limb; R45.851 Suicidal ideations; R65.20 Severe sepsis without septic shock; F11.10 Opioid abuse, uncomplicated; F14.10 Cocaine abuse, uncomplicated; F15.10 Other stimulant abuse, uncomplicated; F17.210 Nicotine dependence, cigarettes, uncomplicated; F43.10 Post-traumatic stress disorder, unspecified; B19.20 Unspecified viral hepatitis C without hepatic coma; F10.10 Alcohol abuse, uncomplicated; R10.31 Right lower quadrant pain; R25.1 Tremor, unspecified; F41.9 Anxiety disorder, unspecified; F32.9 Major depressive disorder, single episode, unspecified; Z88.0 Allergy status to penicillin; Z79.899 Other long term (current) drug therapy; Z88.7 Allergy status to serum and vaccine; Z82.49 Family history of ischemic heart disease and other diseases of the circulatory system
CPT/HCPCS: 36415; 64415; 76870; 80053; 80202; 80306; 80320; 82075; 82565; 83605; 85025; 87040; 87070; 87075; 87205; 88304; 93975; 96361; 96365; 96366; 96367; 96375; 99285

== ENCOUNTER 2018-10-31 22:19 | Inpatient (IN) | payer BC ==
--- NOTE | 2018-10-31 23:28 | ED ---
General Adult HPI - General Source: patient, family Mode of arrival: ambulatory Limitations: no limitations <KenzieMiles D - Last Filed: 11/01/18 01:15> <Raffaele Ham - Last Filed: 11/01/18 12:04> - General Chief complaint: Psychiatric Symptoms Stated complaint: Mental Health Time Seen by Provider: 10/31/18 22:32 - History of Present Illness Initial comments: Dictation was produced using [employer] dictation software. please excuse any grammatical, word or spelling errors. Chief Complaint: 43-year-old male presents with suicidal ideation. History of Present Illness: Is a 43-year-old male who presents today with suicidal ideation. Patient states he's been depressed and does not want to live anymore. Patient states he tried to hurt himself by overdosing on heroin. He was discovered by one of his best friends who found him. Patient reports he took a gram and a half of heroin. Patient states he is a chronic illicit drug user. Patient reports that he's been really depressed and not eating. He states he hasn't really had a meal in the last week. He did have audible serial however this morning. Not a reliable historian at this time. The ROS documented in this emergency department record has been reviewed and confirmed by me. Those systems with pertinent positive or negative responses have been documented in the HPI. All other systems are other negative and/or noncontributory. PHYSICAL EXAM: General Impression: Alert and oriented x3, sleepy but arousable, no acute distress HEENT: Normocephalic atraumatic, extra-ocular movements intact, slightly miotic pupils measuring 2 mm, mucous membranes moist. Cardiovascular: Heart regular rate and rhythm, S1&S2 audible, no murmurs, rubs or gallops Chest: Lungs clear to auscultation bilaterally, no rhonchi, no wheeze, no rales Abdomen: Bowel sounds present, abdomen soft, non-tender, non-distended, no organ omegaly Musculoskeletal: Pulses present and equal in all extremities, no peripheral edema Motor: no focal deficits noted Neurological: CN II-XII grossly intact, no focal motor or sensory deficits noted Skin: Intact with no visualized rashes Psych: Normal affect and mood ED course: 43-year-old male presents with suicidal ideation. Patient is a drug user. He reports that he used gram and a half of heroin today. Patient's clinical examination is consistent with opiate toxidrome. He is however supporting his airway and breathing spontaneously at an adequate rate. Upon arrival shows heart rate of 118, rest of vital signs within acceptable limits.Patient is signed out to Dr. Martinez for follow-up of labs. Patient reevaluated at bedside. He still protecting his airway. He is still sleepy but arousable. He is tolerating by mouth at bedside. This point no clear indication for narcotic administration. He is placed on hall monitor. Pending labs. Patient also has consultation to EPS. EKG interpretation: Ventricular rate 89, normal sinus rhythm, MI interval 134, care 74, QTc 440. No MI prolongation, no QTC prolongation, no ST or T-wave changes noted. Overall, this EKG is unremarkable (Miles Espino) - Related Data Home Medications Medication Instructions Recorded Confirmed Buprenorphine HCl/Naloxone HCl 1 film SL TID 07/13/18 10/31/18 [Suboxone 8 mg-2 mg Sl Film] Allergies Allergy/AdvReac Type Severity Reaction Status Date / Time influenza virus vaccine, Allergy Rash/Hives Verified 10/31/18 22:40 specific Penicillins Allergy Anaphylaxis Verified 10/31/18 22:40 Review of Systems ROS Other: All systems not noted in ROS Statement are negative. <Miles Espino - Last Filed: 11/01/18 01:15> ROS Other: All systems not noted in ROS Statement are negative. <Raffaele Ham - Last Filed: 11/01/18 12:04> ROS Statement: Those systems with pertinent positive or pertinent negative responses have been documented in the HPI. Past Medical History Past Medical History: No Reported History Additional Past Medical History / Comment(s): alcohol abuse for years, hep c, drug addiction " all drugs" History of Any Multi-Drug Resistant Organisms: None Reported Past Surgical History: No Surgical Hx Reported Additional Past Surgical History / Comment(s): ganglion cyst. Past Anesthesia/Blood Transfusion Reactions: No Reported Reaction Past Psychological History: Anxiety, Bipolar, Depression, PTSD Smoking Status: Current every day smoker Past Alcohol Use History: Abuse Past Drug Use History: Cocaine, Heroin, IV Drug Use, Methamphetamine, Opiates, Prescription Drug Abuse - Past Family History Father Family Medical History: Myocardial Infarction ([place]) Mother Additional Family Medical History / Comment(s): MS <Miles Espino - Last Filed: 11/01/18 01:15> General Exam Limitations: no limitations <LamrogerMatiasMlies D - Last Filed: 11/01/18 01:15> Course Vital Signs 10/31/18 11/01/18 22:24 01:20 Temperature 98.4 F 98.6 F Pulse Rate 118 H 92 Respiratory 18 18 Rate Blood Pressure 136/78 132/76 O2 Sat by Pulse 97 100 Oximetry Medical Decision Making - Lab Data Result diagrams: 10/31/18 22:49 11/01/18 01:13 <Raffaele Ham - Last Filed: 11/01/18 12:04> - Medical Decision Making I filled out a clinical certification on this patient. (Raffaele Ham) - Lab Data Lab Results 10/31/18 10/31/18 11/01/18 Range/Units 22:49 22:49 01:13 WBC 6.1 (3.8-10.6) k/uL RBC 4.58 (4.30-5.90) m/uL Hgb 14.4 (13.0-17.5) gm/dL Hct 43.6 (39.0-53.0) % MCV 95.2 (80.0-100.0) fL MCH 31.4 (25.0-35.0) pg MCHC 32.9 (31.0-37.0) g/dL RDW 12.7 (11.5-15.5) % Plt Count 304 (150-450) k/uL Neutrophils % 54 % Lymphocytes % 27 % Monocytes % 7 % Eosinophils % 6 % Basophils % 3 % Neutrophils # 3.3 (1.3-7.7) k/uL Lymphocytes # 1.7 (1.0-4.8) k/uL Monocytes # 0.4 (0-1.0) k/uL Eosinophils # 0.4 (0-0.7) k/uL Basophils # 0.2 (0-0.2) k/uL PT 10.1 (9.0-12.0) sec INR 0.9 (<1.2) Sodium 143 (137-145) mmol/L Potassium 4.2 (3.5-5.1) mmol/L Chloride 110 H (98-107) mmol/L Carbon Dioxide 28 (22-30) mmol/L Anion Gap 5 mmol/L BUN 11 (9-20) mg/dL Creatinine 0.79 (0.66-1.25) mg/dL Est GFR (CKD-EPI)AfAm >90 (>60 ml/min/1.73 sqM) Est GFR (CKD-EPI)NonAf >90 (>60 ml/min/1.73 sqM) Glucose 101 H (74-99) mg/dL Calcium 8.7 (8.4-10.2) mg/dL Total Bilirubin 0.2 (0.2-1.3) mg/dL AST 149 H (17-59) U/L ALT 175 H (21-72) U/L Alkaline Phosphatase 56 (38-126) U/L Total Protein 6.9 (6.3-8.2) g/dL Albumin 3.7 (3.5-5.0) g/dL Salicylates <1.0 mg/dL Urine Opiates Screen (NotDetected) Ur Oxycodone Screen (NotDetected) Urine Methadone Screen (NotDetected) Ur Propoxyphene Screen (NotDetected) Acetaminophen <10.0 ug/mL Ur Barbiturates Screen (NotDetected) U Tricyclic Antidepress (NotDetected) Ur Phencyclidine Scrn (NotDetected) Ur Amphetamines Screen (NotDetected) U Methamphetamines Scrn (NotDetected) U Benzodiazepines Scrn (NotDetected) Urine Cocaine Screen (NotDetected) U Marijuana (THC) Screen (NotDetected) Serum Alcohol <10 mg/dL 11/01/18 Range/Units 01:18 WBC (3.8-10.6) k/uL RBC (4.30-5.90) m/uL Hgb (13.0-17.5) gm/dL Hct (39.0-53.0) % MCV (80.0-100.0) fL MCH (25.0-35.0) pg MCHC (31.0-37.0) g/dL RDW (11.5-15.5) % Plt Count (150-450) k/uL Neutrophils % % Lymphocytes % % Monocytes % % Eosinophils % % Basophils % % Neutrophils # (1.3-7.7) k/uL Lymphocytes # (1.0-4.8) k/uL Monocytes # (0-1.0) k/uL Eosinophils # (0-0.7) k/uL Basophils # (0-0.2) k/uL PT (9.0-12.0) sec INR (<1.2) Sodium (137-145) mmol/L Potassium (3.5-5.1) mmol/L Chloride (98-107) mmol/L Carbon Dioxide (22-30) mmol/L Anion Gap mmol/L BUN (9-20) mg/dL Creatinine (0.66-1.25) mg/dL Est GFR (CKD-EPI)AfAm (>60 ml/min/1.73 sqM) Est GFR (CKD-EPI)NonAf (>60 ml/min/1.73 sqM) Glucose (74-99) mg/dL Calcium (8.4-10.2) mg/dL Total Bilirubin (0.2-1.3) mg/dL AST (17-59) U/L ALT (21-72) U/L Alkaline Phosphatase (38-126) U/L Total Protein (6.3-8.2) g/dL Albumin (3.5-5.0) g/dL Salicylates mg/dL Urine Opiates Screen Detected H (NotDetected) Ur Oxycodone Screen Not Detected (NotDetected) Urine Methadone Screen Not Detected (NotDetected) Ur Propoxyphene Screen Not Detected (NotDetected) Acetaminophen ug/mL Ur Barbiturates Screen Not Detected (NotDetected) U Tricyclic Antidepress Not Detected (NotDetected) Ur Phencyclidine Scrn Not Detected (NotDetected) Ur Amphetamines Screen Detected H (NotDetected) U Methamphetamines Scrn Detected H (NotDetected) U Benzodiazepines Scrn Not Detected (NotDetected) Urine Cocaine Screen Not Detected (NotDetected) U Marijuana (THC) Screen Not Detected (NotDetected) Serum Alcohol mg/dL Disposition <Miles Espino - Last Filed: 11/01/18 01:15> Time of Disposition: 12:04 <Raffaele Ham - Last Filed: 11/01/18 12:04> Clinical Impression: Suicidal ideation, Polysubstance abuse Disposition: TRANSFER TO PSYCH HOSP/UNIT Referrals: Armando Melendrez MD [Primary Care Provider] - 1-2 days
[2018-11-01 01:19] LABS: INR 0.9 (<1.2); Prothrombin Time 10.1 sec (9.0-12.0)
[2018-11-01 01:22] LABS: Basophils # (A) 0.2 k/uL (0-0.2); Basophils % (A) 3 %; Eosinophils # (A) 0.4 k/uL (0-0.7); Eosinophils % (A) 6 %; HCT 43.6 % (39.0-53.0); HGB 14.4 gm/dL (13.0-17.5); Lymphocytes # (A) 1.7 k/uL (1.0-4.8); Lymphocytes % (A) 27 %; MCH 31.4 pg (25.0-35.0); MCHC 32.9 g/dL (31.0-37.0); MCV 95.2 fL (80.0-100.0); Mean Platelet Volume 6.8; Monocytes # (A) 0.4 k/uL (0-1.0); Monocytes % (A) 7 %; Neutrophils # (A) 3.3 k/uL (1.3-7.7); Neutrophils % (A) 54 %; Platelet Count 304 k/uL (150-450); RBC 4.58 m/uL (4.30-5.90); RDW 12.7 % (11.5-15.5); WBC 6.1 k/uL (3.8-10.6)
[2018-11-01 01:32] LABS: ALT 175 U/L (21-72); AST 149 U/L (17-59); Acetaminophen <10.0 ug/mL; African American GFR (CKD) >90 (>60 ml/min/1.73 sqM); Albumin 3.7 g/dL (3.5-5.0); Alcohol <10 mg/dL; Alkaline Phosphatase 56 U/L (38-126); Anion Gap 5 mmol/L; Blood Urea Nitrogen 11 mg/dL (9-20); Calcium 8.7 mg/dL (8.4-10.2); Carbon Dioxide 28 mmol/L (22-30); Chloride 110 mmol/L (98-107); Glucose 101 mg/dL (74-99); Potassium 4.2 mmol/L (3.5-5.1); Salicylate <1.0 mg/dL; Sodium 143 mmol/L (137-145); Total Bilirubin 0.2 mg/dL (0.2-1.3); Total Protein 6.9 g/dL (6.3-8.2)
[2018-11-01 01:42] LABS: Amphetamine Screen,Urine Detected (NotDetected); Barbiturate Screen,Urine Not Detected (NotDetected); Benzodiazepines Screen,Urine Not Detected (NotDetected); Cocaine Screen,Urine Not Detected (NotDetected); Methadone Screen, Urine Not Detected (NotDetected); Opiate Screen,Urine Detected (NotDetected); Oxycodone Screen, Urine Not Detected (NotDetected); Phencyclidine Screen,Urine Not Detected (NotDetected); Tricyclic Antidepressant,Urine Not Detected (NotDetected); Urn Cannabinoid Scrn Not Detected (NotDetected)
[2018-11-02] MEDS ORDERED: LORazepam 2 MG/ML INJ IM STA (00:22)
[2018-11-02] MEDS ORDERED: MAGNESIUM HYDROXIDE 2,400 MG/10 ML CUP PO PRN (13:58)
[2018-11-02] MEDS ORDERED: ZIPRASIDONE 20 MG VIAL IM PRN (13:58)
[2018-11-02] MEDS ORDERED: MAG HYDROX/AL HYDROX/SIMETH 30 ML CUP PO PRN (13:58)
[2018-11-02] MEDS ORDERED: LOPERAMIDE 2 MG CAP PO PRN (14:00)
[2018-11-02] MEDS ORDERED: ONDANSETRON 4 MG TAB PO PRN (14:00)
[2018-11-02 14:41] VITALS: BMI 22.6
[2018-11-02] MEDS: NICOTINE 21MG/24HR PATCH TRANSDERM SCH (15:03)
[2018-11-02] MEDS: ACETAMINOPHEN TAB 325 MG TAB PO PRN (15:06)
[2018-11-02] MEDS: LORazepam 1 MG TAB PO PRN ×2 (15:06→22:53)
[2018-11-03] MEDS: ACETAMINOPHEN TAB 325 MG TAB PO PRN (08:46)
[2018-11-03] MEDS: LORazepam 1 MG TAB PO PRN (08:46)
[2018-11-03] MEDS: NICOTINE 21MG/24HR PATCH TRANSDERM SCH (08:47)
[2018-11-03] MEDS ORDERED: NICOTINE 14MG/24HR PATCH TRANSDERM SCH (09:00)
[2018-11-03] MEDS ORDERED: DICYCLOMINE 20 MG TAB PO PRN (12:19)
[2018-11-03] MEDS ORDERED: LOPERAMIDE 2 MG CAP PO PRN (12:21)
[2018-11-03] MEDS: hydrOXYzine PAMOATE 25 MG CAP PO PRN ×2 (12:28→19:05)
[2018-11-03] MEDS: cloNIDine HCL 0.1 MG TAB PO PRN ×2 (12:28→19:14)
[2018-11-03] MEDS: IBUPROFEN 600 MG TAB PO PRN ×2 (12:28→19:05)
[2018-11-03 13:12] LABS: Hemoglobin A1C 5.1 % (4.0-6.0)
--- NOTE | 2018-11-03 13:24 | P.HP ---
Psychiatric H&P - . H&P Date: 11/03/18 History & Physical: Allergies Allergy/AdvReac Type Severity Reaction Status Date / Time influenza virus vaccine, Allergy Rash/Hives Verified 10/31/18 22:40 specific Penicillins Allergy Anaphylaxis Verified 10/31/18 22:40 Vital Signs Temp 98.4 F 11/03/18 03:59 Pulse 109 H 11/03/18 12:29 Resp 18 11/03/18 03:59 BP 142/103 11/03/18 12:29 Pulse Ox 98 11/02/18 14:13 Laboratory Last Values WBC 6.1 k/uL (3.8-10.6) 10/31/18 22:49 RBC 4.58 m/uL (4.30-5.90) 10/31/18 22:49 Hgb 14.4 gm/dL (13.0-17.5) 10/31/18 22:49 Hct 43.6 % (39.0-53.0) 10/31/18 22:49 MCV 95.2 fL (80.0-100.0) 10/31/18 22:49 MCH 31.4 pg (25.0-35.0) 10/31/18 22:49 MCHC 32.9 g/dL (31.0-37.0) 10/31/18 22:49 RDW 12.7 % (11.5-15.5) 10/31/18 22:49 Plt Count 304 k/uL (150-450) 10/31/18 22:49 Neutrophils % 54 % 10/31/18 22:49 Lymphocytes % 27 % 10/31/18 22:49 Monocytes % 7 % 10/31/18 22:49 Eosinophils % 6 % 10/31/18 22:49 Basophils % 3 % 10/31/18 22:49 Neutrophils # 3.3 k/uL (1.3-7.7) 10/31/18 22:49 Lymphocytes # 1.7 k/uL (1.0-4.8) 10/31/18 22:49 Monocytes # 0.4 k/uL (0-1.0) 10/31/18 22:49 Eosinophils # 0.4 k/uL (0-0.7) 10/31/18 22:49 Basophils # 0.2 k/uL (0-0.2) 10/31/18 22:49 PT 10.1 sec (9.0-12.0) 10/31/18 22:49 INR 0.9 (<1.2) 10/31/18 22:49 Sodium 143 mmol/L (137-145) 11/01/18 01:13 Potassium 4.2 mmol/L (3.5-5.1) 11/01/18 01:13 Chloride 110 mmol/L (98-107) H 11/01/18 01:13 Carbon Dioxide 28 mmol/L (22-30) 11/01/18 01:13 Anion Gap 5 mmol/L 11/01/18 01:13 BUN 11 mg/dL (9-20) 11/01/18 01:13 Creatinine 0.79 mg/dL (0.66-1.25) 11/01/18 01:13 Est GFR (CKD-EPI)AfAm >90 (>60 ml/min/1.73 sqM) 11/01/18 01:13 Est GFR (CKD-EPI)NonAf >90 (>60 ml/min/1.73 sqM) 11/01/18 01:13 Glucose 101 mg/dL (74-99) H 11/01/18 01:13 Calcium 8.7 mg/dL (8.4-10.2) 11/01/18 01:13 Total Bilirubin 0.2 mg/dL (0.2-1.3) 11/01/18 01:13 AST 149 U/L (17-59) H 11/01/18 01:13 ALT 175 U/L (21-72) H 11/01/18 01:13 Alkaline Phosphatase 56 U/L (38-126) 11/01/18 01:13 Total Protein 6.9 g/dL (6.3-8.2) 11/01/18 01:13 Albumin 3.7 g/dL (3.5-5.0) 11/01/18 01:13 Triglycerides 230 mg/dL (<150) H 11/01/18 01:13 Cholesterol 118 mg/dL (<200) 11/01/18 01:13 LDL Cholesterol, Calc 40 mg/dL (0-99) 11/01/18 01:13 HDL Cholesterol 32 mg/dL (40-60) L 11/01/18 01:13 TSH 0.795 mIU/L (0.465-4.680) 11/01/18 01:13 Salicylates <1.0 mg/dL 11/01/18 01:13 Urine Opiates Screen Detected (NotDetected) H 11/01/18 01:18 Ur Oxycodone Screen Not Detected (NotDetected) 11/01/18 01:18 Urine Methadone Screen Not Detected (NotDetected) 11/01/18 01:18 Ur Propoxyphene Screen Not Detected (NotDetected) 11/01/18 01:18 Acetaminophen <10.0 ug/mL 11/01/18 01:13 Ur Barbiturates Screen Not Detected (NotDetected) 11/01/18 01:18 U Tricyclic Antidepress Not Detected (NotDetected) 11/01/18 01:18 Ur Phencyclidine Scrn Not Detected (NotDetected) 11/01/18 01:18 Ur Amphetamines Screen Detected (NotDetected) H 11/01/18 01:18 U Methamphetamines Scrn Detected (NotDetected) H 11/01/18 01:18 U Benzodiazepines Scrn Not Detected (NotDetected) 11/01/18 01:18 Urine Cocaine Screen Not Detected (NotDetected) 11/01/18 01:18 U Marijuana (THC) Screen Not Detected (NotDetected) 11/01/18 01:18 Serum Alcohol <10 mg/dL 11/01/18 01:13 11/03/18 13:11 IDENTIFYING DATA: Patient is a 43-year-old male who currently is homeless, is however 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 Patient was calm and directable during the interview was agreeable to speak to staff writer. Patient states that he was feeling an increase in his depression for the past several weeks and claims that he is had a stressor at home where he was working hard to get his back into the relationship however states that his recently left him for another man and states that this caused him to relapse back on drugs. He states that "I lost everything". Patient claims that about a year ago he relapsed back on fentanyl using approximately 1 g a day. He also states that he's been using other drugs including cocaine half gram a day math half gram a day and recently alcohol a fifth of vodka prior to coming to the hospital. He states that this recent drug use has been going on for the past to 3 months. He states that his mood is "horrible" and described feeling like he wanted to end his life prior to coming in the hospital. He admits to bad anxiety and poor sleep at night. Patient denies any suicidal or homicidal ideations intent or plan. At this time patient denies any auditory or visual hallucinations. Patient denies any flight of ideas racing thoughts and increased in goal directed behavior. Patient mentioned several times that he is going through withdrawals and appears to have rhinorrhea and was complaining of aches and pains over his body in his joints and stated that his anxiety was high. Patient admits to smoking cigarettes daily. PAST PSYCHIATRIC HISTORY: Patient states that this is his third admission to a mental health unit and states that the previous admissions were all for drug related problems. He claims that he has been suffering from depression and polysubstance use. He denies any outpatient psychiatric follow-up and stated that he attempted to commit suicide 2 times in the past. PMH: He admits to chronic back pain ALLERGIES: As per EMR CHEMICAL DEPENDENCY HISTORY: As per HPI FAMILY PSYCHIATRIC/SUBSTANCE USE HISTORY: He states that his grandfather was an alcoholic and committed suicide. He also states that his other grandfather was an alcoholic. SOCIAL HISTORY: Patient states that he was born and raised in [place] and his family moved to [facility] where he grew up. He states that he finished high school and completed different trade schools. 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 He claims that he is homeless and however now is and has 1 kid. MENTAL STATUS EXAM: General Appearance: Patient appears to be older than stated age is alert, pleas ant, and cooperative. Patient appears to have poor hygiene and poor grooming. Patient is wearing street clothing Behavior: Patient is calmly seated without any agitated behavior. Patient appears to be in mild distress secondary to withdrawal. Speech: Patient's speech is fluent and nonpressured. Mood/Affect: Patient reports their mood is depressed, affect is congruent and constricted. Suicidality/Homicidality: Patient denies having any suicidal or homicidal ideation intent or plan. Perceptions: Patient denies any auditory or visual hallucinations. Though content/process: There is no evidence of any delusional thought content and thought process is linear and goal-directed. Memory and concentration: AOX3, grossly intact for the purposes of this session. Can spell "WORLD" backwards Judgment and insight: Poor STRENGTHS/WEAKNESSES: Strength is that patient has a good work history and is resilient. Weaknesses the patient has chronic substance use history. INTELLECT: Average IMPRESSIONS: Depressive disorder unspecified rule out secondary to polysubstance use Opiate use disorder, currently in withdrawal Amphetamine/stimulant use disorder, currently in withdrawal Cocaine use disorder, currently in withdrawal Nicotine dependence. PLAN: -Patient is admitted under voluntary status to MHU for stabilization of psychiatric symptoms and safety. Patient signed adult voluntary form and medication consent and is placed in patient's chart. -Medications : Will start patient on symptomatic medications when necessary for withdrawal symptoms including clonidine 0.1 mg every 8 hours, dicyclomine for stomach cramps/upset stomach, loperamide for diarrhea, ibuprofen and acetaminophen 4 pain. Patient also started on Vistaril 25 mg every 6 hours when necessary for anxiety. Started on trazodone 100 mg nightly for mood and insomnia. -Ativan IM PRN for agitation/aggression -Patient was counselled on substance abuse and desired to cut back on use. Patient expressed desire to go to rehab as he states that he has never been before -Patient was informed of the risks, benefits and side effects of the medication and patient verbally consented to taking the medications. Patient signed med consent form and was placed in chart. -NRT -nicotine patch - on board for discharge planning 11/03/18 13:15
[2018-11-03] MEDS: traZODone HCL 100 MG TAB PO SCH (20:51)
[2018-11-03] MEDS: LORazepam 2 MG/ML INJ IM PRN (23:05)
--- NOTE | 2018-11-04 00:17 | P.CONS ---
History of Present Illness - Reason for Consult Consult date: 11/03/18 Medical management Requesting physician: Richard Maria - Chief Complaint Suicidal - History of Present Illness Consultation: This is a 43-year-old patient of Dr. gudino. Patient presented to the ER. Patient's been depressed not feeling like living anymore. Patient overdosed on about 1 g of IV heroine. He was found by his friend. Patient is on multiple drugs currently and in the past. Patient also smoker. Patient only had some withdrawal symptoms which is better now. Appetite is fair. Bowel sounds are okay. Does get some reflux symptoms. Does not sleep well. Patient's reasonably well employed. Able to get about. Rather depressed suicidal.) Admitted for the same. Review of systems: GEN.: Tired EYES: None HEENT: None NECK: None RESPIRATORY: None CARDIOVASCULAR: None GASTROINTESTINAL: None GENITOURINARY: None MUSCULOSKELETAL: None LYMPHATICS: None HEMATOLOGICAL: None PSYCHIATRY: Suicidal] NEUROLOGICAL: None Social history: Patient was drinking heavy alcohol to about 3 years ago. Has has had multiple recreational drugs. Smokes but smokes one to 2 packs a day. 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 Physical examination: VITAL SIGNS: 98.4, 83, 18, 141/98, GENERAL: Average built, sitting up, comfortable. EYES: Pupils equal. Conjunctiva normal. HEENT: External appearance of nose and ears normal, oral cavity grossly normal. NECK: JVD not raised; masses not palpable. HEART: First and second heart sounds are normal; no edema. LUNGS: Respiratory rate normal; clear to auscultation. ABDOMEN: Soft, nontender, liver spleen not palpable, no masses palpable. PSYCH: [Alert and oriented x3; mood and affect anxious. NEUROLOGICAL: Cranial nerves grossly intact; no facial asymmetry, power and sensation grossly intact. LYMPHATICS: No lymph nodes palpable in the axilla and neck INVESTIGATIONS, reviewed in the clinical context: White count 6.1 and hemoglobin 14.4 potassium 4.2 creatinine 0.79 -AST 149 ALT 175 Assessment: -Acute overdose of IV heroin with intentional suicidal -Chronic nicotine dependence patient cigarette smoker -Multiple recreational drug use -Reflux -Chronic insomnia - Plan: Care was discussed with the patient. Advised against the use of recreational drugs. Patient did use and nicotine patch. Use Pepcid 20 mg twice a day. Follow with family doctor. Thank you Dr. Maria Past Medical History Past Medical History: Liver Disease Additional Past Medical History / Comment(s): alcohol abuse for years, hep c, drug addiction " all drugs" History of Any Multi-Drug Resistant Organisms: None Reported Past Surgical History: No Surgical Hx Reported Additional Past Surgical History / Comment(s): ganglion cyst. Past Anesthesia/Blood Transfusion Reactions: No Reported Reaction Past Psychological History: Anxiety, Bipolar, Depression, PTSD Smoking Status: Current every day smoker Past Alcohol Use History: Abuse Past Drug Use History: Cocaine, Heroin, IV Drug Use, Methamphetamine, Opiates, Prescription Drug Abuse - Past Family History Father Family Medical History: Myocardial Infarction ([place]) Mother Additional Family Medical History / Comment(s): MS Medications and Allergies Home Medications Medication Instructions Recorded Confirmed Type Buprenorphine HCl/Naloxone HCl 1 film SL TID 07/13/18 10/31/18 History [Suboxone 8 mg-2 mg Sl Film] Allergies Allergy/AdvReac Type Severity Reaction Status Date / Time influenza virus vaccine, Allergy Rash/Hives Verified 10/31/18 22:40 specific Penicillins Allergy Anaphylaxis Verified 10/31/18 22:40 Physical Exam Vitals: Vital Signs Temp Pulse Pulse Resp BP BP Pulse Ox 11/03/18 03:59 98.4 F 83 18 141/98 11/02/18 14:13 98.0 F 84 18 153/96 98 11/02/18 14:09 98.0 F 84 18 153/96 98 11/02/18 13:00 98.0 F 84 18 153/96 98 11/02/18 09:52 134/97 Results CBC & Chem 7: 10/31/18 22:49 11/01/18 01:13 Labs: Abnormal Lab Results - Last 24 Hours (Table) 11/01/18 Range/Units 01:13 Triglycerides 230 H (<150) mg/dL HDL Cholesterol 32 L (40-60) mg/dL
[2018-11-04] MEDS: IBUPROFEN 600 MG TAB PO PRN (04:50)
[2018-11-04] MEDS: cloNIDine HCL 0.1 MG TAB PO PRN ×2 (04:51→19:55)
[2018-11-04] MEDS: hydrOXYzine PAMOATE 25 MG CAP PO PRN ×2 (04:51→19:55)
[2018-11-04] MEDS: LORazepam 2 MG/ML INJ IM PRN ×2 (06:54→21:11)
[2018-11-04] MEDS: NICOTINE 21MG/24HR PATCH TRANSDERM SCH (08:33)
--- NOTE | 2018-11-04 12:12 | P.PN ---
Progress Note - Text Progress Note Date: 11/04/18 Interval History: Patient was seen today in his room and was covered with blankets ever was agre eable to speak to television script writer. He states that he had a "rough night last night" however states that he is feeling much better as he is been taking his PRN medications for withdrawal. He states that the trazodone did help him with sleep however he was continuing to have nasal congestion and stomach cramps. Patient states that his chronic pain and diarrhea has been improving on the medications and states that he is taking clonidine as wall for opiate withdrawal. He states that his mood is "optimistic" and claims that his anxiety is mild. Patient continues to endorse wanting to go to rehab after hospitalization and patient was encouraged to go to groups to work on coping skills and distress tolerance. At this time patient denies any suicidal or homical ideations, intent or plan. Patient denies any auditory, visual hallucinations and denies any paranoia or delusions. Patient denies any side effects from the medications and has been compliant with meds. Mental Status Exam: General Appearance: Patient appears to be older than stated age is alert, pleasant, and cooperative. Patient appears to have poor hygiene and poor grooming. Patient is wearing street clothing Behavior: Patient is calmly seated without any agitated behavior. Patient appears to be in moderate distress secondary to withdrawal. Speech: Patient's speech is fluent and nonpressured. Mood/Affect: Patient reports their mood is improving, affect is congruent and constricted. Suicidality/Homicidality: Patient denies having any suicidal or homicidal ideation intent or plan. Perceptions: Patient denies any auditory or visual hallucinations. Though content/process: There is no evidence of any delusional thought content and thought process is linear and goal-directed. Memory and concentration: AOX3, grossly intact for the purposes of this session. 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 Plan: -Patient continues to meet criteria for inpatient psychiatric admission for symptom stabilization and safety. Patient has signed adult voluntary form and medication consent and is placed in patient's chart. -Medications: Will continue with symptomatic medications PRN for withdrawal symptoms including clonidine 0.1 mg every 8 hours, dicyclomine for stomach cramps/upset stomach, loperamide for diarrhea, ibuprofen and acetaminophen 4 pain. We'll also continue Vistaril 25 mg every 6 hours when necessary for anxiety. Continue with trazodone 100 mg nightly for mood and insomnia. -When necessary Ativan for agitation/aggression. -NRT -nicotine patch -SW on board for discharge planning. Patient continues to be interested in substance use rehab and will be given the number to call in for intake.
[2018-11-04] MEDS: traZODone HCL 100 MG TAB PO SCH (21:05)
[2018-11-05] MEDS: NICOTINE 21MG/24HR PATCH TRANSDERM SCH (08:10)
[2018-11-05] MEDS: ACETAMINOPHEN TAB 325 MG TAB PO PRN (08:12)
[2018-11-05] MEDS: hydrOXYzine PAMOATE 25 MG CAP PO PRN ×2 (08:12→15:14)
[2018-11-05] MEDS: LORazepam 2 MG/ML INJ IM PRN ×2 (08:37→21:14)
--- NOTE | 2018-11-05 10:45 | P.PN ---
Progress Note - Text Progress Note Date: 11/05/18 Interval History: Patient was seen today on drinking the hallway speaking to another patient and was agreeable to speak to medical underwriter. He states that he had a better night last night however states that he did need the Ativan shot after he took the trazodone to go to sleep. He states that the trazodone is giving him restless leg symptoms which the Ativan helps with. He also claims that his withdrawal symptoms are improving symptomatically and feels loss less congested last diarrhea and improved pain control. Patient continues to be optimistic and future oriented regards to treatment and getting into rehab however state that he was not able to get in touch with him yesterday due to being on hold and also states that his insurance company is not allowing him to go to rehab directly and that he needs to go through "detox". He states that his mood is improving and claims that his anxiety is mild. He is going to groups to work on coping skills and distress tolerance. At this time patient denies any suicidal or homical ideations, intent or plan. Patient denies any auditory, visual h allucinations and denies any paranoia or delusions. Patient denies any side effects from the medications and has been compliant with meds. Mental Status Exam: General Appearance: Patient appears to be older than stated age is alert, pleasant, and cooperative. Patient appears to have poor hygiene and poor grooming. Patient is wearing street clothing Behavior: Patient is calmly seated without any agitated behavior. Speech: Patient's speech is fluent and nonpressured. Mood/Affect: Patient reports their mood is improving, affect is congruent Suicidality/Homicidality: Patient denies having any suicidal or homicidal ideation intent or plan. Perceptions: Patient denies any auditory or visual hallucinations. Though content/process: There is no evidence of any delusional thought content and thought process is linear and goal-directed. Memory and concentration: AOX3, grossly intact for the purposes of this session. 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 Plan: -Patient continues to meet criteria for inpatient psychiatric admission for symptom stabilization and safety. Patient has signed adult voluntary form and medication consent and is placed in patient's chart. -Medications: Will continue with symptomatic medications PRN for withdrawal symptoms including clonidine 0.1 mg every 8 hours, dicyclomine for stomach cr amps/upset stomach, loperamide for diarrhea, ibuprofen and acetaminophen 4 pain. We'll also continue Vistaril 25 mg every 6 hours when necessary for anxiety. We'll discontinue trazodone at this time as it may be causing restless leg symptoms. Will start patient on doxepin 10 mg daily at bedtime for insomnia/mood. Will also start melatonin 5 mg nightly for sleep -When necessary Ativan for agitation/aggression. -NRT -nicotine patch -SW on board for discharge planning. Patient continues to be interested in substance use rehab and will attempt to get patient an intake appointment
[2018-11-05] MEDS: cloNIDine HCL 0.1 MG TAB PO PRN (15:14)
[2018-11-05] MEDS: IBUPROFEN 600 MG TAB PO PRN (15:14)
[2018-11-05] MEDS ORDERED: DOXEPIN 10 MG CAP PO SCH (21:00)
[2018-11-05] MEDS ORDERED: MELATONIN 5 MG TABLET PO SCH (21:00)
[2018-11-06 06:55] VITALS: BP 117/81; PULSE 86; RESP 16; TEMP 97.9
[2018-11-06] MEDS: NICOTINE 21MG/24HR PATCH TRANSDERM SCH (08:44)
[2018-11-06] MEDS: hydrOXYzine PAMOATE 25 MG CAP PO PRN (08:46)
--- NOTE | 2018-11-06 11:57 | P.DS ---
Providers Date of admission: 11/02/18 12:40 Expected date of discharge: 11/06/18 Attending physician: Richard Maria MD Consults: 11/02/18 13:58 Consult Physician Routine Consulting Provider: Stephan Magallon Consult Reason/Comments: H&P and medical Do you want consulting provider notified?: Yes Primary care physician: Armando Melendrez - Discharge Diagnosis(es) (1) Depressive disorder Current Visit: Yes Status: Acute Priority: High (2) Opiate dependence Current Visit: Yes Status: Acute Priority: Medium (3) Amphetamine abuse, continuous Current Visit: Yes Status: Acute Priority: Medium (4) Cocaine use disorder Current Visit: Yes Status: Acute Priority: Medium (5) Nicotine dependence Current Visit: Yes Status: Acute Priority: Low Hospital Course: Admission HPI: Patient is a 43-year-old male who currently is homeless, is however 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 Patient presented to the hospital after feeling depressed and after an allegedly suicide attempt where he overdosed on heroin. Patient was calm and directable during the interview was agreeable to speak to television script writer. Patient states that he was feeling an increase in his depression for the past several weeks and claims that he is had a stressor at home where he was working hard to get his back into the relationship however states that his recently left him for another man and states that this caused him to relapse back on drugs. He states that "I lost everything". Patient claims that about a year ago he relapsed back on fentanyl using approximately 1 g a day. He also states that he's been using other drugs including cocaine half gram a day math half gram a day and recently alcohol a fifth of vodka prior to coming to the hospital. He states that this recent drug use has been going on for the past to 3 months. He states that his mood is "horrible" and described feeling like he wanted to end his life prior to coming in the hospital. He admits to bad anxiety and poor sleep at night. Patient denies any suicidal or homicidal ideations intent or plan. At this time patient denies any auditory or visual hallucinations. Patient denies any flight of ideas racing thoughts and increased in goal directed behavior. Patient mentioned several times that he is going through withdrawals and appears to have rhinorrhea and was complaining of aches and pains over his body in his joints and stated that his anxiety was high. Patient admits to smoking cigarettes daily. Hospital course: Upon admission to the unit patient was initially appeared to be depressed, anxious and isolative. Patient was however directable and agreeable to commence treatment. Patient got along well with other patients on the unit and followed unit protocol. Patient was compliant with the medications and denied any side effects throughout hospital course. Patient was started on trazodone for insomnia and mood however needed to be discontinued as patient was complaining of restless leg symptoms while on the medication. Patient also was then started on doxepin 10 mg nightly for insomnia and mood which he tolerated better. Patient was also started on melatonin 5 mg nightly for sleep. Patient was also started on Vistaril 25 mg every 6 hours when necessary for anxiety. Patient was also started on medications for symptomatic withdrawal of polysubstances including clonidine, dicyclomine, loperamide, ibuprofen and acetaminophen. Patient spoke of his stressors and engaged in therapy both group and individual. Patient was also seen by medical team for history and physical exam. Throughout the course of the hospitalization patient gradually improved with regards to mood, anxiety, sleep and became future oriented with improved insight and judgment. Patient claims that his goal was to get into rehab at [facility] to work on his substance use in their program. On the day of discharge patient denied any suicidal or homicidal ideations intent or plan denied any auditory or visual hallucinations. Patient endorsed wanting to live for his health and family. The patient denied any access to guns or weapons. Patient denied any paranoia and did not endorse any delusions. Patient does have a significant history of substance abuse and was counseled on abstaining from all substances including alcohol and marijuana. Patient was also counseled on the medications and need for regular compliance and was encouraged to follow-up with their outpatient appointment for mental health and also for primary care. Prior to discharge a family meeting will be arranged by social worker masters to answer any questions and ensure safety upon discharge. Mental status exam: General Appearance: Patient appears to be stated age is alert, pleasant, and cooperative. Patient is in no acute distress and has fair hygiene and grooming Behavior: Patient is calmly seated without any agitated behavior. Speech: Patient's speech is fluent and nonpressured. Mood/Affect: Patient reports their mood is "much better ", affect is congruent and euthymic. Suicidality/Homicidality: Patient denies having any suicidal or homicidal ideation intent or plan. Perceptions: Patient denies any auditory or visual hallucinations. Though content/process: There is no evidence of any delusional thought content and thought process is linear and goal-directed. Patient is future oriented and spoke about different goals he has specially to go to rehab. Memory and concentration: AOX3, grossly intact for the purposes of this session. Can spell "WORLD" backwards correctly. Judgment and insight: fair, improved Impression: Depressive disorder unspecified Opiate use disorder Amphetamine/stimulant use disorder Cocaine use disorder Nicotine dependence Plan: -Continue with discharge today as patient has improved and stabilized psychiatrically and is not currently an imminent threat to himself and/or others. -Continue medications: Doxepin 10 mg daily at bedtime for mood and insomnia. Melatonin 5 mg nightly for sleep. Vistaril 25 mg twice a day when necessary for anxiety. Patient was offered prescriptions for symptomatic medications for withdrawal however patient declined at this time. -Patient was counseled on the need for medication compliance and appropriate follow-up at mental health and also primary care for medical issues. Patient verbalized understanding and agreed. -Social work to arrange for and conduct family meeting to ensure safety upon discharge and answer any questions/concerns. Social work also to arrange for patients follow up appointments for psychiatric care and primary care provider. Social work also help patient arrange for intake appointment at substance use rehab [facility] for next week. -Patient counseled on abstaining from recreational drugs and marijuana and alcohol. Was informed/educated on the adverse effects on their physical and mental health. Patient states that he wants to continue forward and will go to his intake appointment for inpatient substance use rehab at [facility]. -Patient was instructed to return to the hospital or seek immediate medical care if their psychiatric or medical systems do worsen or reoccur. Allergies Allergy/AdvReac Type Severity Reaction Status Date / Time influenza virus vaccine, Allergy Rash/Hives Verified 10/31/18 22:40 specific Penicillins Allergy Anaphylaxis Verified 10/31/18 22:40 Laboratory Results WBC 6.1 k/uL (3.8-10.6) 10/31/18 22:49 RBC 4.58 m/uL (4.30-5.90) 10/31/18 22:49 Hgb 14.4 gm/dL (13.0-17.5) 10/31/18 22:49 Hct 43.6 % (39.0-53.0) 10/31/18 22:49 MCV 95.2 fL (80.0-100.0) 10/31/18 22:49 MCH 31.4 pg (25.0-35.0) 10/31/18 22:49 MCHC 32.9 g/dL (31.0-37.0) 10/31/18 22:49 RDW 12.7 % (11.5-15.5) 10/31/18 22:49 Plt Count 304 k/uL (150-450) 10/31/18 22:49 Neutrophils % 54 % 10/31/18 22:49 Lymphocytes % 27 % 10/31/18 22:49 Monocytes % 7 % 10/31/18 22:49 Eosinophils % 6 % 10/31/18 22:49 Basophils % 3 % 10/31/18 22:49 Neutrophils # 3.3 k/uL (1.3-7.7) 10/31/18 22:49 Lymphocytes # 1.7 k/uL (1.0-4.8) 10/31/18 22:49 Monocytes # 0.4 k/uL (0-1.0) 10/31/18 22:49 Eosinophils # 0.4 k/uL (0-0.7) 10/31/18 22:49 Basophils # 0.2 k/uL (0-0.2) 10/31/18 22:49 PT 10.1 sec (9.0-12.0) 10/31/18 22:49 INR 0.9 (<1.2) 10/31/18 22:49 Sodium 143 mmol/L (137-145) 11/01/18 01:13 Potassium 4.2 mmol/L (3.5-5.1) 11/01/18 01:13 Chloride 110 mmol/L (98-107) H 11/01/18 01:13 Carbon Dioxide 28 mmol/L (22-30) 11/01/18 01:13 Anion Gap 5 mmol/L 11/01/18 01:13 BUN 11 mg/dL (9-20) 11/01/18 01:13 Creatinine 0.79 mg/dL (0.66-1.25) 11/01/18 01:13 Est GFR (CKD-EPI)AfAm >90 (>60 ml/min/1.73 sqM) 11/01/18 01:13 Est GFR (CKD-EPI)NonAf >90 (>60 ml/min/1.73 sqM) 11/01/18 01:13 Glucose 101 mg/dL (74-99) H 11/01/18 01:[address] Glu mg/dL 100 10/31/18 22:49 Hemoglobin A1c 5.1 % (4.0-6.0) 10/31/18 22:49 Calcium 8.7 mg/dL (8.4-10.2) 11/01/18 01:13 Total Bilirubin 0.2 mg/dL (0.2-1.3) 11/01/18 01:13 AST 149 U/L (17-59) H 11/01/18 01:13 ALT 175 U/L (21-72) H 11/01/18 01:13 Alkaline Phosphatase 56 U/L (38-126) 11/01/18 01:13 Total Protein 6.9 g/dL (6.3-8.2) 11/01/18 01:13 Albumin 3.7 g/dL (3.5-5.0) 11/01/18 01:13 Triglycerides 230 mg/dL (<150) H 11/01/18 01:13 Cholesterol 118 mg/dL (<200) 11/01/18 01:13 LDL Cholesterol, Calc 40 mg/dL (0-99) 11/01/18 01:13 HDL Cholesterol 32 mg/dL (40-60) L 11/01/18 01:13 TSH 0.795 mIU/L (0.465-4.680) 11/01/18 01:13 Salicylates <1.0 mg/dL 11/01/18 01:13 Urine Opiates Screen Detected (NotDetected) H 11/01/18 01:18 Ur Oxycodone Screen Not Detected (NotDetected) 11/01/18 01:18 Urine Methadone Screen Not Detected (NotDetected) 11/01/18 01:18 Ur Propoxyphene Screen Not Detected (NotDetected) 11/01/18 01:18 Acetaminophen <10.0 ug/mL 11/01/18 01:13 Ur Barbiturates Screen Not Detected (NotDetected) 11/01/18 01:18 U Tricyclic Antidepress Not Detected (NotDetected) 11/01/18 01:18 Ur Phencyclidine Scrn Not Detected (NotDetected) 11/01/18 01:18 Ur Amphetamines Screen Detected (NotDetected) H 11/01/18 01:18 U Methamphetamines Scrn Detected (NotDetected) H 11/01/18 01:18 U Benzodiazepines Scrn Not Detected (NotDetected) 11/01/18 01:18 Urine Cocaine Screen Not Detected (NotDetected) 11/01/18 01:18 U Marijuana (THC) Screen Not Detected (NotDetected) 11/01/18 01:18 Serum Alcohol <10 mg/dL 11/01/18 01:13 Vital Signs Temp 97.9 F 11/06/18 06:54 Pulse 86 11/06/18 06:54 Resp 16 11/06/18 06:54 BP 117/81 11/06/18 06:54 Pulse Ox 98 11/02/18 14:13 Patient Condition at Discharge: Stable Plan - Discharge Summary New Discharge Prescriptions: New Nicotine 21Mg/24Hr Patch [Habitrol] 1 patch TRANSDERM DAILY 14 Days patch Melatonin 5 mg PO HS 28 Days tablet Doxepin [SINEquan] 10 mg PO HS 28 Days cap hydrOXYzine PAMOATE [Vistaril] 25 mg PO BID 28 Days cap Continue Buprenorphine HCl/Naloxone HCl [Suboxone 8 mg-2 mg Sl Film] 1 film SL TID Discharge Medication List Buprenorphine HCl/Naloxone HCl [Suboxone 8 mg-2 mg Sl Film] 1 film SL TID [History] Doxepin [SINEquan] 10 mg PO HS 28 Days cap 11/06/18 [Rx] Melatonin 5 mg PO HS 28 Days tablet 11/06/18 [Rx] Nicotine 21Mg/24Hr Patch [Habitrol] 1 patch TRANSDERM DAILY 14 Days patch [Rx] hydrOXYzine PAMOATE [Vistaril] 25 mg PO BID 28 Days cap 11/06/18 [Rx] Follow up Appointment(s)/Referral(s): [facility] [Outside] - 11/11/18 10:45 am (Call daily for possible openings sooner. please bring: ID RX in [facility] Hospital D/C paperwork Your cell phone can go, but will be locked up. ) Armando Melendrez MD [Primary Care Provider] - 1-2 days Activity/Diet/Wound Care/Special Instructions: Activity and diet as tolerated. No guns or weapons in the home. Refrain from alcohol and drugs not prescribed by your physician. Take all medications as prescribed, attend follow up appointments as scheduled. If in need of medication refills, please go to your primary care physician, or to your out patient psychiatric physician. If in crisis, please call , or go the nearest ER for an evaluation. Discharge Disposition: HOME SELF-CARE
== END 2018-11-06 12:57 | disposition home or self-care (01) | DRG 881 ==
LOC: EC 22:19 → 3MHU 11-02 12:40
PROVIDERS: ADMIT Psychiatry & Neurology Psychiatry; ATTEND Psychiatry & Neurology Psychiatry
DX: F32.9 Major depressive disorder, single episode, unspecified (principal); F11.23 Opioid dependence with withdrawal; R45.851 Suicidal ideations; T40.1X2A Poisoning by heroin, intentional self-harm, initial encounter; F15.10 Other stimulant abuse, uncomplicated; F17.210 Nicotine dependence, cigarettes, uncomplicated; F43.10 Post-traumatic stress disorder, unspecified; F51.04 Psychophysiologic insomnia; G25.81 Restless legs syndrome; G89.29 Other chronic pain; K21.9 Gastro-esophageal reflux disease without esophagitis; B19.20 Unspecified viral hepatitis C without hepatic coma; M54.9 Dorsalgia, unspecified; R09.81 Nasal congestion; F41.9 Anxiety disorder, unspecified; F14.90 Cocaine use, unspecified, uncomplicated; Z71.51 Drug abuse counseling and surveillance of drug abuser; Z59.0 Homelessness; Z88.0 Allergy status to penicillin; Z88.7 Allergy status to serum and vaccine; Z81.1 Family history of alcohol abuse and dependence; Z82.49 Family history of ischemic heart disease and other diseases of the circulatory system; Z81.8 Family history of other mental and behavioral disorders; Y92.9 Unspecified place or not applicable
CPT/HCPCS: 36415; 80053; 80061; 80306; 80320; 80329; 82075; 83036; 83520; 84443; 85025; 85610; 93005; 96372; 99285

== ENCOUNTER 2019-09-26 23:55 | Emergency (ER) | payer OTHER ==
[2019-09-26] MEDS ORDERED: LORazepam 2 MG/ML INJ IV STA (23:57)
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
[2019-09-27 00:15] LABS: Basophils # (A) 0.1 k/uL (0-0.2); Basophils % (A) 1 %; Eosinophils # (A) 0.1 k/uL (0-0.7); Eosinophils % (A) 1 %; HCT 43.1 % (39.0-53.0); HGB 14.2 gm/dL (13.0-17.5); Lymphocytes # (A) 0.8 k/uL (1.0-4.8); Lymphocytes % (A) 8 %; MCH 31.1 pg (25.0-35.0); MCHC 32.9 g/dL (31.0-37.0); MCV 94.6 fL (80.0-100.0); Mean Platelet Volume 7.4; Monocytes # (A) 0.4 k/uL (0-1.0); Monocytes % (A) 4 %; Neutrophils # (A) 9.1 k/uL (1.3-7.7); Neutrophils % (A) 85 %; Platelet Count 242 k/uL (150-450); RBC 4.56 m/uL (4.30-5.90); RDW 12.4 % (11.5-15.5); WBC 10.7 k/uL (3.8-10.6)
[2019-09-27 00:32] LABS: ALT 27 U/L (4-49); AST 49 U/L (17-59); Acetaminophen <10.0 ug/mL; African American GFR (CKD) 83 (>60 ml/min/1.73 sqM); Albumin 4.1 g/dL (3.5-5.0); Alcohol <10 mg/dL; Alkaline Phosphatase 88 U/L (38-126); Anion Gap 10 mmol/L; Blood Urea Nitrogen 27 mg/dL (9-20); Calcium 9.1 mg/dL (8.4-10.2); Carbon Dioxide 22 mmol/L (22-30); Chloride 104 mmol/L (98-107); Glucose 107 mg/dL (74-99); Non-African American GFR(CKD) 72 (>60 ml/min/1.73 sqM); Potassium 4.6 mmol/L (3.5-5.1); Salicylate <1.0 mg/dL; Sodium 136 mmol/L (137-145); Total Bilirubin 0.6 mg/dL (0.2-1.3); Total Protein 7.4 g/dL (6.3-8.2)
[2019-09-27 02:50] LABS: Appearance,Urine Slightly Cloudy (Clear); Hyaline Casts,Urine 1 /lpf (0-2); RBC,Urine 2 /hpf (0-5); Sperm,Urine Moderate /hpf; WBC,Urine 4 /hpf (0-5)
[2019-09-27 02:51] LABS: Bilirubin,Urine Negative (Negative); Blood,Urine Negative (Negative); Color,Urine Yellow; Glucose,Urine (UA) Negative (Negative); Ketones,Urine 1+ (Negative); Protein,Urine 1+ (Negative)
[2019-09-27 02:52] LABS: Leukocyte Esterase,Urine Negative (Negative); Nitrite,Urine Negative (Negative)
[2019-09-27 03:02] LABS: Amphetamine Screen,Urine Detected (NotDetected); Barbiturate Screen,Urine Not Detected (NotDetected); Benzodiazepines Screen,Urine Not Detected (NotDetected); Cocaine Screen,Urine Not Detected (NotDetected); Methadone Screen, Urine Not Detected (NotDetected); Opiate Screen,Urine Detected (NotDetected); Oxycodone Screen, Urine Not Detected (NotDetected); Phencyclidine Screen,Urine Not Detected (NotDetected); Tricyclic Antidepressant,Urine Not Detected (NotDetected); Urn Cannabinoid Scrn Not Detected (NotDetected)
[2019-09-27 07:04] VITALS: BP 97/59; PULSE 93; TEMP 97.8
[2019-09-27 07:09] VITALS: RESP 16
== END 2019-09-27 07:05 | disposition home or self-care (01) ==
LOC: EC 23:55
DX: F15.10 Other stimulant abuse, uncomplicated (principal); F11.10 Opioid abuse, uncomplicated; Z88.0 Allergy status to penicillin; Z88.7 Allergy status to serum and vaccine; F17.200 Nicotine dependence, unspecified, uncomplicated
CPT/HCPCS: 36415; 80053; 85025; 81001; 80306; 83520; 80329; 80320; 99285; 96374; J2060; 93005

== ENCOUNTER 2019-11-05 10:04 | Emergency (ER) | payer OTHER ==
[2019-11-05] MEDS ORDERED: LIDOCAINE 1% INJ 10MG/ML (20 ML MDV) SQ ONE (10:28)
[2019-11-05] MEDS ORDERED: HYDROmorphone 1 MG/ML 1 ML SYRINGE IM STA ×2 (10:29→11:18)
--- NOTE | 2019-11-05 10:32 | ED ---
Skin/Abscess/FB HPI - General Source: patient Mode of arrival: ambulatory Limitations: no limitations <Zeina Gray - Last Filed: 11/05/19 11:27> <Miles Espino - Last Filed: 11/05/19 11:44> - General Chief complaint: Skin/Abscess/Foreign Body Stated complaint: infection on arm Time Seen by Provider: 11/05/19 10:25 - History of Present Illness Initial comments: 44-year-old male presenting today for chief complaint of left forearm abscess. He states he is an IV drug usehistory of abscesses in the past. He states that he had one on his right fourth the need to be surgically drained in the past. Patient states he began to notice the abscess approximately 3 days ago, he states it has been growing in size/redness since and has become quite painful> Patient states he could no longer tolerate the pain and presented to the ER for evaluation/possible drainage. Patient denies fevers, chills, general malaise. He admits to some distal hand swelling, denies pain in the hand or limited ROM of digits. Patient states he is positive there is any retained pieces of needles in the arm. (Zeina Gray) - Related Data Home Medications Medication Instructions Recorded Confirmed Buprenorphine HCl/Naloxone HCl 1 film SL TID 07/13/18 10/31/18 [Suboxone 8 mg-2 mg Sl Film] Previous Rx's Medication Instructions Recorded Doxepin [SINEquan] 10 mg PO HS 28 Days cap 11/06/18 Melatonin 5 mg PO HS 28 Days tablet 11/06/18 Nicotine 21Mg/24Hr Patch [Habitrol] 1 patch TRANSDERM DAILY 14 Days 11/06/18 patch hydrOXYzine pamoate [Vistaril] 25 mg PO BID 28 Days cap 11/06/18 Cephalexin [Keflex] 500 mg PO Q6HR 5 Days #20 cap 11/05/19 HYDROcodone/APAP 5-325MG [[place] 1 tab PO Q6HR PRN 3 Days #12 tab 11/05/19 5-325] Sulfamethox-Tmp 800-160Mg [Bactrim 1 tab PO Q12HR 5 Days #10 tab 11/05/19 DS 800-160 mg] Allergies Allergy/AdvReac Type Severity Reaction Status Date / Time influenza virus vaccine, Allergy Rash/Hives Verified 11/05/19 10:18 specific Penicillins Allergy Anaphylaxis Verified 11/05/19 10:18 Review of Systems ROS Other: All systems not noted in ROS Statement are negative. <Zeina Gray - Last Filed: 11/05/19 11:27> ROS Other: All systems not noted in ROS Statement are negative. <Miles Espino - Last Filed: 11/05/19 11:44> ROS Statement: Those systems with pertinent positive or pertinent negative responses have been documented in the HPI. Past Medical History Past Medical History: Liver Disease Additional Past Medical History / Comment(s): alcohol abuse for years, hep c, drug addiction " all drugs" History of Any Multi-Drug Resistant Organisms: None Reported Past Surgical History: No Surgical Hx Reported Additional Past Surgical History / Comment(s): ganglion cyst, I/D of right forearm abscess. Past Anesthesia/Blood Transfusion Reactions: No Reported Reaction Past Psychological History: Anxiety, Bipolar, Depression, PTSD Smoking Status: Current every day smoker Past Alcohol Use History: Abuse Past Drug Use History: Cocaine, Heroin, IV Drug Use, Methamphetamine, Opiates, Prescription Drug Abuse - Past Family History Father Family Medical History: Myocardial Infarction ([place]) Mother Additional Family Medical History / Comment(s): MS <Zeina Gray - Last Filed: 11/05/19 11:27> General Exam Limitations: no limitations <Zeina Gray - Last Filed: 11/05/19 11:27> - General Exam Comments Initial Comments: General: The patient is awake and alert, in no distress Eye: Pupils are equal, round and reactive to light, extra-ocular movements are intact. No nystagmus. There is normal conjunctiva bilaterally. No signs of icterus. Cardiovascular: There is a regular rate and rhythm. No murmur, rub or gallop is appreciated. Respiratory: Lungs are clear to auscultation, respirations are non-labored, breath sounds are equal. No wheezes, stridor, rales, or rhonchi. Gastrointestinal: Soft, non-distended, non-tender abdomen without masses or organomegaly noted. There is no rebound or guarding present. Musculoskeletal: Normal ROM, no tenderness. Strength 5/5. Sensation intact. Radial pulses equal bilaterally 2+. Neurological: A&O x 3. CN II-XII intact grossly, There are no obvious motor or sensory deficits. Coordination appears grossly intact. Speech is normal. Skin: Skin is warm and dry and no rashes. There is a large 3x3cm raised red area that is tender to touch on the lateral dorsal aspect of the left forearm. There is surrounding erythema/warmth that extends just beyond the raised area. There is swelling of the right hand that is not red, no fusiform swelling of the digits or limited ROM. Psychiatric: Cooperative, appropriate mood & affect, normal judgment. (Zeina Gray) Course <Zeina Gray - Last Filed: 11/05/19 11:27> Vital Signs 11/05/19 10:14 Temperature 98.3 F Pulse Rate 111 H Respiratory 18 Rate Blood Pressure 131/77 O2 Sat by Pulse 97 Oximetry - Reevaluation(s) Reevaluation #1: Dr Espino took over care of patient. 11/05/19 11:27 (Zeina Gray) Procedures - Incision & Drainage Consent Obtained: verbal consent Site: other (forearm) Anesthetic Used: lidocaine 1%, with epi I&D Cleaning Method: Alcohol Wipe Sterile Field Used?: Yes Needle Aspiration Performed?: Yes (2-3cc purulent fluid) I&D Drainage Obtained: Pus Culture Obtained?: No Patient Tolerated Procedure: well <Miles Espino - Last Filed: 11/05/19 11:44> Medical Decision Making <Miles Espino - Last Filed: 11/05/19 11:44> - Medical Decision Making Patient care was signed out to me by Wanda Webster. Briefly, patient is a 44-year-old male he is an IV drug abuser. Patient at relapse. He injects with needles into his upper extremities. Today patient noted that he had increased redness pain and swelling to his left forearm. I&D attempt was performed by and Eleanor with no successful drainage of purulent fluid. Patient care was then signed out to me. Bedside ultrasound shows small amount of anechoic fluid in the forearm. Aspiration was performed with 18-gauge needle. Approximately 2-3 mL of purulent fluid was removed. Patient given dose of ceftriaxone. He is given a dose of Bactrim. He is given starter pack for Keflex and Bactrim. Patient also given analgesia. Patient is warned of the dangers of IV drug abuse. He is told that if he is to use IV drugs to use sterile equipment. Patient given starter packs for Bactrim and Keflex. Patient has been ALLERGY states that he has hives. Denies anaphylaxis with penicillin. He did report having taken Keflex before and tolerated it well. She will be discharged. He is told to follow up with his primary care physician or return to the emergency department if his symptoms worsen. (Miles Espino) Disposition <Zeina Gray - Last Filed: 11/05/19 11:27> Is patient prescribed a controlled substance at d/c from ED?: Yes If prescribed controlled substance>3 days was MAPS reviewed?: Prescribed <3 Days Time of Disposition: 11:36 <Miles Espino - Last Filed: 11/05/19 11:44> Clinical Impression: Subcutaneous abscess, Cellulitis Disposition: HOME SELF-CARE Condition: Fair Instructions (If sedation given, give patient instructions): Abscess Incision and Drainage (ED) Prescriptions: Sulfamethox-Tmp 800-160Mg [Bactrim DS 800-160 mg] 1 tab PO Q12HR 5 Days #10 tab Cephalexin [Keflex] 500 mg PO Q6HR 5 Days #20 cap HYDROcodone/APAP 5-325MG [[place] 5-325] 1 tab PO Q6HR PRN 3 Days #12 tab PRN Reason: Severe Pain Referrals: Armando Melendrez MD [Primary Care Provider] - 1-2 days
[2019-11-05] MEDS ORDERED: cefTRIAXone IN SWFI 1,000 MG/10 ML SYRINGE IVP STA (11:19)
[2019-11-05] MEDS ORDERED: SULFAMETHOX-TMP 800-160MG 1 EACH TAB PO STA (11:33)
[2019-11-05] MEDS ORDERED: SULFAMETH-TMP DS STARTER PACK 2 TAB BTL PO STA (11:33)
[2019-11-05] MEDS ORDERED: CEPHALEXIN 500MG STARTER PACK 4 CAP BTL PO STA (11:33)
[2019-11-05 11:51] VITALS: BP 154/78; PULSE 78; RESP 16; TEMP 98.4
== END 2019-11-05 11:49 | disposition home or self-care (01) ==
LOC: EC 10:04
DX: L02.414 Cutaneous abscess of left upper limb (principal); L03.114 Cellulitis of left upper limb; F17.200 Nicotine dependence, unspecified, uncomplicated; Z88.0 Allergy status to penicillin; Z88.7 Allergy status to serum and vaccine
CPT/HCPCS: 87070; 87205; 99283; 96374; 96372 ×2; 10160; J2001; J0696; J1170

== ENCOUNTER 2019-11-27 17:40 | Emergency (ER) | payer OTHER ==
[2019-11-27 18:14] VITALS: TEMP 98.2
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
[2019-11-27] MEDS ORDERED: SODIUM CHLORIDE 0.9% 1,000 ML IV STA (18:38)
[2019-11-27 19:04] LABS: Basophils # (A) 0.1 k/uL (0-0.2); Basophils % (A) 2 %; Eosinophils # (A) 0.3 k/uL (0-0.7); Eosinophils % (A) 4 %; HCT 44.1 % (39.0-53.0); HGB 15.1 gm/dL (13.0-17.5); Lymphocytes # (A) 2.2 k/uL (1.0-4.8); Lymphocytes % (A) 25 %; MCH 32.6 pg (25.0-35.0); MCHC 34.1 g/dL (31.0-37.0); MCV 95.5 fL (80.0-100.0); Mean Platelet Volume 6.7; Monocytes # (A) 0.5 k/uL (0-1.0); Monocytes % (A) 5 %; Neutrophils # (A) 5.4 k/uL (1.3-7.7); Neutrophils % (A) 62 %; Platelet Count 365 k/uL (150-450); RBC 4.62 m/uL (4.30-5.90); WBC 8.7 k/uL (3.8-10.6)
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
[2019-11-27 19:22] LABS: Albumin 4.2 g/dL (3.5-5.0); Calcium 9.3 mg/dL (8.4-10.2); Potassium 4.7 mmol/L (3.5-5.1); Total Bilirubin 0.4 mg/dL (0.2-1.3); Total Protein 8.3 g/dL (6.3-8.2)
[2019-11-27 20:33] VITALS: BP 129/82; PULSE 104; RESP 18
[2019-11-27 20:59] LABS: Appearance,Urine Clear (Clear); Bilirubin,Urine Negative (Negative); Blood,Urine Negative (Negative); Color,Urine Yellow; Glucose,Urine (UA) Negative (Negative); Ketones,Urine Negative (Negative); Leukocyte Esterase,Urine Negative (Negative); Nitrite,Urine Negative (Negative); PH, Urine 6.5 (5.0-8.0); Protein,Urine Negative (Negative); Specific Gravity,Urine 1.029 (1.001-1.035)
[2019-11-27 21:08] LABS: Amphetamine Screen,Urine Detected (NotDetected); Barbiturate Screen,Urine Not Detected (NotDetected); Benzodiazepines Screen,Urine Not Detected (NotDetected); Cocaine Screen,Urine Not Detected (NotDetected); Methadone Screen, Urine Not Detected (NotDetected); Opiate Screen,Urine Not Detected (NotDetected); Oxycodone Screen, Urine Not Detected (NotDetected); Phencyclidine Screen,Urine Not Detected (NotDetected); Tricyclic Antidepressant,Urine Not Detected (NotDetected); Urn Cannabinoid Scrn Not Detected (NotDetected)
== END 2019-11-27 21:06 | disposition home or self-care (01) ==
LOC: EC 17:40
DX: S51.812A Laceration without foreign body of left forearm, initial encounter (principal); S61.412A Laceration without foreign body of left hand, initial encounter; S81.001A Unspecified open wound, right knee, initial encounter; F17.200 Nicotine dependence, unspecified, uncomplicated; Z59.0 Homelessness; Z88.0 Allergy status to penicillin; Z88.7 Allergy status to serum and vaccine; X99.1XXA Assault by knife, initial encounter
CPT/HCPCS: 36415; 80053; 80306; 81003; 82550; 85025; 96360; 99284

== ENCOUNTER 2020-05-04 06:13 | Emergency (ER) | payer OTHER ==
[2020-05-04 06:22] VITALS: PULSE 130; RESP 22; TEMP 97.7
[2020-05-04 06:23] VITALS: BP 124/81
[2020-05-04] MEDS ORDERED: SODIUM CHLORIDE 0.9% 2,000 ML IV ONE (06:30)
[2020-05-04] MEDS ORDERED: LORazepam 2 MG/ML INJ IV STA (06:30)
--- NOTE | 2020-05-04 06:40 | ED ---
Psych HPI - General Chief Complaint: Psychiatric Symptoms Stated Complaint: Altered Mental Status Time Seen by Provider: 05/04/20 06:17 Source: patient, EMS, RN notes reviewed Mode of arrival: EMS Limitations: altered mental status - History of Present Illness Initial Comments: 44-year-old male presents emergency Department with chief complaint erratic behavior. Patient had bystander call EMS for his behavior. Patient does admit to using methamphetamines. Patient states there is a history of drug abuse including heroin. Patient denies any suicidal or homicidal. Patient patient states he is very thirsty, no abdominal or chest pain or shortness of breath he states he, cannot control his body at this time. - Related Data Home Medications Medication Instructions Recorded Confirmed No Known Home Medications 05/04/20 05/04/20 Allergies Allergy/AdvReac Type Severity Reaction Status Date / Time influenza virus vaccine, Allergy Rash/Hives Verified 05/04/20 07:50 specific Penicillins Allergy Anaphylaxis Verified 05/04/20 07:50 Review of Systems ROS Statement: Those systems with pertinent positive or pertinent negative responses have been documented in the HPI. ROS Other: All systems not noted in ROS Statement are negative. Past Medical History Past Medical History: Liver Disease Additional Past Medical History / Comment(s): alcohol abuse for years, hep c, drug addiction " all drugs" History of Any Multi-Drug Resistant Organisms: None Reported Past Surgical History: No Surgical Hx Reported Additional Past Surgical History / Comment(s): ganglion cyst, I/D of right forearm abscess. Past Anesthesia/Blood Transfusion Reactions: No Reported Reaction Past Psychological History: Anxiety, Bipolar, Depression, PTSD Smoking Status: Current every day smoker Past Alcohol Use History: Abuse Past Drug Use History: Cocaine, Heroin, IV Drug Use, Methamphetamine, Opiates, Prescription Drug Abuse - Past Family History Father Family Medical History: Myocardial Infarction ([place]) Mother Additional Family Medical History / Comment(s): MS General Exam Limitations: no limitations, altered mental status General appearance: alert, in no apparent distress, other (Erratic behavior, ag itated) Head exam: Present: atraumatic, normocephalic, normal inspection Eye exam: Present: normal appearance, PERRL, EOMI. Absent: scleral icterus, conjunctival injection, periorbital swelling ENT exam: Present: normal exam, normal oropharynx, mucous membranes moist Neck exam: Present: normal inspection, full ROM. Absent: tenderness, meningismus, lymphadenopathy Respiratory exam: Present: normal lung sounds bilaterally. Absent: respiratory distress, wheezes, rales, rhonchi, stridor Cardiovascular Exam: Present: normal rhythm, tachycardia, normal heart sounds. Absent: systolic murmur, diastolic murmur, rubs, gallop, clicks GI/Abdominal exam: Present: soft, normal bowel sounds. Absent: distended, tenderness, guarding, rebound, rigid Neurological exam: Present: alert, oriented X3 Skin exam: Present: warm, dry, intact, normal color. Absent: rash Course Vital Signs 05/04/20 06:16 Temperature 97.7 F Pulse Rate 130 H Respiratory 22 Rate Blood Pressure 124/81 O2 Sat by Pulse 94 L Oximetry Medical Decision Making - Medical Decision Making Patient presented for methamphetamines abuse. Patient is awake alert and orientated. Patient has a long history of drug abuse she is not suicidal homicidal. Patient be discharged. Disposition Clinical Impression: Methamphetamine abuse Disposition: HOME SELF-CARE Condition: Stable Instructions (If sedation given, give patient instructions): Methamphetamine Abuse (ED) Additional Instructions: Please return to the Emergency Department if symptoms worsen or any other concerns. Is patient prescribed a controlled substance at d/c from ED?: No Referrals: Armando Melendrez MD [Primary Care Provider] - 1-2 days Time of Disposition: 11:35
== END 2020-05-04 12:12 | disposition home or self-care (01) ==
LOC: EC 06:13
DX: F15.10 Other stimulant abuse, uncomplicated (principal); F14.10 Cocaine abuse, uncomplicated; F41.9 Anxiety disorder, unspecified; F32.9 Major depressive disorder, single episode, unspecified; F17.200 Nicotine dependence, unspecified, uncomplicated
CPT/HCPCS: 82075; 99284; 96374; 96361 ×2; J2060